=== PATIENT | male | born 1950 | race Two or more races ===

== ENCOUNTER → 2024-07-03 | Outpatient (CLI) | payer OTHER, MEDICAID, SELFPAY ==
[2024-07-03 13:33] LABS: Basophils % (Auto) 0 % (0-2.5); Eosinophils % (Auto) 1 % (0-10); Hematocrit 26.8 % (41.0-53.0); Hemoglobin 8.9 g/dL (13.5-16.0); Immature Granulocytes % (Auto) 0 % (0-0); Immature Reticulocyte Fraction 11.8 % (2.3-13.4); Lymphocytes # (Auto) 0.8 Thou/mm3 (1.0-4.8); Lymphocytes % (Auto) 29 % (10-50); Mean Corpuscular HGB Conc 33.2 g/dl (31.0-37.0); Mean Corpuscular Hemoglobin 34.2 pg (25.0-35.0); Mean Corpuscular Volume 103 fL (80-100); Monocytes # (Auto) 0.3 Thou/mm3 (0.0-0.8); Monocytes % (Auto) 11 % (0-12); Neutrophils # (Auto) 1.6 Thou/mm3 (1.8-7.7); Neutrophils % (Auto) 59 % (37-80); Nucleated Red Blood Cell % 0 /100 WBC (0); Platelet Count 169 Thou/mm3 (140-440); RDW Standard Deviation 52.8 fL (35.1-43.9); Reticulocyte % (Auto) 1.3 % (0.5-1.5); Reticulocyte Absolute Auto 32.5 Biln/L (25.0-75.0); Reticulocyte Hgb Content 36.3 pg (28.0-35.0)
[2024-07-03 13:40] LABS: Alanine Aminotransferase 29 U/L (10-49); Albumin/Globulin Ratio 0.8 (1.2-2.2); Alkaline Phosphatase 67 U/L (46-116); Anion Gap 6 (7-16); Aspartate Amino Transferase 21 U/L (0-34); BUN/Creatinine Ratio 27 Ratio (12-20); Bilirubin,Total 0.4 mg/dL (0.3-1.2); Blood Urea Nitrogen 32 mg/dL (9-23); Calcium 9.9 mg/dL (8.3-10.6); Calcium (Corrected) 9.9 mg/dL (8.5-10.1); Carbon Dioxide 27.9 mMol/L (20.0-31.0); Chloride 101 mMol/L (98-107); Creatinine (Component) 1.2 mg/dL (0.6-1.3); Globulin 5.1 gm/dL (2.3-3.5); Glucose 118 mg/dL (74-106); Osmolality,Calculated 278 (275-295); Potassium 3.8 mMol/L (3.4-5.1); Sodium 135 mMol/L (136-145); Total Protein 9.1 gm/dL (5.7-8.2); eGFR > 60 See Note
[2024-07-03 13:47] LABS: Ferritin 230 ng/mL (10.5-307.3); Total Iron Binding Capacity 233 mcg/dL (250-425)
[2024-07-03 13:50] LABS: Folate 13.53 ng/mL (>5.38); Vitamin B12 814 pg/mL (211-911)
[2024-07-03 13:56] LABS: Iron 77 mcg/dL (65-175); Percent Iron Saturation 33 % (20-55); Unsaturated Iron Binding 156 (225-295)
[2024-07-03 13:57] LABS: White Blood Count 2.8 Thou/mm3 (3.8-10.6)
== END | disposition home or self-care (01) ==
LOC: SCTO 11:45
PROVIDERS: PCP Family Medicine; Referring Provider Nurse Practitioner Family; Visit Provider Nurse Practitioner Family
DX: C25.9 Malignant neoplasm of pancreas, unspecified (principal)
CPT/HCPCS: 36415; 80053; 82607; 82728; 82746; 83540; 83550; 85025; 85046

== ENCOUNTER 2024-07-04 12:59 | Outpatient (RCR) | payer OTHER, MEDICAID, MEDICARE, SELFPAY ==
--- NOTE | 2024-07-16 19:16 | CTCFLWUP_ITS ---
Patient: BRISEYDA WALSH : 1950 Page 2 of 2 FOLLOW UP NOTE DATE OF SERVICE: 07/04/2024 NAME: BRISEYDA WALSH ACCOUNT: [id number] : 1950 AGE: 73 REASON FOR VISIT: Patient follows here for concern for elevated CA 19-9. ONCOLOGY HISTORY: There is no diagnosis of cancer for Mr. Walsh. INTERVAL HISTORY: PREVIOUS NOTE: Briseyda Walsh is a 73-year-old Malawian-speaking male who had been having intermittent abdominal pain. On 04/26/2018 he had a CA 19?9 drawn which was 145. Upper limit of nor mal is less than 34. 07/01/2018: CT scan of the chest abdomen and pelvis with IV contrast CA 19?9 trend: 04/26/2018: CA 19?9 is 145. 06/08/2018: CA 19?9 is 166. 09/28/2018: CA 19?9 is 183. 11/09/2018: CA 19?9 is 206. 03/03/2019: CA 19?9 is 189. 02/14/2020: CA 19?9 is 378. 03/29/2020: CA 19?9 is 210 09/30/2020: CA 19?9 is 212. 10/18/2018: CT scan of the chest abdomen and pelvis with IV contrast - 10/31/2018: MRI of the abdomen with contrast - 10/31/2018: Cholangiopancreatography MRI? 2019: Patient had EGD and colonoscopy done by Dr. Lozano. According to patient there were negative st udies. 08/05/2019: MRI of the abdomen with contrast? 04/03/2020: MRI of the abdomen and pelvis with contrast?no interval metastatic disease in the pelvis. 03/28/2021: Creatinine 1.9, EGFR 49. 05/08/2022: CA 19- 9 is 190. 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 MEDICATIONS: 1. Aspir-Low - 81 mg 1 tab Daily 2. atorvastatin - 40 mg 1 tab Daily 3. doxazosin - 8 mg 1 tab Daily 4. ferrous sulfate - 325 mg (65 mg iron) 1 tab Daily 5. lisinopril - 2.5 mg 1 tab Daily Medications Last Reconciled by Analisa Clifford MA on 07/04/2024 ALLERGIES: No Known Drug Allergies REVIEW OF SYSTEMS: A complete 14-point review of systems was performed and is negative except as noted in interval histo ry. PHYSICAL EXAMINATION: VITAL SIGNS: Temperature?98.7, B/P?165/85, Oxygen?Saturation?99% Weight?157?lbs PAIN: 0 - No pain EYE: Conjunctivae is pink. MOUTH: Oral cavity is dry. NECK: Supple, no adenopathy CHEST: Clear to auscultation. No wheezes or rales audible. CARDIAC: Rhythm regular, no murmurs or gallops present. ABDOMEN: Soft. No hepatomegaly. No splenomegaly. No areas of tenderness in the abdomen. EXTREMITIES: No pedal edema or cyanosis. LABORATORY DATA: I have personally reviewed and interpreted each of the patient?s relevant lab tests, abnormal finding s are below: Date 07/12/24 ??WHITE?BLOOD?COUNT?(Thou/mm3) 2.6?L ??RED?BLOOD?COUNT?(Miln/mm3) 2.50?L ??HEMOGLOBIN?(gm/dl) 8.5?L ??HEMATOCRIT?(%) 25.1?L ??PLATELET?COUNT?(Thou/mm3) 158 ??NEUTROPHILS?%,?AUTO?(%) 69 ??LYMPH?%,?AUTO?(%) 23 ??NEUTROPHILS,?AUTO?(Thou/mm3) 1.8 IMPRESSION/PLAN: #1 elevated CA 19-9 I discussed with Mr. Walsh that he has been followed for elevated tumor marker for many years Tumor marker is now normal CA 19-9 can be elevated in benign conditions causing obstruction We do not need any further follow-up of this Patient should have routine screening #2 anemia Reviewed patient's lab and do not indicate iron deficiency B12 and folic acid is normal Will do bone marrow biopsy as patient is having progressive anemia CBC CMP CEA CA 19-9 B12 folic acid BCR-ABL transcript serum protein electrophoresis serum amino phere sis multiple myeloma panel on bone marrow aspirate Return to clinic with above bone marrow biopsy Evaluate for multiple myeloma and leukemia RETURN TO CLINIC: 4 weeks BILLING AND COMPLIANCE: I reviewed external records from providers outside my specialty as summarized above. I spent a total of 50 minutes on this patient?s care on the day of their visit excluding time spent related to any bi lled procedures. This time includes time spent with the patient as well as time spent documenting in the medical record, reviewing patients records and tests, obtaining history, placing orders, communi cating with other healthcare professionals, counseling the patient, family or caregiver, and/or care coordination for the diagnoses above. Electronically Signed by: Rebel Hatch MD T: 7:12 PM CC: Araceli,? PCP: Lex Atkins Referring: Lex Atkins This document was completed utilizing speech recognition software. Grammatical errors, random word in sertions, pronoun errors, and incomplete sentences are an occasional consequence of this system due t o software limitations, ambient noise, and hardware issues. Any formal questions or concerns about th e content, text or information contained within the body of this dictation should be directly address ed to the provider for clarification.
== END 2024-08-01 23:59 | disposition home or self-care (01) ==
LOC: SCTC 12:59
PROVIDERS: PCP Family Medicine; Referring Provider Family Medicine; Visit Provider Internal Medicine Hematology & Oncology
DX: R97.8 Other abnormal tumor markers (principal); D64.9 Anemia, unspecified
CPT/HCPCS: 99213; G0463

== ENCOUNTER → 2024-07-12 | Outpatient (CLI) | payer OTHER, MEDICAID, SELFPAY ==
[2024-07-12 16:17] LABS: Basophils % (Auto) 0 % (0-2.5); Eosinophils % (Auto) 1 % (0-10); Hematocrit 25.1 % (41.0-53.0); Immature Granulocytes % (Auto) 0 % (0-0); Immature Granulocytes Auto 0.01 Thou/mm3 (0.00-0.00); Lymphocytes # (Auto) 0.6 Thou/mm3 (1.0-4.8); Lymphocytes % (Auto) 23 % (10-50); Mean Corpuscular HGB Conc 33.9 g/dl (31.0-37.0); Mean Corpuscular Volume 100 fL (80-100); Monocytes # (Auto) 0.2 Thou/mm3 (0.0-0.8); Monocytes % (Auto) 7 % (0-12); Neutrophils # (Auto) 1.8 Thou/mm3 (1.8-7.7); Neutrophils % (Auto) 69 % (37-80); Nucleated Red Blood Cell % 0 /100 WBC (0); Platelet Count 158 Thou/mm3 (140-440); RDW Standard Deviation 50.1 fL (35.1-43.9)
[2024-07-12 16:25] LABS: Hemoglobin 8.5 g/dL (13.5-16.0); White Blood Count 2.6 Thou/mm3 (3.8-10.6)
== END | disposition home or self-care (01) ==
PROVIDERS: PCP Family Medicine; Referring Provider Family Medicine; Visit Provider Family Medicine
DX: D64.9 Anemia, unspecified (principal); I10 Essential (primary) hypertension
CPT/HCPCS: 36415; 85025

== ENCOUNTER 2024-07-20 11:39 | Emergency (ER) | payer OTHER, SELFPAY ==
[2024-07-20 11:49] VITALS: BP 125/80; PULSE 79; RESP 19; TEMP 36.9; O2SAT 98; BMI 26.6
[2024-07-20] MEDS: KETOROLAC INJ 60 MG/2 ML VIAL 30 MG IM (12:43)
[2024-07-20] MEDS: predniSONE 20 MG TABLET 60 MG PO (12:44)
--- NOTE | 2024-07-20 12:55 | EDNOTE_ITS ---
ED Back Injury Pain RME/HPI General Chief Complaint: Back Pain/Injury Stated Complaint: lower back pain x 5 days Time Seen by Provider: 07/20/24 11:50 Source: patient Arrival date/time: 07/20/24 11:39 This is a 73-year-old male who presented to the emergency department with complaints of lumbar lower back pain. Patient reports history of 20 years bulging disc and lower back pain. Reports he was at home moving boxes and lifting heavy objects when he exacerbated his back. He routinely takes Tylenol or ibuprofen for pain however today the pain was worse prompting his visit today. Denies any urinary symptoms, no bowel or bladder dysfunction, patient is requesting a pain shot for his symptoms. Mode of arrival: ambulatory Related Data Home Medications ?Medication ?Instructions ?Recorded ?Confirmed aspirin 325 mg tablet,delayed 81 mg PO QDAY 10/10/21 03/26/23 release (Ecotrin) doxazosin 8 mg tablet 8 mg PO DAILY 10/10/21 03/26/23 lisinopril 2.5 mg tablet (Zestril) 2.5 mg PO QDAY 10/10/21 03/26/23 Previous Rx's ?Medication ?Instructions ?Recorded atorvastatin 20 mg tablet 40 mg (2 x 20 mg) PO HS #30 tabs 01/07/19 lidocaine 5 % topical patch 1 patch topical QDAY PRN back pain 07/20/24 #15 ea lidocaine 4 % topical patch 1 patch topical BID PRN pain #6 ea 07/21/24 Allergies Allergy/AdvReac Type Severity Reaction Status Date / Time No Known Allergies Allergy Verified 07/20/24 11:42 Review of Systems Review of Systems Systems Reviewed: All systems reviewed, normal except as documented Narrative Review of Systems: Gen: No fever, no chills, no weight loss EYES: No discharge, no visual changes, no pain HEENT: No ear pain, no congestion, no sore throat PULM: No shortness of breath, no cough, no congestion CV: No chest pain, no dyspnea on exertion, no palpitations GI: No nausea, no vomiting, no diarrhea, no pain, no constipation : No frequency, no urgency,? no dysuria Musc/skel: No joint pain, ++ back pain Skin: No rash? ED Exam Narrative Physical exam: General: Sittiing in Exam table in no acute distress, answering questions appropriately HENT: normocephalic, atraumatic, EOMI, PERRLA, moist mucous membranes Chest: chest wall is nontender Cardiac: regular rate and rhythm, normal S1 and S2, no murmurs, rubs, or gallops, capillary refill ?2 seconds Pulmonary: clear to auscultation bilaterally, no wheezing, crackles, or rhonchi Abdominal: active bowel sounds, soft, nontender, nondistended Neuro: A&OX3, CN II-XII intact, sensation grossly intact bilaterally in UE and LE. Skin: no rashes, no ecchymosis Ext: no lower extremity edema Course Quality Measures none Orders Category Date Time Status Ketorolac Inj [Toradol Inj] Med 07/20/24 12:04 Discontinued 30 mg IM X1 ONE predniSONE Med 07/20/24 12:04 Discontinued 60 mg PO X1 ONE Vital Signs Vital signs: Vital Signs Temperature 98.5 F 07/20/24 11:49 Pulse Rate 79 07/20/24 11:49 Respiratory Rate 19 07/20/24 11:49 Blood Pressure 125/80 07/20/24 11:49 Pulse Oximetry (%) 98 07/20/24 11:49 Oxygen Delivery Method Room Air 07/20/24 11:49 Back Pain / Injury Patient data External records reviewed:: [facility] previous records Clinical information provided by:: patient Social determinants that could affect healthcare access:: none Patient has the following chronic illnesses:: no How is presenting disease/condition affected by chronic disease/condition?: no chronic disease Evaluation data The following diagnostics were reviewed and interpreted by me:: radiology exam(s) Lab and/or radiology exams considered but not ordered:: no Interpretation Summary: no Medications / Prescriptions Medications or Prescriptions considered but not ordered:: no Medication administrations:: Medication Administration History Discontinued Medications Ketorolac Tromethamine (Ketorolac Inj 60 Mg/2 Ml Vial) 30 mg IM X1 ONE Stop: 07/20/24 12:05 Last Admin: 07/20/24 12:43 Dose: 30 mg Documented By: GM Prednisone (Prednisone 20 Mg Tablet) 60 mg PO X1 ONE Stop: 07/20/24 12:05 Last Admin: 07/20/24 12:44 Dose: 60 mg Documented By: GM All medications administered and effective Consultations Consultation(s) initiated? (list below): No Diagnosis Differential diagnosis back pain/injury: lumbar radiculopathy, sciatica and strain of lumbar region Most likely diagnosis given after review of the tests above:: Lumbar region strain Admission Indicated Admission indicated?: not indicated Admission Request Was there a request for admission?: No Disposition Plan Disposition Plan: Discharge Discharge Attestation Discharge Attestation: The patient and all family members were given an opportunity to ask questions and understood the discharge instructions. Discharge instructions specifically effects, indications for sooner follow up or return to the emergency department, and the expected course of current diagnosis. Patient condition: Stable Discharge Plan Plan Patient Disposition: HOME (Self Care) Patient condition on transfer: Stable Prescriptions/Referrals Prescriptions/Med Rec: New lidocaine 5 % adhesive patch,medicated 1 patch topical QDAY PRN (Reason: back pain ) Qty: 15 0RF Rx Instructions: leave on most painful area for up to 12 hrs lidocaine 4 % adhesive patch,medicated 1 patch topical BID PRN (Reason: pain) Qty: 6 0RF No Action atorvastatin 20 mg Tablet 40 mg PO HS Qty: 30 0RF doxazosin 8 mg tablet 8 mg PO DAILY aspirin [Ecotrin] 325 mg Tablet,Delayed Release (Dr/Ec) 81 mg PO QDAY lisinopril [Zestril] 2.5 mg Tablet 2.5 mg PO QDAY Referrals: Lex Atkins MD [Primary Care Provider] - In 1 week Problem List Clinical Impression: Lumbar radiculopathy Patient/Caregiver Discharge Instructions Discharge Activity: activity as tolerated Education Materials: ED Sciatica Additional Instructions: Please follow-up with your primary doctor for further care. Given 1 shot of pain medication please you can continue with NSAID or Tylenol for pain Return to the emergency department this any worsening symptoms or change in condition Print Language: Bulgarian Stand Alone Forms: Holly Award Info., Patient Portal Info Letter PA/BRANDIE Supervising Physician GIOVANNI/BRANDIE Supervising Physician: Dr. Carlton
== END 2024-07-20 14:22 | disposition home or self-care (01) ==
PROVIDERS: Emergency Provider Emergency Medicine; PCP Family Medicine
DX: M54.16 Radiculopathy, lumbar region (principal)
CPT/HCPCS: 96372; 99283; J1885; J7512

== ENCOUNTER → 2024-08-16 | Outpatient (CLI) | payer MEDICARE, MEDICAID, SELFPAY ==
[2024-08-16 11:23] LABS: Flow Cytometry* See Sep Rpt
[2024-08-16 11:46] LABS: Basophils % (Auto) 0 % (0-2.5); Eosinophils % (Auto) 1 % (0-10); Hematocrit 25.3 % (41.0-53.0); Immature Granulocytes % (Auto) 0 % (0-0); Immature Granulocytes Auto 0.01 Thou/mm3 (0.00-0.00); Immature Reticulocyte Fraction 8.6 % (2.3-13.4); Lymphocytes # (Auto) 0.8 Thou/mm3 (1.0-4.8); Lymphocytes % (Auto) 34 % (10-50); Mean Corpuscular HGB Conc 34.4 g/dl (31.0-37.0); Mean Corpuscular Hemoglobin 34.8 pg (25.0-35.0); Mean Corpuscular Volume 101 fL (80-100); Monocytes # (Auto) 0.2 Thou/mm3 (0.0-0.8); Monocytes % (Auto) 8 % (0-12); Neutrophils # (Auto) 1.4 Thou/mm3 (1.8-7.7); Neutrophils % (Auto) 57 % (37-80); Nucleated Red Blood Cell % 0 /100 WBC (0); Platelet Count 170 Thou/mm3 (140-440); RDW Standard Deviation 51.3 fL (35.1-43.9); Reticulocyte % (Auto) 1.3 % (0.5-1.5); Reticulocyte Hgb Content 33.8 pg (28.0-35.0)
[2024-08-16 11:54] LABS: White Blood Count 2.5 Thou/mm3 (3.8-10.6)
[2024-08-16 11:55] LABS: Hemoglobin 8.7 g/dL (13.5-16.0)
[2024-08-16 11:58] LABS: Alanine Aminotransferase 18 U/L (10-49); Albumin/Globulin Ratio 0.7 (1.2-2.2); Alkaline Phosphatase 79 U/L (46-116); Anion Gap 6 (7-16); Aspartate Amino Transferase 20 U/L (0-34); BUN/Creatinine Ratio 22 Ratio (12-20); Bilirubin,Total 0.4 mg/dL (0.3-1.2); Blood Urea Nitrogen 26 mg/dL (9-23); Calcium 9.8 mg/dL (8.3-10.6); Calcium (Corrected) 9.8 mg/dL (8.5-10.1); Carbon Dioxide 26.5 mMol/L (20.0-31.0); Chloride 106 mMol/L (98-107); Creatinine (Component) 1.2 mg/dL (0.6-1.3); Globulin 5.7 gm/dL (2.3-3.5); Glucose 100 mg/dL (74-106); Osmolality,Calculated 280 (275-295); Potassium 4.2 mMol/L (3.4-5.1); Sodium 138 mMol/L (136-145); Total Protein 9.7 gm/dL (5.7-8.2); eGFR > 60 See Note
[2024-08-16 12:07] LABS: Carcinoembryonic Antigen 2.1 ng/mL (0.0-5.0); Folate 12.61 ng/mL (>5.38); Vitamin B12 730 pg/mL (211-911)
[2024-08-23 13:48] LABS: Abnormal protein band 1 3.9 g/dL (NONE DETECTED); Albumin 4.1 g/dL (3.8-4.8); Alpha-1-Globulin 0.3 g/dL (0.2-0.3); Alpha-2-Globulin 0.7 g/dL (0.5-0.9); Beta-1-Globulin 0.3 g/dL (0.4-0.6); Beta-2-globulin 0.2 g/dL (0.2-0.5); Kappa Light Chain, Free 1615.3 mg/L (3.3-19.4); Lambda Light Chain, Free 10.4 mg/L (5.7-26.3)
[2024-08-24 06:41] LABS: Protein, total, serum 9.7 g/dL (6.1-8.1)
[2024-08-24 06:42] LABS: Beta 2 Microglobulin 4.77 mg/L (< OR = 2.51); CA 19-9 Antigen* 163 U/mL (<34); Kappa/Lambda, Free Ratio 155.32 (0.26-1.65); P190 BCR-ABL1 NOT DETECTED; P210 BCR-ABL1 NOT DETECTED
== END | disposition home or self-care (01) ==
PROVIDERS: PCP Family Medicine; Referring Provider Internal Medicine Hematology & Oncology; Visit Provider Internal Medicine Hematology & Oncology
DX: C25.9 Malignant neoplasm of pancreas, unspecified (principal); D61.818 Other pancytopenia
CPT/HCPCS: 36415; 80053; 81206; 82232; 82378; 82607; 82746; 83521; 84155; 84165; 85025; 85046; 86301; 86334

== ENCOUNTER → 2024-09-11 | Outpatient (CLI) | payer MEDICARE, MEDICAID, SELFPAY ==
--- NOTE | 2024-09-11 14:00 | XR_ITS ---
Examination: Metastatic bone survey 15 views TECHNIQUE: Marlon left lateral skull series, lateral cervical thoracic and lumbar spine, upright PA chest, AP right humerus AP left humerus, AP pelvis, AP right femur, AP left femur, AP right tibia-fibula, AP left tibia fibula, AP right forearm, AP left forearm 15 views Exam date and time: September 11, 2024 1414 hours INDICATIONS: Diagnosis malignant neoplasm pancreas, staging FINDINGS: Intact cranial vault Moderate degenerative disc disease C6-C7 Normal heart size No metastatic pulmonary nodules Suspicious for bone destruction involving the inferior margin L2 Subtle radiolucencies in the bilateral hips and inferior pubic rami IMPRESSION: Suspicious for bone destruction involving the inferior margin L2, recommend MRI lumbar spine follow-up pre and postcontrast Suspicious for osteolytic lesions in the bilateral hips and inferior pubic rami, consider MRI pelvis follow-up pre and postcontrast
== END | disposition home or self-care (01) ==
LOC: SDIM 13:45
PROVIDERS: PCP Family Medicine; Referring Provider Internal Medicine Hematology & Oncology; Visit Provider Internal Medicine Hematology & Oncology
DX: R93.7 Abnormal findings on diagnostic imaging of other parts of musculoskeletal system (principal); C25.9 Malignant neoplasm of pancreas, unspecified
CPT/HCPCS: 77074

== ENCOUNTER → 2024-09-13 | Outpatient (CLI) | payer MEDICARE, SELFPAY ==
[2024-09-13 11:04] LABS: Collection Type, Urine Clean Catch
[2024-09-13 11:24] LABS: Basophils % (Auto) 0 % (0-2.5); Eosinophils % (Auto) 2 % (0-10); Hematocrit 25.8 % (41.0-53.0); Immature Granulocytes % (Auto) 0 % (0-0); Immature Granulocytes Auto 0.01 Thou/mm3 (0.00-0.00); Lymphocytes # (Auto) 0.8 Thou/mm3 (1.0-4.8); Lymphocytes % (Auto) 31 % (10-50); Mean Corpuscular HGB Conc 33.3 g/dl (31.0-37.0); Mean Corpuscular Hemoglobin 34.3 pg (25.0-35.0); Mean Corpuscular Volume 103 fL (80-100); Monocytes # (Auto) 0.2 Thou/mm3 (0.0-0.8); Monocytes % (Auto) 8 % (0-12); Neutrophils # (Auto) 1.5 Thou/mm3 (1.8-7.7); Neutrophils % (Auto) 59 % (37-80); Nucleated Red Blood Cell % 0 /100 WBC (0); Platelet Count 183 Thou/mm3 (140-440); RDW Standard Deviation 51.7 fL (35.1-43.9); Red Blood Count 2.51 Miln/mm3 (4.50-5.90)
[2024-09-13 11:36] LABS: Hemoglobin 8.6 g/dL (13.5-16.0); White Blood Count 2.6 Thou/mm3 (3.8-10.6)
[2024-09-13 11:37] LABS: Bilirubin,Urine Negative (Negative); Blood,Urine Negative (Negative); Clarity,Urine Clear (Clear/Hazy); Color,Urine Lt-Yellow (Lt Yel-Yel); Glucose, Urine Negative (Negative); Ketones,Urine Negative (Negative); Leukocyte Esterase,Urine Negative (Negative); Nitrite,Urine Negative (Negative); Protein,Urine Trace (Neg - Trace); RBC,Urine 2 /hpf (0-3); Specific Gravity,Urine 1.023 (1.001-1.035); Squamous Epithelial Cell,Urine < 1 /hpf (0-5); Urobilinogen,Urine Negative mg/dL (0.0-1.0); WBC,Urine 1 /hpf (0-5)
[2024-09-13 12:00] LABS: Alanine Aminotransferase 20 U/L (10-49); Albumin, Serum 3.6 gm/dL (3.4-4.8); Albumin/Globulin Ratio 0.7 (1.2-2.2); Alkaline Phosphatase 64 U/L (46-116); Anion Gap 0 (7-16); Aspartate Amino Transferase 20 U/L (0-34); BUN/Creatinine Ratio 26 Ratio (12-20); Bilirubin,Total 0.4 mg/dL (0.3-1.2); Blood Urea Nitrogen 29 mg/dL (9-23); Calcium 9.9 mg/dL (8.3-10.6); Calcium (Corrected) 10.2 mg/dL (8.5-10.1); Carbon Dioxide 26.3 mMol/L (20.0-31.0); Cardiac Risk Estimate 2.1 RATIO (4.0-6.7); Chloride 109 mMol/L (98-107); Cholesterol 90 mg/dL (132-200); Creatinine (Component) 1.1 mg/dL (0.6-1.3); Globulin 5.5 gm/dL (2.3-3.5); Glucose 99 mg/dL (74-106); HDL Cholesterol 42 mg/dL (40-60); LDL Cholesterol,Calculated 34 mg/dL (0-130); Osmolality,Calculated 275 (275-295); Potassium 4.2 mMol/L (3.4-5.1); Sodium 135 mMol/L (136-145); Thyroid Stimulating Hormone 5.65 uIU/mL (0.55-4.78); Total Protein 9.1 gm/dL (5.7-8.2); Triglycerides 70 mg/dL (30-150); eGFR > 60 See Note
== END | disposition home or self-care (01) ==
LOC: COPL 10:18
PROVIDERS: PCP Family Medicine; Referring Provider Family Medicine; Visit Provider Family Medicine
DX: Z00.00 Encounter for general adult medical examination without abnormal findings (principal); I10 Essential (primary) hypertension; E78.2 Mixed hyperlipidemia
CPT/HCPCS: 36415; 80053; 80061; 81001; 84443; 85025

== ENCOUNTER 2024-09-27 15:39 | Outpatient (RCR) | payer MEDICARE, SELFPAY ==
--- NOTE | 2024-10-02 01:14 | CTCFLWUP_ITS ---
Patient: BRISEYDA WALSH : 1950 Page 3 of 5 FOLLOW UP NOTE DATE OF SERVICE: 09/27/2024 NAME: BRISEYDA WALSH ACCOUNT: [id number] : 1950 AGE: 73 INTERVAL HISTORY: PREVIOUS NOTE: Briseyda Walsh is a 73-year-old Australian-speaking male who had been having intermittent abdominal pain. On 04/26/2018 he had a CA 19?9 drawn which was 145. Upper limit of normal is less than 34. At last visit I had concern for causes of anemia and patient's myeloma workup was done. Patient is here to follow-up on results 07/01/2018: CT scan of the chest abdomen and pelvis with IV contrast CA 19?9 trend: 04/26/2018: CA 19?9 is 145. 06/08/2018: CA 19?9 is 166. 09/28/2018: CA 19?9 is 183. 11/09/2018: CA 19?9 is 206. 03/03/2019: CA 19?9 is 189. 02/14/2020: CA 19?9 is 378. 03/29/2020: CA 19?9 is 210 09/30/2020: CA 19?9 is 212. 10/18/2018: CT scan of the chest abdomen and pelvis with IV contrast - 10/31/2018: MRI of the abdomen with contrast - 10/31/2018: Cholangiopancreatography MRI? 2019: Patient had EGD and colonoscopy done by Dr. Lozano. According to patient there were negative studies. 08/05/2019: MRI of the abdomen with contrast? 04/03/2020: MRI of the abdomen and pelvis with contrast?no interval metastatic disease in the pelvis. 03/28/2021: Creatinine 1.9, EGFR 49. 05/08/2022: CA 19- 9 is 190. 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 Zaldivar dermatology 09/03/2023: CA 19?9 is 270 03/13/2024: CA 19?9 is 161, hemoglobin 9.6, MCV 800, ANC 1.8, WBC 3.0, iron saturation 37%, ferritin 162, B12 is 870 folate is 16.96 04/24/2024: CEA 19?9 is 161, hemoglobin 10.3, MCV 99, ANC 2.0, WBC 3.1, iron saturation 37%, ferritin 180, B12 is 1,239 ONCOLOGY HISTORY: DIAGNOSIS: Malignant neoplasm of pancreas, unspecified [ICD10] C25.9 DATE OF DIAGNOSIS: STAGE/TNM: TREATMENT HISTORY: Care?Plan Start?Date Cycle Day Intent HISTORY OF PRESENT ILLNESS: OTHER MEDICAL HISTORY/CONDITIONS: FAMILY HISTORY: SOCIAL HISTORY: MEDICATIONS: 1. Aspir-Low - 81 mg 1 tab Daily 2. atorvastatin - 40 mg 1 tab Daily 3. doxazosin - 8 mg 1 tab Daily 4. ferrous sulfate - 325 mg (65 mg iron) 1 tab Daily 5. lisinopril - 2.5 mg 1 tab Daily Medications Last Reconciled by Analisa Clifford MA on 09/27/2024 ALLERGIES: No Known Drug Allergies REVIEW OF SYSTEMS: A complete 14-point review of systems was performed and is negative except as noted in interval history. PHYSICAL EXAMINATION: VITAL SIGNS: Temperature?98.4, B/P?113/67, Oxygen?Saturation?97% PAIN: 0 - No pain EYE: Conjunctivae is pink. MOUTH: Oral cavity is dry. NECK: Supple, no adenopathy CHEST: Clear to auscultation. No wheezes or rales audible. CARDIAC: Rhythm regular, no murmurs or gallops present. ABDOMEN: Soft. No hepatomegaly. No splenomegaly. No areas of tenderness in the abdomen. EXTREMITIES: No pedal edema or cyanosis. LABORATORY DATA: I have personally reviewed and interpreted each of the patient?s relevant lab tests, abnormal findings are below: Date 09/13/24 ??WHITE?BLOOD?COUNT?(Thou/mm3) 2.6?L ??RED?BLOOD?COUNT?(Miln/mm3) 2.51?L ??HEMOGLOBIN?(gm/dl) 8.6?L ??HEMATOCRIT?(%) 25.8?L ??PLATELET?COUNT?(Thou/mm3) 183 ??NEUTROPHILS?%,?AUTO?(%) 59 ??LYMPH?%,?AUTO?(%) 31 ??NEUTROPHILS,?AUTO?(Thou/mm3) 1.5?L ASSESSMENT/PLAN: #1 elevated CA 19-9 I discussed with Mr. Walsh that he has been followed for elevated tumor marker for many years Tumor marker is now normal CA 19-9 can be elevated in benign conditions causing obstruction We do not need any further follow-up of this Patient should have routine screening #2 anemia concerning for multiple myeloma Reviewed patient's lab and do not indicate iron deficiency B12 and folic acid is normal CBC CMP CEA CA 19-9 B12 folic acid BCR-ABL transcript serum protein electrophoresis serum amino pheresis multiple myeloma panel on bone marrow aspirate. Patient's kappa lambda chains reviewed and are severely elevated Return to clinic with above bone marrow biopsy Evaluate for multiple myeloma and leukemia X-ray is concerning for lytic lesions PET CT scan initial screening for multiple myeloma MRI lumbar spine with and without contrast PSA and alpha-fetoprotein for skin screening Foundation heme on bone marrow biopsy RETURN TO CLINIC: 2 to 4 weeks with the results BILLING AND COMPLIANCE: I reviewed external records from providers outside my specialty as summarized above. I spent a total of 50 minutes on this patient?s care on the day of their visit excluding time spent related to any billed procedures. This time includes time spent with the patient as well as time spent documenting in the medical record, reviewing patients records and tests, obtaining history, placing orders, communicating with other healthcare professionals, counseling the patient, family or caregiver, and/or care coordination for the diagnoses above. Electronically Signed by: Rebel Hatch MD T: 1:12 AM CC: Ricki?Jillian? PCP: Rebel Hatch Referring: Rebel Hatch This document was completed utilizing speech recognition software. Grammatical errors, random word insertions, pronoun errors, and incomplete sentences are an occasional consequence of this system due to software limitations, ambient noise, and hardware issues. Any formal questions or concerns about the content, text or information contained within the body of this dictation should be directly addressed to the provider for clarification.
== END 2024-09-29 23:59 | disposition home or self-care (01) ==
LOC: SCTC 15:39
PROVIDERS: PCP Family Medicine; Referring Provider Internal Medicine Hematology & Oncology; Visit Provider Internal Medicine Hematology & Oncology
DX: R97.8 Other abnormal tumor markers (principal); D64.9 Anemia, unspecified; R10.9 Unspecified abdominal pain; Z71.2 Person consulting for explanation of examination or test findings
CPT/HCPCS: 99213; G0463

== ENCOUNTER 2024-10-04 07:24 | Outpatient (CLI) | payer MEDICARE, SELFPAY ==
[2024-10-02 12:01] VITALS: BMI 25.4
--- NOTE | 2024-10-03 11:58 | EKG_ITS ---
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
[2024-10-03 17:33] LABS: Basophils % (Auto) 0 % (0-2.5); Eosinophils % (Auto) 0 % (0-10); Hematocrit 23.7 % (41.0-53.0); Immature Granulocytes % (Auto) 0 % (0-0); Immature Granulocytes Auto 0.01 Thou/mm3 (0.00-0.00); Lymphocytes % (Auto) 28 % (10-50); Mean Corpuscular HGB Conc 34.2 g/dl (31.0-37.0); Mean Corpuscular Hemoglobin 34.2 pg (25.0-35.0); Mean Corpuscular Volume 100 fL (80-100); Monocytes # (Auto) 0.2 Thou/mm3 (0.0-0.8); Monocytes % (Auto) 7 % (0-12); Neutrophils # (Auto) 2.3 Thou/mm3 (1.8-7.7); Neutrophils % (Auto) 65 % (37-80); Nucleated Red Blood Cell % 0 /100 WBC (0); Platelet Count 179 Thou/mm3 (140-440); RDW Standard Deviation 50.1 fL (35.1-43.9); Red Blood Count 2.37 Miln/mm3 (4.50-5.90); White Blood Count 3.5 Thou/mm3 (3.8-10.6)
[2024-10-03 17:35] LABS: Hemoglobin 8.1 g/dL (13.5-16.0)
[2024-10-03 17:40] LABS: INR 1.1 (0.9-1.3); Partial Thromboplastin Time 23.6 Seconds (22.0-36.0); Prothrombin Time 11.6 Seconds (9.0-12.2)
[2024-10-04] VITALS (7 sets, daily range): BP systolic 107–153; BP diastolic 58–80; PULSE 77–89; RESP 12–18; TEMP 36.7–36.9; O2SAT 95–100
--- NOTE | 2024-10-04 08:30 | XR_ITS ---
Examination: CT-guided percutaneous bone marrow aspiration right posterior superior iliac crest CT-guided bone biopsy deep, percutaneous, right posterior superior iliac crest Date and time of procedure: October 04, 2024 0941 hours INDICATIONS: Leukopenia, diagnosis malignant neoplasm pancreas Informed consent provided. A timeout was completed verifying correct patient, procedure, site and positioning. Technique: Axial 3 mm sections were obtained for localization of the right posterior superior iliac crest Appropriate area is marked. The patient's site was prepped and draped in sterile fashion Maximal sterile barrier technique utilized, including hand hygiene Local anesthesia was obtained with 1% lidocaine. Low dose protocols were performed. One or more of the following dose reduction techniques were used; automated exposure control, adjustment of the mA and/or KV according to patient size, use of iterative reconstruction technique. Utilizing CT fluoroscopic guidance 14-gauge bone marrow needle placed in the right posterior superior iliac crest 10 cc marrow removed, specimen indicated adequate by the technologist 5 cm bone core obtained Patient appears in stable condition during this procedure. At completion of the procedure, the patient is in satisfactory condition. Estimated blood loss 2 cc Complete pathology report to follow. Impression: Successful CT-guided percutaneous bone marrow aspiration right posterior superior iliac crest Successful CT-guided percutaneous bone biopsy deep right posterior superior iliac crest
[2024-10-04 09:27] LABS: Flow Cytometry* See Sep Rpt
[2024-10-04] MEDS: fentaNYL CIT INJ 50 mCg/ML AMP 2ML 100 MCG IVP (09:56)
== END 2024-10-04 11:15 | disposition home or self-care (01) ==
PROVIDERS: Radiology Diagnostic Radiology; PCP Family Medicine; Referring Provider Internal Medicine Hematology & Oncology; Visit Provider Internal Medicine Hematology & Oncology
DX: C25.9 Malignant neoplasm of pancreas, unspecified (principal); Z01.812 Encounter for preprocedural laboratory examination
CPT/HCPCS: 38222; 36415; 77012; 85025; 85610; 85730; 93005; J3010

== ENCOUNTER → 2024-10-09 | Outpatient (CLI) | payer MEDICARE, MEDICAID, SELFPAY ==
[2024-10-09 09:05] LABS: Collection Type, Urine Clean Catch
[2024-10-09 09:27] LABS: Basophils % (Auto) 0 % (0-2.5); Eosinophils % (Auto) 1 % (0-10); Hematocrit 26.2 % (41.0-53.0); Immature Granulocytes % (Auto) 0 % (0-0); Immature Granulocytes Auto 0.01 Thou/mm3 (0.00-0.00); Lymphocytes # (Auto) 0.7 Thou/mm3 (1.0-4.8); Lymphocytes % (Auto) 21 % (10-50); Mean Corpuscular HGB Conc 33.6 g/dl (31.0-37.0); Mean Corpuscular Volume 101 fL (80-100); Monocytes # (Auto) 0.2 Thou/mm3 (0.0-0.8); Monocytes % (Auto) 7 % (0-12); Neutrophils # (Auto) 2.3 Thou/mm3 (1.8-7.7); Neutrophils % (Auto) 71 % (37-80); Nucleated Red Blood Cell % 0 /100 WBC (0); Platelet Count 199 Thou/mm3 (140-440); RDW Standard Deviation 49.5 fL (35.1-43.9); Red Blood Count 2.59 Miln/mm3 (4.50-5.90); White Blood Count 3.3 Thou/mm3 (3.8-10.6)
[2024-10-09 09:35] LABS: Bilirubin,Urine Negative (Negative); Blood,Urine Negative (Negative); Clarity,Urine Clear (Clear/Hazy); Color,Urine Lt-Yellow (Lt Yel-Yel); Glucose, Urine Negative (Negative); Ketones,Urine Negative (Negative); Leukocyte Esterase,Urine Negative (Negative); Nitrite,Urine Negative (Negative); PH,Urine 6.5 (5.0-7.0); Protein,Urine 1+ (Neg - Trace); RBC,Urine 3 /hpf (0-3); Specific Gravity,Urine 1.021 (1.001-1.035); Squamous Epithelial Cell,Urine < 1 /hpf (0-5); Urobilinogen,Urine Negative mg/dL (0.0-1.0); WBC,Urine 2 /hpf (0-5)
[2024-10-09 09:45] LABS: Prostate Specific Antigen 1.31 ng/mL (0-4.00)
[2024-10-09 09:51] LABS: Alanine Aminotransferase 28 U/L (10-49); Albumin, Serum 3.9 gm/dL (3.4-4.8); Albumin/Globulin Ratio 0.6 (1.2-2.2); Alkaline Phosphatase 78 U/L (46-116); Anion Gap 3 (7-16); Aspartate Amino Transferase 24 U/L (0-34); BUN/Creatinine Ratio 25 Ratio (12-20); Bilirubin,Total 0.4 mg/dL (0.3-1.2); Blood Urea Nitrogen 32 mg/dL (9-23); Calcium 10.3 mg/dL (8.3-10.6); Calcium (Corrected) 10.4 mg/dL (8.5-10.1); Carbon Dioxide 27.4 mMol/L (20.0-31.0); Cardiac Risk Estimate 2.2 RATIO (4.0-6.7); Chloride 103 mMol/L (98-107); Cholesterol 95 mg/dL (132-200); Creatinine (Component) 1.3 mg/dL (0.6-1.3); Globulin 6.4 gm/dL (2.3-3.5); Glucose 111 mg/dL (74-106); HDL Cholesterol 43 mg/dL (40-60); LDL Cholesterol,Calculated 35 mg/dL (0-130); Osmolality,Calculated 274 (275-295); Potassium 4.5 mMol/L (3.4-5.1); Sodium 133 mMol/L (136-145); Thyroid Stimulating Hormone 3.69 uIU/mL (0.55-4.78); Total Protein 10.3 gm/dL (5.7-8.2); Triglycerides 83 mg/dL (30-150); eGFR 57 See Note
[2024-10-09 09:52] LABS: Hemoglobin 8.8 g/dL (13.5-16.0)
== END | disposition home or self-care (01) ==
PROVIDERS: PCP Family Medicine; Referring Provider Family Medicine; Visit Provider Family Medicine
DX: Z00.00 Encounter for general adult medical examination without abnormal findings (principal); E78.2 Mixed hyperlipidemia; I10 Essential (primary) hypertension
CPT/HCPCS: 36415; 80053; 80061; 81001; 84153; 84443; 85025

== ENCOUNTER 2024-10-19 09:15 | Outpatient (RCR) | payer MEDICARE, MEDICAID, SELFPAY ==
--- NOTE | 2024-10-13 12:24 | CTCCONSULT_ITS ---
[facility] [address] [place], [place] [address] Consultation Note Date: 10/13/2024 MR#: [id number] Name: BRISEYDA WALSH : 1950 Dx: C90.00 Multiple myeloma not in remission. Attending physician. Lex Atkins MD Reason for consultation. Patient with recent diagnosis of plasma cell myeloma with significant bone pain referred for urgent radiation oncology consultation. History of Present Illness: Patient is a 73-year-old gentleman with intermittent abdominal pain with elevated CA 19?9 of longstanding but imaging studies did not reveal any pancreatic mass or dilated duct or sign of any met disease. Patient however also had anemia concerning for multi myeloma and most recently had bone marrow aspirate and smear 10/04/2024 which revealed plasma cell myeloma 80% kappa restricted. FISH panel pending. Had bone survey September 11, 2024 which was suspicious of bone destruction L2 as well as osteolytic lesions in bilateral hips and inferior pubic rami. SPEP 08/16/2024 showed considerable elevation of kappa light chain 1615 and high kappa lambda ratio. Dr. Hatch has begun to see patient recently and was suspecting multiple myeloma and ordered bone marrow aspirate smear 10/04/2024 which revealed plasma cell myeloma 80% kappa restricted. FISH panel pending. MRI of L-spine and PET has also already been ordered. Past medical history. Long history of elevate skin cancers d CA 19-9 with no abdominal lesions noted. Hyperlipidemia depression hypertension skin cancers Meds. Tylenol #3 3 times daily as needed pain atorvastatin doxazosin lisinopril ferrous sulfate low-dose aspirin Allergies none known Social History: Patient retired bilingual [place]-speaking originally from [place]. Review of Systems: Pain controlled with pain most of the time. Denies any paralysis has mild constipation taking meds. Physical Exam: General: Well appearing gentleman in no acute distress HEENT: atraumatic normocephalic extraocular is intact no oral lesion no cervical or supraclavicular adenopathy CV: Chest clear to station heart regular rate and rhythm ABD: Soft and organomegaly tenderness EXT: No cyanosis clubbing or edema Back. Point tenderness in L3-4 region noted Assessment: 1. Patient with plasma cell myeloma 80% of bone marrow kappa restricted bone marrow aspirate smear FISH panel pending. [place] light chain considerably elevated on SPEP 2. Metastatic bone survey bone destruction L2 with osteolytic hips and inferior pubic rami. 3. MRI of L-spine and PET scan pending. 4. Has follow-up with patient care director oncologist Dr. Hatch next week. 5. I will see him following the imaging studies performed with the likely need for radiation therapy to L-spine area. 6. Currently on Tylenol 3 helping pain and I will adjust this as needed. 7. Thank you for allowing me to evaluate this patient. Cc Lex Atkins MD; Electronically signed by: Tejinder Najera MD, DABR 10/13/2024 12:22 PM
--- NOTE | 2024-10-13 16:30 | CTCTXPLN_ITS ---
[facility] [place] [address] [place], [place] [address] Physician Clinical Treatment Planning Note Date of Service: 10/13/2024 Name: BRISEYDA WALSH : 1950 The patient has agreed to proceed with Radiation therapy. Tests and supporting medical records were interpreted to assist in defining the tumor location and extent of disease. Further imaging will be necessary to contour and delineate the volume to which the XRT will be provided. A. Treatment Intent: palliative B. Modality: 6 MV C. Requested Technique:VMAT D. Treatment Site: L spine E. Critical structures to be contoured on plan: F. In order to accomplish this plan, I am ordering/Prescribing the followin. Simulations (s) will be performed to accomplish a reproducible treatment position, to determine optimal treatment portals/beam arrangements, to design beam modifying devices and verify treatment portals on patient prior to the commencement of Radiation Therapy.L spine 2. Devices; for immobilization and beam shaping:[place]ud [place] 3. CT Guidance for placement of XRT mix Scan area: 4. Portal images Frequency: 5. Invivo transit dose measurement once per week on all VMAT patients. 6. Special Physics Consult Requested for: 7. Other requests: Special procedure someone getting chemo /XRT G. Dose Objectives:palliative Electronically signed by: Tejinder Najera M.D. 10/13/2024 4:28 PM
--- NOTE | 2024-10-13 16:32 | CTCTXPLNST_ITS ---
Radiation Oncology Treatment Planning Sheet Name: BRISEYDA WALSH MR#: [id number] : 1950 Dx: C25.9 Malignant neoplasm of pancreas, unspecified Date of Service: 10/13/2024 Account #: ?? Pt Treatment Intent: curative palliative other: Stage: Procedure CPT # Ordered Spec. Procedure 45357 1 Mulligan Complex (set-up) 46463 L spine 1 Mulligan Simple 53569 IMRT Plan 10484 1 MLC Devices VMAT 10256 3 Mulligan 3 D 07267 TRTMT dev Complex 61916 vaklok 1 TRTMT dev simple 70848 Basic Néstor 34298 6 Special Dosimetry 34025 Spec Physics 17639 Port Films 11947 SRS Cranial/1FX 56026 SBR 5 FX or Less /ex: 5 = 5 fx 51260 IMRT Simple 25880 3000 10 IMRT Complex 02924 IGRT 73449 8 Rad del com 6-10 59682 Rad del com 11 93586 Cont Med Physics 70871 2 Treatment Planning 74908 1 Rad del com 20 mev 07512 Rad del inter 6 82528 Rad del inter 11 92014 Rad del simple 6-10 61000 Rad del simple 11 19203 Special Port Plan 26320 TRTMT dev inter 67172 Isodose Complex 70767 Isodose simple 01427 Resp Motion Mgmt Simulation 00272 Placement of Fiducial Markers 85859 Electronically Signed By: Tejinder Najera MD, DABR 10/13/2024 4:30 PM
--- NOTE | 2024-10-19 07:01 | CTCTXPLNST_ITS ---
Radiation Oncology Treatment Planning Sheet Name: BRISEYDA WALSH MR#: [id number] : 1950 Dx: C25.9 Malignant neoplasm of pancreas, unspecified Date of Service: 10/19/2024 Account #: ?? Pt Treatment Intent: curative palliative other: Stage: Procedure CPT # Ordered Spec. Procedure 68821 1 Mulligan Complex (set-up) 11719 L spine 1 Mulligan Simple 35695 1 IMRT Plan 61128 MLC Devices VMAT 14674 Mulligan 3 D 95039 1 TRTMT dev Complex 35306 vaklok 1 TRTMT dev simple 49592 Basic Néstor 79478 4 Special Dosimetry 90346 Spec Physics 42615 Port Films 50051 2 SRS Cranial/1FX 72462 SBR 5 FX or Less /ex: 5 = 5 fx 86301 IMRT Simple 30598 IMRT Complex 32580 IGRT 80069 Rad del com 6-10 44672 3000 10 Rad del com 11- 71202 Cont Med Physics 50053 2 Treatment Planning 14222 1 Rad del com 20 mev 66337 Rad del inter 6-10 28355 Rad del inter 11 59195 Rad del simple 6-10 53698 Rad del simple 11- 42855 Special Port Plan 44698 TRTMT dev inter 46531 Isodose Complex 05826 Isodose simple 19103 Resp Motion Mgmt Simulation 47573 Placement of Fiducial Markers 66919 Electronically Signed By: Tejinder Najera MD, DABR 10/19/2024 6:59 AM
--- NOTE | 2024-11-19 18:12 | CTCFLWUP_ITS ---
Patient: BRISEYDA WALSH : 1950 Page 6 of 8 FOLLOW UP NOTE DATE OF SERVICE: 10/19/2024 NAME: BRIESYDA WALSH ACCOUNT: [id number] : 1950 AGE: 74 INTERVAL HISTORY: Patient was seen at the last clinic and concern was her myeloma. Patient is here to discuss bone marrow biopsy results. PREVIOUS NOTE: Briseyda Walsh is a 74-year-old French-speaking male who had been having intermittent abdominal pain. On 04/26/2018 he had a CA 19?9 drawn which was 145. Upper limit of normal is less than 34. At last visit I had concern for causes of anemia and patient's myeloma workup was done. Patient is here to follow-up on results Patient was seen in the clinic 07/01/2018: CT scan of the chest abdomen and pelvis with IV contrast CA 19?9 trend: 04/26/2018: CA 19?9 is 145. 06/08/2018: CA 19?9 is 166. 09/28/2018: CA 19?9 is 183. 11/09/2018: CA 19?9 is 206. 03/03/2019: CA 19?9 is 189. 02/14/2020: CA 19?9 is 378. 03/29/2020: CA 19?9 is 210 09/30/2020: CA 19?9 is 212. 10/18/2018: CT scan of the chest abdomen and pelvis with IV contrast - 10/31/2018: MRI of the abdomen with contrast - 10/31/2018: Cholangiopancreatography MRI? 2019: Patient had EGD and colonoscopy done by Dr. Lozano. According to patient there were negative studies. 08/05/2019: MRI of the abdomen with contrast? 04/03/2020: MRI of the abdomen and pelvis with contrast?no interval metastatic disease in the pelvis. 03/28/2021: Creatinine 1.9, EGFR 49. 05/08/2022: CA 19- 9 is 190. 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 Zaldivar dermatology 09/03/2023: CA 19?9 is 270 03/13/2024: CA 19?9 is 161, hemoglobin 9.6, MCV 800, ANC 1.8, WBC 3.0, iron saturation 37%, ferritin 162, B12 is 870 folate is 16.96 04/24/2024: CEA 19?9 is 161, hemoglobin 10.3, MCV 99, ANC 2.0, WBC 3.1, iron saturation 37%, ferritin 180, B12 is 1,239 ONCOLOGY HISTORY:?[facility] On[facility] Hx? DIAGNOSIS: Malignant neoplasm of pancreas, unspecified [ICD10] C25.9 TREATMENT HISTORY: Care?Plan Start?Date Cycle Day Intent VRd?low?dex?he 11/06/2024 1 21 Palliative HISTORY OF PRESENT ILLNESS: OTHER MEDICAL HISTORY/CONDITIONS: HTN,?HIGH?CHOLESTEROL,?STROKE?2017 HERNIA?REPAIR?30YRS?AGO ?Clone Other Med Hx? FAMILY HISTORY: ?Clone Family Hx? SOCIAL HISTORY: Occupational?History:?RETIRED, LIVES WITH , SON Education?Level:?Completed something less than 8th grade Marital?Status:? Tobacco?Use?Years:?25 Tobacco?Use:?FORMER?SMOKER ETOH?Use:?DENIES Drug?Note:?DENIES ?Clone Social Hx? MEDICATIONS: 1. acyclovir - 400 mg 1 tab TWICE DAILY 2. allopurinol - 100 mg 1 tab Daily 3. Aspir-Low - 81 mg 1 tab Daily 4. atorvastatin - 40 mg 1 tab Daily 5. Compazine - 5 mg 5 mg Daily 6. dexAMETHasone - 20 mg 20 mg Daily 7. dexamethasone - 4 mg 5 tab Daily 8. doxazosin - 8 mg 1 tab Daily 9. ferrous sulfate - 325 mg (65 mg iron) 1 tab Daily 10. lisinopril - 2.5 mg 1 tab Daily 11. omeprazole magnesium - 20 mg 1 tab Daily 12. ondansetron - 8 mg 8 mg Daily 13. REVLIMID - 25 mg 1 Capsule Daily 14. Tylenol-Codeine #3 - 300-30 mg 1 tab Three times a day?[facility] Meds? Medications Last Reconciled by Nelida Bradshaw MA on 10/19/2024 ALLERGIES: No Known Drug Allergies REVIEW OF SYSTEMS: A complete 14-point review of systems was performed and is negative except as noted in interval history. PHYSICAL EXAMINATION:?CloneBlock PE? VITAL SIGNS: Temperature?99.2, B/P?129/73, Oxygen?Saturation?97% Weight?152.2?lbs (Change?since?10/13/24:?2.2?lbs) PAIN: 5 - Between moderate and severe pain EYE: Conjunctivae is pink. MOUTH: Oral cavity is dry. NECK: Supple, no adenopathy CHEST: Clear to auscultation. No wheezes or rales audible. CARDIAC: Rhythm regular, no murmurs or gallops present. ABDOMEN: Soft. No hepatomegaly. No splenomegaly. No areas of tenderness in the abdomen. EXTREMITIES: No pedal edema or cyanosis. LABORATORY DATA: I have personally reviewed and interpreted each of the patient?s relevant lab tests, abnormal findings are below: Date 11/16/24 11/17/24 ??WHITE?BLOOD?COUNT?(Thou/mm3) 1.9?L 1.7?L ??RED?BLOOD?COUNT?(Miln/mm3) 2.36?L 2.39?L ??HEMOGLOBIN?(gm/dl) 8.3?L 8.1?L ??HEMATOCRIT?(%) 23.7?L 23.7?L ??PLATELET?COUNT?(Thou/mm3) 129?L 111?L ??NEUTROPHILS?%,?AUTO?(%) 72 76 ??LYMPH?%,?AUTO?(%) 21 19 ??NEUTROPHILS,?AUTO?(Thou/mm3) 1.4?L 1.3?L ??GLUCOSE,RANDOM?(mg/dL) 130?H 123?H ??BLOOD?UREA?NITROGEN?(mg/dL) 25?H 27?H ??CREATININE?(mg/dL) 1.20 1.10 ??SODIUM?(mmol/L) 134?L 136 ??POTASSIUM?(mmol/L) 4.0 3.7 ??CHLORIDE?(mmol/L) 103 105 ??CrCl?(CandG)?(ml/min) 47.04 51.32 ??AST/SGOT?(Unit/L) 15 13 ??ALT/SGPT?(Unit/L) 20 18 ??ALKALINE?PHOSPHATASE?(Unit/L) 69 65 ??BILIRUBIN,?TOTAL?(mg/dL) 0.5 0.7 ??PROTEIN?TOTAL?(gm/dl) 8.8?H 8.5?H ??ALBUMIN,?SERUM?(gm/dl) 3.6 3.5 ??GLOBULIN?(gm/dl) 5.2?H 5.0?H ??ALBUMIN/GLOBULIN?RATIO 0.7?L 0.7?L ??CALCIUM,?SERUM?(mg/dL) 9.9 9.9 ??CALCIUM?SERUM?(CORRECTED)?(mg/dL) 10.2?H 10.3?H ASSESSMENT/PLAN:?Robert Hatch Assessment/Plan? #1 multiple myeloma Patient have elevated light chains Bone marrow biopsy shows more than 80% plasma cells X-ray showed lytic lesion Patient have multiple myeloma MRI showed lytic lesion Will refer to radiation oncology for radiation to the spine Will start on chemotherapy Patient also have crab criteria Will start on hydration and Zometa #2 anemia from multiple myeloma Reviewed patient's lab and do not indicate iron deficiency B12 and folic acid is normal Patient have multiple myeloma as per bone marrow biopsy results #3 elevated CA 19-9 I discussed with Mr. Walsh that he has been followed for elevated tumor marker for many years Tumor marker is now normal CA 19-9 can be elevated in benign conditions causing obstruction We do not need any further follow-up of this Patient should have routine screening RETURN TO CLINIC: Start chemo [facility]EV[facility] BILLING AND COMPLIANCE: I reviewed external records from providers outside my specialty as summarized above. I spent a total of 50 minutes on this patient?s care on the day of their visit excluding time spent related to any billed procedures. This time includes time spent with the patient as well as time spent documenting in the medical record, reviewing patients records and tests, obtaining history, placing orders, communicating with other healthcare professionals, counseling the patient, family or caregiver, and/or care coordination for the diagnoses above. Electronically Signed by: Rebel Hatch MD T: 6:10 PM CC: Ricki?Jillian,? PCP: Lex Atkins Referring: Lex Atkins This document was completed utilizing speech recognition software. Grammatical errors, random word insertions, pronoun errors, and incomplete sentences are an occasional consequence of this system due to software limitations, ambient noise, and hardware issues. Any formal questions or concerns about the content, text or information contained within the body of this dictation should be directly addressed to the provider for clarification.
== END 2024-10-30 23:59 | disposition home or self-care (01) ==
LOC: SCTC 09:15
PROVIDERS: PCP Family Medicine; Referring Provider Family Medicine; Visit Provider Internal Medicine Hematology & Oncology
DX: C90.00 Multiple myeloma not having achieved remission (principal); D63.8 Anemia in other chronic diseases classified elsewhere; Z71.2 Person consulting for explanation of examination or test findings; R97.8 Other abnormal tumor markers
CPT/HCPCS: 99213; G0463

== ENCOUNTER → 2024-10-26 | Outpatient (CLI) | payer MEDICARE, MEDICAID, SELFPAY ==
--- NOTE | 2024-10-26 10:15 | XR_ITS ---
Examination: MRI lumbar spine, without intravenous contrast. MRI lumbar spine , with intravenous contrast. Exam date and time: October 26, 2024 1130 hours Comparison bone survey September 11, 2024 INDICATIONS: Bone survey September 11, 2024 suspicious for bone destruction inferior margin L2, patient's diagnosis skin cancer, malignant neoplasm of the pancreas Technique: Multiple axial, sagittal and coronal images of the lumbar spine have been obtained with the Siemens high-resolution 1.5 Roya MRI scanner. Images obtained included T2 weighted fat suppressed sagittal sections, TR 3500, TE 46, T2 weighted coronal fat suppressed images, TR 3050, TE 84, T2-weighted transverse fat suppressed images, TR 30-60, TE 63, proton density transverse images, TR 4720, TE 46, and T1 weighted coronal images, TR 560, TE 13. Axial, sagittal and coronal images are obtained post intravenous injection 15 cc gadolinium. Findings: Adequate alignment lumbar vertebral bodies Mild compressions, chronic L3, L2 Adequate marrow signal lumbar vertebral bodies on the precontrast images Mild to moderate disc narrowing L5-S1 Diffuse lumbar disc desiccation L5-S1 4 mm central lumbar disc bulge contiguous with the right and left S1 nerve roots Postcontrast images do not demonstrate enhancement consistent with osteomyelitis or osseous metastatic disease No abnormal enhancing epidural tissue, no abnormal enhancement of the conus medullaris or cauda equina IMPRESSION: Negative for osteomyelitis discitis Negative for osseous metastatic disease L5-S1 4 mm central lumbar disc bulge contiguous with the right and left S1 nerve roots
== END | disposition home or self-care (01) ==
LOC: SMRI 09:52
PROVIDERS: PCP Family Medicine; Referring Provider Internal Medicine Hematology & Oncology; Visit Provider Internal Medicine Hematology & Oncology
DX: M51.379 Other intervertebral disc degeneration, lumbosacral region without mention of lumbar back pain or lower extremity pain (principal); C25.9 Malignant neoplasm of pancreas, unspecified
CPT/HCPCS: 72158; A9579

== ENCOUNTER → 2024-10-30 | Outpatient (CLI) | payer MEDICARE, SELFPAY ==
[2024-10-30 13:29] LABS: Basophils % (Auto) 0 % (0-2.5); Eosinophils % (Auto) 1 % (0-10); Hematocrit 26.4 % (41.0-53.0); Immature Granulocytes % (Auto) 0 % (0-0); Immature Granulocytes Auto 0.01 Thou/mm3 (0.00-0.00); Lymphocytes # (Auto) 0.8 Thou/mm3 (1.0-4.8); Lymphocytes % (Auto) 28 % (10-50); Mean Corpuscular HGB Conc 33.3 g/dl (31.0-37.0); Mean Corpuscular Hemoglobin 34.1 pg (25.0-35.0); Mean Corpuscular Volume 102 fL (80-100); Monocytes # (Auto) 0.2 Thou/mm3 (0.0-0.8); Monocytes % (Auto) 6 % (0-12); Neutrophils % (Auto) 65 % (37-80); Nucleated Red Blood Cell % 0 /100 WBC (0); Platelet Count 193 Thou/mm3 (140-440); RDW Standard Deviation 50.5 fL (35.1-43.9); Red Blood Count 2.58 Miln/mm3 (4.50-5.90)
[2024-10-30 13:39] LABS: Hemoglobin 8.8 g/dL (13.5-16.0)
[2024-10-30 13:49] LABS: Alanine Aminotransferase 19 U/L (10-49); Albumin, Serum 3.6 gm/dL (3.4-4.8); Albumin/Globulin Ratio 0.6 (1.2-2.2); Alkaline Phosphatase 76 U/L (46-116); Anion Gap 7 (7-16); Aspartate Amino Transferase 13 U/L (0-34); BUN/Creatinine Ratio 25 Ratio (12-20); Bilirubin,Total 0.5 mg/dL (0.3-1.2); Blood Urea Nitrogen 30 mg/dL (9-23); Calcium 9.9 mg/dL (8.3-10.6); Calcium (Corrected) 10.2 mg/dL (8.5-10.1); Carbon Dioxide 25.1 mMol/L (20.0-31.0); Chloride 103 mMol/L (98-107); Creatinine (Component) 1.2 mg/dL (0.6-1.3); Globulin 6.3 gm/dL (2.3-3.5); Glucose 105 mg/dL (74-106); Osmolality,Calculated 276 (275-295); Sodium 135 mMol/L (136-145); Total Protein 9.9 gm/dL (5.7-8.2); eGFR > 60 See Note
== END | disposition home or self-care (01) ==
LOC: COPL 11:57 → SCTO 12:01
PROVIDERS: PCP Internal Medicine Hematology & Oncology; Referring Provider Internal Medicine Hematology & Oncology; Visit Provider Internal Medicine Hematology & Oncology
DX: C25.9 Malignant neoplasm of pancreas, unspecified (principal); R77.9 Abnormality of plasma protein, unspecified; C90.00 Multiple myeloma not having achieved remission
CPT/HCPCS: 36415; 80053; 85025

== ENCOUNTER → 2024-10-31 | Outpatient (CLI) | payer MEDICARE, SELFPAY ==
--- NOTE | 2024-10-31 10:15 | XR_ITS ---
EXAMINATION: PET/CT FUSION SKULL TO THIGH EXAM DATE AND TIME: October 31, 2024 1055 hours Comparison MRI lumbar spine October 26, 2024, metastatic bone survey September 11, 2024, MRI abdomen 05/01/2024 INDICATIONS: Diagnosis multiple myeloma, pancreatic carcinoma CTDI:vol (mGy) 9.43 DLP: (mGycm) 843.73 PROCEDURE: 15 mCi FDG was administered intravenously To allow for distribution and uptake of radiotracer, the patient was allowed to rest quietly in a shielded room. Imaging was performed on an integrated 16-slice PET/CT scanner, with scanning from the skull base to the mid thigh. Serum blood glucose at the time of the injection was measured 114 mg/dL. CT scanning was performed without oral or intravenous contrast material. FINDINGS: Head and Neck: There is no sola hypermetabolism in the neck. The visualized portions of the brain are normal in appearance on CT. Chest: There is no sola hypermetabolism in the chest. There are no pulmonary nodules. Abdomen and Pelvis: There is no sola hypermetabolism in retroperitoneal or pelvic chains. The spleen is normal in size and FDG avidity. Musculoskeletal: All of the visualized osseous structures are hypermetabolic, cervical thoracic lumbar vertebral bodies, bones of the pelvis sacral segments and ribs CT examination shows subtle osteolytic lesions in both frontal bones axial image 17 each measuring 10 mm, right occipital bone 8 mm axial image 44, subtle osteolytic areas in bilateral ribs, 15 mm osteolytic lesion T9 axial image 141, most prominent hypermetabolic areas in the spine included L3 T12, T9 T7 and posterior bilateral iliac bones IMPRESSION: Widespread osteolytic and hypermetabolic osseous lesions as above consistent with the patient's diagnosis of multiple myeloma Hypermetabolic pancreatic mass is not depicted
== END | disposition home or self-care (01) ==
PROVIDERS: Referring Provider Internal Medicine Hematology & Oncology; Visit Provider Internal Medicine Hematology & Oncology
DX: C25.9 Malignant neoplasm of pancreas, unspecified (principal); C90.00 Multiple myeloma not having achieved remission; C79.9 Secondary malignant neoplasm of unspecified site
CPT/HCPCS: 78815; A9552

== ENCOUNTER → 2024-11-10 | Outpatient (CLI) | payer MEDICARE, SELFPAY ==
[2024-11-10 11:39] LABS: Basophils % (Auto) 0 % (0-2.5); Eosinophils % (Auto) 1 % (0-10); Hematocrit 25.3 % (41.0-53.0); Immature Granulocytes % (Auto) 0 % (0-0); Immature Granulocytes Auto 0.01 Thou/mm3 (0.00-0.00); Lymphocytes # (Auto) 0.8 Thou/mm3 (1.0-4.8); Lymphocytes % (Auto) 23 % (10-50); Mean Corpuscular Hemoglobin 34.1 pg (25.0-35.0); Mean Corpuscular Volume 100 fL (80-100); Monocytes # (Auto) 0.3 Thou/mm3 (0.0-0.8); Monocytes % (Auto) 8 % (0-12); Neutrophils # (Auto) 2.3 Thou/mm3 (1.8-7.7); Neutrophils % (Auto) 68 % (37-80); Nucleated Red Blood Cell % 0 /100 WBC (0); Platelet Count 174 Thou/mm3 (140-440); RDW Standard Deviation 50.9 fL (35.1-43.9); Red Blood Count 2.52 Miln/mm3 (4.50-5.90); White Blood Count 3.4 Thou/mm3 (3.8-10.6)
[2024-11-10 11:46] LABS: Alanine Aminotransferase 17 U/L (10-49); Albumin, Serum 3.5 gm/dL (3.4-4.8); Albumin/Globulin Ratio 0.6 (1.2-2.2); Alkaline Phosphatase 76 U/L (46-116); Anion Gap 3 (7-16); Aspartate Amino Transferase 12 U/L (0-34); BUN/Creatinine Ratio 22 Ratio (12-20); Bilirubin,Total 0.4 mg/dL (0.3-1.2); Blood Urea Nitrogen 26 mg/dL (9-23); Calcium 9.9 mg/dL (8.3-10.6); Calcium (Corrected) 10.3 mg/dL (8.5-10.1); Carbon Dioxide 27.7 mMol/L (20.0-31.0); Chloride 104 mMol/L (98-107); Creatinine (Component) 1.2 mg/dL (0.6-1.3); Glucose 113 mg/dL (74-106); Osmolality,Calculated 275 (275-295); Potassium 3.9 mMol/L (3.4-5.1); Sodium 135 mMol/L (136-145); Total Protein 9.5 gm/dL (5.7-8.2); eGFR > 60 See Note
[2024-11-10 11:49] LABS: Hemoglobin 8.6 g/dL (13.5-16.0)
== END | disposition home or self-care (01) ==
LOC: SCTO 10:29
PROVIDERS: PCP Family Medicine; Referring Provider Internal Medicine Hematology & Oncology; Visit Provider Internal Medicine Hematology & Oncology
DX: C25.9 Malignant neoplasm of pancreas, unspecified (principal); R77.9 Abnormality of plasma protein, unspecified; C90.00 Multiple myeloma not having achieved remission
CPT/HCPCS: 36415; 80053; 85025

== ENCOUNTER 2024-11-16 10:50 | Emergency (ER) | payer MEDICARE, SELFPAY ==
[2024-11-16 10:51] VITALS: BMI 26.6
[2024-11-16 10:57] VITALS: BP 96/52; PULSE 100; RESP 18; TEMP 36.9; O2SAT 99
--- NOTE | 2024-11-16 11:34 | XR_ITS ---
Examination: PA lateral chest 2 views TECHNIQUE: Upright PA lateral chest 2 views Exam date and time: November 16, 2024 1234 hours FINDINGS: Normal heart size No pneumonia or pulmonary edema Moderate thoracic spondylosis IMPRESSION: No active disease
--- NOTE | 2024-11-16 11:34 | EKG_ITS ---
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
--- NOTE | 2024-11-16 11:35 | PD.EDRME ---
Rapid Medical Screening Exam [facility] Arrival date/time: 11/16/24 10:50 Patient complaining of sore throat cough was sent here for evaluation due to hypotension in his doctor's office. Patient's blood pressure 80s over 60s here in emergency department. I have greeted and performed a focused initial assessment of this patient. Initial appropriate labs ordered at this time. A comprehensive ED assessment and evaluation of the patient and analysis of all test and completion of medical decision making process will be conducted by additional ED provider. Chief Complaint: Recheck/Abnormal Lab/Rx Time Seen by Provider: 11/16/24 11:05 Vital signs: Vital Signs Temperature 98.5 F 11/16/24 10:57 Pulse Rate 100 11/16/24 10:57 Respiratory Rate 18 11/16/24 10:57 Blood Pressure 96/52 L 11/16/24 10:57 Pulse Oximetry (%) 99 11/16/24 10:57 Oxygen Delivery Method Room Air 11/16/24 10:57
[2024-11-16 12:05] LABS: Basophils % (Auto) 0 % (0-2.5); Eosinophils % (Auto) 1 % (0-10); Hematocrit 23.7 % (41.0-53.0); Immature Granulocytes % (Auto) 1 % (0-0); Immature Granulocytes Auto 0.01 Thou/mm3 (0.00-0.00); Lymphocytes # (Auto) 0.4 Thou/mm3 (1.0-4.8); Lymphocytes % (Auto) 21 % (10-50); Mean Corpuscular Hemoglobin 35.2 pg (25.0-35.0); Mean Corpuscular Volume 100 fL (80-100); Monocytes # (Auto) 0.1 Thou/mm3 (0.0-0.8); Monocytes % (Auto) 6 % (0-12); Neutrophils # (Auto) 1.4 Thou/mm3 (1.8-7.7); Neutrophils % (Auto) 72 % (37-80); Nucleated Red Blood Cell % 0 /100 WBC (0); Platelet Count 129 Thou/mm3 (140-440); RDW Standard Deviation 51.9 fL (35.1-43.9); Red Blood Count 2.36 Miln/mm3 (4.50-5.90)
[2024-11-16 12:11] LABS: Hemoglobin 8.3 g/dL (13.5-16.0)
[2024-11-16 12:13] LABS: White Blood Count 1.9 Thou/mm3 (3.8-10.6)
[2024-11-16 12:15] LABS: Alanine Aminotransferase 20 U/L (10-49); Albumin, Serum 3.6 gm/dL (3.4-4.8); Albumin/Globulin Ratio 0.7 (1.2-2.2); Alkaline Phosphatase 69 U/L (46-116); Anion Gap 5 (7-16); Aspartate Amino Transferase 15 U/L (0-34); BUN/Creatinine Ratio 21 Ratio (12-20); Bilirubin,Total 0.5 mg/dL (0.3-1.2); Blood Urea Nitrogen 25 mg/dL (9-23); Calcium 9.9 mg/dL (8.3-10.6); Calcium (Corrected) 10.2 mg/dL (8.5-10.1); Carbon Dioxide 25.9 mMol/L (20.0-31.0); Chloride 103 mMol/L (98-107); Creatinine (Component) 1.2 mg/dL (0.6-1.3); Estimated Creatinine Clearance 47.3 mL/min (>60); Globulin 5.2 gm/dL (2.3-3.5); Glucose 130 mg/dL (74-106); Lipase 60 U/L (12-53); Magnesium 1.7 mg/dL (1.6-2.6); Osmolality,Calculated 274 (275-295); Sodium 134 mMol/L (136-145); Total Protein 8.8 gm/dL (5.7-8.2); Troponin I < 0.020 ng/mL (0.0-0.045); eGFR > 60 See Note
[2024-11-16 12:26] LABS: Strep A Rapid Negative (Negative)
[2024-11-16 12:38] LABS: Collection Type, Urine Clean Catch
[2024-11-16 12:50] LABS: Bacteria,Urine Rare; Bilirubin,Urine Negative (Negative); Blood,Urine Negative (Negative); Color,Urine Yellow (Lt Yel-Yel); Hyaline Casts,Urine 2 /hpf (0-1); Ketones,Urine Negative (Negative); Leukocyte Esterase,Urine Positive (Negative); Nitrite,Urine Negative (Negative); PH,Urine 5.5 (5.0-7.0); Protein,Urine 1+ (Neg - Trace); RBC,Urine 4 /hpf (0-3); Specific Gravity,Urine 1.024 (1.001-1.035); Squamous Epithelial Cell,Urine < 1 /hpf (0-5); Urobilinogen,Urine Negative mg/dL (0.0-1.0); WBC,Urine 7 /hpf (0-5)
[2024-11-16 13:02] LABS: Clarity,Urine Hazy (Clear/Hazy); Glucose, Urine Negative (Negative)
[2024-11-16 14:43] VITALS: BP 132/66; PULSE 88; RESP 18; TEMP 36.6; O2SAT 99
[2024-11-16] MEDS: SODIUM CHLORIDE 0.9% 1000 ML 1,000 ML 999 ML IV (15:36)
--- NOTE | 2024-11-16 15:36 | EDNOTE_ITS ---
ED General RME/HPI General Chief complaint: Recheck/Abnormal Lab/Rx Stated complaint: LOW BP AT PCP Time Seen by Provider: 11/16/24 11:05 Arrival date/time: 11/16/24 10:50 RME / HPI RME / HPI narrative: 11/16/24 10:50 Patient complaining of sore throat cough was sent here for evaluation due to hypotension in his doctor's office. Patient's blood pressure 80s over 60s here in emergency department. I have greeted and performed a focused initial assessment of this patient. Initial appropriate labs ordered at this time. A comprehensive ED assessment and evaluation of the patient and analysis of all test and completion of medical decision making process will be conducted by additional ED provider. DR. CALVILLO MAIN ED EVALUATION: 74 y/o male with Hx of Cerebrovascular Accident, Hypercholesterolemia, Hyp ertension, Ulcer, Inguinal Hernia, Benign Prostatic Hyperplasia and Degenerative Disk Disease (lower back), Pneumonia, [place] fever, [place] Hx of multiple myeloma presents to ED BIB daughter c/o cough, sore throat, tiredness, and back pain x 1 week. Patient also reports experiencing diarrhea x yesterday. Patient reports that cough is causing pain to his back and is requesting medication to manage the cough. Per daughter, patient was advised to present to ED during an appointment today due to his low blood pressure to be evaluated. Denies any shortness of breath with normal activity. Patient is currently undergoing chemotherapy and radiation treatment. Per daughter, patient began chemotherapy on 11/06/24 and has completed 2 sessions. Patient has also completed 6 of 10 radiation treatment sessions. Patient was due for his 7th session today, but will be seen tomorrow morning to continue treatment. Patient was also supposed to receive hydration today. Patient reports no appetite, but has continued to eat and tries to stay hydrated. No modifying factors. No other concerns or complaints expressed at this time. Related Data Home Medications ?Medication ?Instructions ?Recorded ?Confirmed aspirin 325 mg tablet,delayed 81 mg PO QDAY 10/10/21 0 10/04/24 release (Ecotrin) Held on 10/04/24. Instructions: Resume on 10/07/24. doxazosin 8 mg tablet 8 mg PO DAILY 10/10/2110/04 lisinopril 2.5 mg tablet (Zestril) 2.5 mg PO QDAY 09/3010/04/24 acetaminophen 300 mg-codeine 30 mg 1 tab PO Q6H PRN pa in 10/04/24 10/04/24 tablet aspirin 81 mg tablet,delayed 81 mg PO QDAY 10/04/24 release Held on 10/04/24. Instructions: Resume on 10/07/24. Previous Rx's ?Medication ?Instructions ?Recorded atorvastatin 20 mg tablet 40 mg (2 x 20 mg) PO HS #30 tabs 01/07/19 benzonatate 100 mg capsule 100 mg PO TID PRN cough #20 caps 11/16/24 Allergies Allergy/AdvReac Type Severity Reaction Status Date / Time No Known Allergies Allergy Verified 11/16/24 10:55 Review of Systems Review of Systems Systems Reviewed: All systems reviewed, normal except as documented Narrative Review of Systems: Gen: POSITIVE cough, No fever, no chills, no weight loss EYES: No discharge, no visual changes, no pain HEENT: POSITIVE sore throat, No ear pain, no congestion PULM: No shortness of breath, POSITIVE cough, no congestion CV: No chest pain, no dyspnea on exertion, no palpitations GI: POSITIVE diarrhea and no appetite, No nausea, no vomiting, no pain, no constipation : No frequency, no urgency, no dysuria Musc/skel: No joint pain, no back pain Skin: No rash Psyc: No hallucinations, no depression Heme/Lymph: No easy bleeding or bruising tendencies Neuro: No weakness, no headache Past Medical History Past Medical History NEUROLOGIC: Positive Neurological Disorders and Cerebrovascular Accident (5 yrs ago, affected balance. affected peripheral vision) CARDIAC: Positive Cardiac Disorders, Hypercholesterolemia (TAKES MED) and Hypertension (TAKES MED) GASTROINTESTINAL: Positive Gastrointestinal Disorders and Ulcer GENITOURINARY: Positive Genitourinary Disorders (kidney infection), Inguinal Hernia (LEFT HERNIA SURG) and Benign Prostatic Hyperplasia (TAKES MED) MUSCULOSKELETAL: Positive Musculoskeletal Disorders and Degenerative Disk Disease (lower back) ENT: Positive Cataracts (right) OTHER HISTORY: Positive Hospitalization (HOSP FOR CVA), Chicken Pox, Measles, Mumps and Cancer Family History FAMILY HISTORY: Positive Family Cardiac Disorders (MOTHER,FATHER (HEART)), Family Gastrointestinal Problems (BROTHER (PANCREAS)), Family Cancer (BROTHER (PANCREAS)) and Family Surgery (MOTHER,FATHER,BROTHER,SISTER) ED Exam Narrative Physical exam: GENERAL APPEARANCE: AxOx4, generally well-appearing, no acute distress. HEENT: NC, AT. MMM. EOMI, clear conjunctiva, oropharynx clear. NECK: Supple without lymphadenopathy. No stiffness or restricted ROM. HEART: Normal rate and regular rhythm, normal S1/S1, no m/r/g LUNGS: CTAB, moving air well. No crackles or wheezes are heard. ABDOMEN: Soft, nontender, nondistended with good bowel sounds heard. BACK: No midline C/T/L spine pain or deformity, No CVAT, no obvious deformity. EXTREMITIES: Without cyanosis, clubbing or edema. MUSCULOSKELETAL: FROM of all major joints, no chest tenderness NEUROLOGICAL: Grossly nonfocal. Alert and oriented, moving all 4 extremities. CN not formally tested but appear grossly intact. Observed to ambulate with normal gait. Skin: Warm and dry without any rash. Course Quality Measures none Orders Category Date Time Status Bedside Influenza A&B Antigen Test NOW Care 11/16/24 11:34 Completed EKG (ED ONLY) *Do not use* NOW Care 11/16/24 11:34 Completed NPO STAT Care 11/16/24 11:34 Completed EKG (ED Only) Stat Exams 11/16/24 11:34 Draft XR chest 2V Stat Exams 11/16/24 11:34 Completed CBC Stat Lab 11/16/24 11:40 Completed Comprehensive Metabolic Panel Stat Lab 11/16/24 11:40 Completed Lipase Stat Lab 11/16/24 11:40 Completed Magnesium Stat Lab 11/16/24 11:40 Completed Strep A Rapid Stat Lab 11/16/24 12:11 Completed Troponin I Stat Lab 11/16/24 11:40 Completed Urinalysis Stat Lab 11/16/24 12:25 Completed Sodium Chloride 0.9% 1000 ml [Ns] 1,000 ml Med 11/16/24 15:24 Discontinued IV 999 mls/hr Vital Signs Vital signs: Vital Signs Temperature 98.5 F 11/16/24 10:57 Pulse Rate 100 11/16/24 10:57 Respiratory Rate 18 11/16/24 10:57 Blood Pressure 96/52 L 11/16/24 10:57 Pulse Oximetry (%) 99 11/16/24 10:57 Oxygen Delivery Method Room Air 11/16/24 10:57 Procedures -ED EKG Interpretation #1: Date of EK11/16/24 Time of EK:48 Rate: 92 Interpretation: Interpreted by me Additional EKG comment: Normal sinus rhythm, HR 92 , normal axis, normal interval, no acute ST or T-wave changes, no STEMI. Critical Care Time Critical Care Time Critical Care Time: No Discharge Plan Plan Patient Disposition: HOME (Self Care) Prescriptions/Referrals Prescriptions/Med Rec: New benzonatate 100 mg capsule 100 mg PO TID PRN (Reason: cough) Qty: 20 0RF No Action atorvastatin 20 mg Tablet 40 mg PO HS Qty: 30 0RF doxazosin 8 mg tablet 8 mg PO DAILY aspirin [Ecotrin] 325 mg Tablet,Delayed Release (Dr/Ec) 81 mg PO QDAY lisinopril [Zestril] 2.5 mg Tablet 2.5 mg PO QDAY acetaminophen-codeine 300-30 mg tablet 1 tab PO Q6H PRN (Reason: pain) aspirin 81 mg tablet,delayed release (DR/EC) 81 mg PO QDAY Referrals: Lex Atkins MD [Primary Care Provider] - In 1 week Problem List Clinical Impression: Acute dehydration, Immunodeficiency secondary to chemotherapy Patient/Caregiver Discharge Instructions Education Materials: ED Dehydration (Adult) Additional Instructions: You are OK for radiation tomorrow. Consider referral to a ecdis n navigation operator. You can return to the emergency department sooner if symptoms worsen or for any new or concerning issues. Print Language: Mexican Stand Alone Forms: Holly Award Info., Patient Portal Info Letter MDM Patient Acuity Narrative: Scribe Attestation: Scarlet Smith am scribing for and in the presence of Dr. Calvillo. Provider Notation: Although this document has been carefully reviewed, there may still be some phonetic and other typographical errors. These errors are purely grammatical due to imperfections in the software program and should not be construed in any way to compromise the substance of the patient's medical care during this visit. Clinical Information Provided by: patient and family (daughter) Medical Records reviewed [facility] (Reviewed prior ED visit notes from 07/20/24. Patient was seen and discharged for Lumbar radiculopathy.) Meds/Rx considered, not ordered None Labs/Rad/Tests considered, not ordered None Chronic Illness/Social Conditions which may negatively complicate care or outcome(s)-explain: Cancer Explain: Cerebrovascular Accident, Hypercholesterolemia, Hypertension, Ulcer, Inguinal Hernia, Benign Prostatic Hyperplasia and Degenerative Disk Disease (lower back) EKG EKG Interpretation(s): see interpretation under the procedures tab. Labs Labs: Interpreted by me Lab(s) Interpretation(s): Refer to MDM narrative. Imaging Imaging interpretation: Interpreted by me and other (Radiologist) Imaging Interpretation(s): RADIOLOGY? Patient: BRISEYDA WALSH. Record#: [id number] Birthdate: 1950 Age/Sex: 74 / M Location: [facility] Attending Dr: Ordering Physician: Joe [facility])Michelle Date of Service: 11/16/24 Procedure(s): XR chest 2V Accession Number(s): [id number] cc: Lex Atkins MD; Tino Leal MD; Joe [facility])Michelle~ Examination: PA lateral chest 2 views TECHNIQUE: Upright PA lateral chest 2 views Exam date and time: November 16, 2024 1234 hours FINDINGS: Normal heart size No pneumonia or pulmonary edema Moderate thoracic spondylosis IMPRESSION: No active disease Dictated By: Tino Leal MD Signed By: Electronically signed by Tino Leal MD in [place] 11/16/24 1305 Medication Administration(s) Medication Administration History Discontinued Medications Sodium Chloride (Ns) 1,000 mls @ 999 mls/hr IV .Q1H1M ONE Stop: 11/16/24 16:24 Last Infusion: 11/16/24 16:59 Dose: Infused Documented By: Admin: 11/16/24 15:36 Dose: 999 mls/hr Documented By: TM See above if any. Diagnosis Differential Diagnosis ED Complaint MDM: Influenza A vs Influenza B vs Anorexia
[2024-11-16 16:00] VITALS: BP 145/71; PULSE 91; RESP 18; TEMP 36.8; O2SAT 100
[2024-11-16 17:13] VITALS: BP 120/92; PULSE 84; RESP 18; TEMP 37; O2SAT 97
== END 2024-11-16 17:14 | disposition home or self-care (01) ==
PROVIDERS: Nurse Practitioner Primary Care; Emergency Provider Emergency Medicine; PCP Family Medicine
DX: E86.0 Dehydration (principal); D84.821 Immunodeficiency due to drugs; E78.00 Pure hypercholesterolemia, unspecified; I10 Essential (primary) hypertension
CPT/HCPCS: 36415; 71046; 80053; 81001; 83690; 83735; 84484; 85025; 87400; 87651; 93005; 96360; 99284; J7030

== ENCOUNTER → 2024-11-17 | Outpatient (CLI) | payer MEDICARE, SELFPAY ==
[2024-11-17 12:30] LABS: Basophils % (Auto) 0 % (0-2.5); Eosinophils % (Auto) 1 % (0-10); Hematocrit 23.7 % (41.0-53.0); Immature Granulocytes % (Auto) 0 % (0-0); Lymphocytes # (Auto) 0.3 Thou/mm3 (1.0-4.8); Lymphocytes % (Auto) 19 % (10-50); Mean Corpuscular HGB Conc 34.2 g/dl (31.0-37.0); Mean Corpuscular Hemoglobin 33.9 pg (25.0-35.0); Mean Corpuscular Volume 99 fL (80-100); Monocytes # (Auto) 0.1 Thou/mm3 (0.0-0.8); Monocytes % (Auto) 5 % (0-12); Neutrophils # (Auto) 1.3 Thou/mm3 (1.8-7.7); Neutrophils % (Auto) 76 % (37-80); Nucleated Red Blood Cell % 0 /100 WBC (0); Platelet Count 111 Thou/mm3 (140-440); RDW Standard Deviation 49.6 fL (35.1-43.9); Red Blood Count 2.39 Miln/mm3 (4.50-5.90)
[2024-11-17 12:39] LABS: Hemoglobin 8.1 g/dL (13.5-16.0); White Blood Count 1.7 Thou/mm3 (3.8-10.6)
[2024-11-17 12:45] LABS: Prostate Specific Antigen 1.06 ng/mL (0-4.00)
[2024-11-17 12:46] LABS: Alanine Aminotransferase 18 U/L (10-49); Albumin, Serum 3.5 gm/dL (3.4-4.8); Albumin/Globulin Ratio 0.7 (1.2-2.2); Alkaline Phosphatase 65 U/L (46-116); Anion Gap 5 (7-16); Aspartate Amino Transferase 13 U/L (0-34); BUN/Creatinine Ratio 25 Ratio (12-20); Bilirubin,Total 0.7 mg/dL (0.3-1.2); Blood Urea Nitrogen 27 mg/dL (9-23); Calcium 9.9 mg/dL (8.3-10.6); Calcium (Corrected) 10.3 mg/dL (8.5-10.1); Chloride 105 mMol/L (98-107); Creatinine (Component) 1.1 mg/dL (0.6-1.3); Glucose 123 mg/dL (74-106); Osmolality,Calculated 278 (275-295); Potassium 3.7 mMol/L (3.4-5.1); Sodium 136 mMol/L (136-145); Total Protein 8.5 gm/dL (5.7-8.2); eGFR > 60 See Note
== END | disposition home or self-care (01) ==
LOC: COPL 10:58
PROVIDERS: PCP Family Medicine; Referring Provider Internal Medicine Hematology & Oncology; Visit Provider Internal Medicine Hematology & Oncology
DX: C25.9 Malignant neoplasm of pancreas, unspecified (principal); R79.9 Abnormal finding of blood chemistry, unspecified; C90.00 Multiple myeloma not having achieved remission
CPT/HCPCS: 36415; 80053; 82105; 84153; 85025

== ENCOUNTER → 2024-11-24 | Outpatient (CLI) | payer MEDICARE, SELFPAY ==
[2024-11-24 09:39] LABS: Basophils % (Auto) 0 % (0-2.5); Eosinophils % (Auto) 2 % (0-10); Hematocrit 21.7 % (41.0-53.0); Immature Granulocytes % (Auto) 1 % (0-0); Immature Granulocytes Auto 0.01 Thou/mm3 (0.00-0.00); Lymphocytes # (Auto) 0.3 Thou/mm3 (1.0-4.8); Lymphocytes % (Auto) 19 % (10-50); Mean Corpuscular Hemoglobin 34.9 pg (25.0-35.0); Mean Corpuscular Volume 100 fL (80-100); Monocytes # (Auto) 0.1 Thou/mm3 (0.0-0.8); Monocytes % (Auto) 7 % (0-12); Neutrophils # (Auto) 1.2 Thou/mm3 (1.8-7.7); Neutrophils % (Auto) 71 % (37-80); Nucleated Red Blood Cell % 0 /100 WBC (0); RDW Standard Deviation 51.6 fL (35.1-43.9); Red Blood Count 2.18 Miln/mm3 (4.50-5.90)
[2024-11-24 10:06] LABS: Hemoglobin 7.6 g/dL (13.5-16.0); Platelet Count 77 Thou/mm3 (140-440); White Blood Count 1.7 Thou/mm3 (3.8-10.6)
[2024-11-24 10:11] LABS: Alanine Aminotransferase 19 U/L (10-49); Albumin, Serum 3.8 gm/dL (3.4-4.8); Alkaline Phosphatase 59 U/L (46-116); Anion Gap 6 (7-16); Aspartate Amino Transferase 14 U/L (0-34); BUN/Creatinine Ratio 25 Ratio (12-20); Bilirubin,Total 0.4 mg/dL (0.3-1.2); Blood Urea Nitrogen 28 mg/dL (9-23); Calcium 9.5 mg/dL (8.3-10.6); Calcium (Corrected) 9.7 mg/dL (8.5-10.1); Carbon Dioxide 24.9 mMol/L (20.0-31.0); Chloride 104 mMol/L (98-107); Creatinine (Component) 1.1 mg/dL (0.6-1.3); Globulin 3.9 gm/dL (2.3-3.5); Glucose 127 mg/dL (74-106); Osmolality,Calculated 277 (275-295); Sodium 135 mMol/L (136-145); Total Protein 7.7 gm/dL (5.7-8.2); eGFR > 60 See Note
[2024-11-24 12:24] LABS: Slide Review Platelets confirmed
== END | disposition home or self-care (01) ==
LOC: COPL 09:08 → SCTO 10:25
PROVIDERS: PCP Family Medicine; Referring Provider Internal Medicine Hematology & Oncology; Visit Provider Internal Medicine Hematology & Oncology
DX: C25.9 Malignant neoplasm of pancreas, unspecified (principal); C90.00 Multiple myeloma not having achieved remission; R77.9 Abnormality of plasma protein, unspecified
CPT/HCPCS: 36415; 80053; 85025

== ENCOUNTER 2024-11-29 14:54 | Outpatient (RCR) | payer MEDICARE, MEDICAID, SELFPAY ==
--- NOTE | 2024-11-02 15:12 | CTCFLWUP_ITS ---
[facility] [address] [place], [place] [address] FOLLOW-UP NOTE Date: 11/02/2024 MR#: [id number] Name: BRISEYDA WALSH : 1950 Dx: C90.00 Multiple myeloma not in remission Patient is back after completing the MRI as well as PET scan The MRI 10/26/2024 was reread demonstrating abnormal enhancement L2-L3 consistent with involvement of patient's multiple myeloma. PET scan shows widespread osteolytic and hypermetabolic osseous lesions consistent with diagnosed multi myeloma with involvement of L3 T12 T9 T7 and posterior bilateral iliac bones. Bone survey 09/11/2024 suspicious for osteolytic lesions in L2 as well as pelvic regions. Spoke to patient who is on T #3 states that his pain is at a 10 in lumbar area. Patient is scheduled for Velcade Revlimid Decadron to be initiated next week. Spoke to Dr. Hatch about local radiation therapy L2-L3 area due to significant bone involvement consistent with MRI bone survey and PET scan findings along with severe pain. Will try to limit Field size to not cause myelosuppression or GI symptoms. To interfere with chemo and possible eventual stem cell transplant. Side effects explained. Treatments will be 10 fractions to be completed before end october. Electronically signed by: Tejinder Najera M.D. 11/02/2024 3:10 PM
--- NOTE | 2024-11-02 15:24 | CTCSNOTE_ITS ---
[facility] [address] [place], [place] [address] CT Simulation Note Date: 11/02/2024 MR# [id number] Name: BRISEYDA WALSH : 1950 (A) DIAGNOSIS: C25.9 Malignant neoplasm of pancreas, unspecified (B) Patient was placed in supine position and used Vac-Molly for immobilization purposes. (C) CT slices included L-spine (D) 3D Will be needed for maximum sparing of adjacent normal critical structures. (E) Patient tolerated the simulation well and left the room in good condition. Electronically signed by: Tejinder Najera MD, LEONARDR 11/02/2024 3:22 PM
[2024-11-03 09:21] LABS: Basophils % (Auto) 0 % (0-2.5); Eosinophils % (Auto) 0 % (0-10); Hematocrit 23.4 % (41.0-53.0); Immature Granulocytes % (Auto) 1 % (0-0); Immature Granulocytes Auto 0.02 Thou/mm3 (0.00-0.00); Lymphocytes # (Auto) 0.5 Thou/mm3 (1.0-4.8); Lymphocytes % (Auto) 15 % (10-50); Mean Corpuscular HGB Conc 34.6 g/dl (31.0-37.0); Mean Corpuscular Volume 98 fL (80-100); Monocytes # (Auto) 0.2 Thou/mm3 (0.0-0.8); Monocytes % (Auto) 6 % (0-12); Neutrophils # (Auto) 2.8 Thou/mm3 (1.8-7.7); Neutrophils % (Auto) 78 % (37-80); Nucleated Red Blood Cell % 0 /100 WBC (0); Platelet Count 173 Thou/mm3 (140-440); RDW Standard Deviation 48.2 fL (35.1-43.9); Red Blood Count 2.38 Miln/mm3 (4.50-5.90); White Blood Count 3.6 Thou/mm3 (3.8-10.6)
[2024-11-03 09:37] LABS: Alanine Aminotransferase 22 U/L (10-49); Albumin, Serum 3.9 gm/dL (3.4-4.8); Albumin/Globulin Ratio 0.6 (1.2-2.2); Alkaline Phosphatase 80 U/L (46-116); Anion Gap 8 (7-16); Aspartate Amino Transferase 21 U/L (0-34); BUN/Creatinine Ratio 28 Ratio (12-20); Bilirubin,Total 0.5 mg/dL (0.3-1.2); Blood Urea Nitrogen 33 mg/dL (9-23); Calcium 10.7 mg/dL (8.3-10.6); Calcium (Corrected) 10.8 mg/dL (8.5-10.1); Carbon Dioxide 23.3 mMol/L (20.0-31.0); Chloride 104 mMol/L (98-107); Creatinine (Component) 1.2 mg/dL (0.6-1.3); Globulin 6.6 gm/dL (2.3-3.5); Glucose 130 mg/dL (74-106); Osmolality,Calculated 279 (275-295); Potassium 4.4 mMol/L (3.4-5.1); Sodium 135 mMol/L (136-145); Total Protein 10.5 gm/dL (5.7-8.2); eGFR > 60 See Note
[2024-11-03 09:46] LABS: Hemoglobin 8.1 g/dL (13.5-16.0)
[2024-11-08 13:50] LABS: Kappa Light Chain, Free 1255.7 mg/L (3.3-19.4); Lambda Light Chain, Free 6.1 mg/L (5.7-26.3)
[2024-11-08 23:35] LABS: Abnormal protein band 1 4.3 g/dL (NONE DETECTED); Alpha-1-Globulin 0.3 g/dL (0.2-0.3); Alpha-2-Globulin 0.8 g/dL (0.5-0.9); Beta-1-Globulin 0.4 g/dL (0.4-0.6); Beta-2-globulin 0.2 g/dL (0.2-0.5); Gamma Globulin 4.5 g/dL (0.8-1.7)
[2024-11-09 06:46] LABS: Beta 2 Microglobulin 6.18 mg/L (< OR = 2.51); Kappa/Lambda, Free Ratio 205.85 (0.26-1.65); Protein, total, serum 10.2 g/dL (6.1-8.1)
[2024-11-24 17:51] LABS: Abnormal protein band 1 2.8 g/dL (NONE DETECTED); Albumin 3.4 g/dL (3.8-4.8); Alpha-1-Globulin 0.3 g/dL (0.2-0.3); Alpha-2-Globulin 0.8 g/dL (0.5-0.9); Beta-1-Globulin 0.3 g/dL (0.4-0.6); Beta-2-globulin 0.2 g/dL (0.2-0.5)
[2024-11-27 06:43] LABS: Protein, total, serum 7.9 g/dL (6.1-8.1)
[2024-11-27 11:22] LABS: Immunoglobulin G 3806 mg/dL (600-1540); Lambda Light Chain, Free 9.9 mg/L (5.7-26.3)
[2024-11-27 16:07] LABS: Basophils % (Auto) 0 % (0-2.5); Eosinophils % (Auto) 1 % (0-10); Hematocrit 22.5 % (41.0-53.0); Immature Granulocytes % (Auto) 0 % (0-0); Lymphocytes # (Auto) 0.3 Thou/mm3 (1.0-4.8); Lymphocytes % (Auto) 15 % (10-50); Mean Corpuscular HGB Conc 34.7 g/dl (31.0-37.0); Mean Corpuscular Hemoglobin 34.7 pg (25.0-35.0); Mean Corpuscular Volume 100 fL (80-100); Monocytes # (Auto) 0.3 Thou/mm3 (0.0-0.8); Monocytes % (Auto) 12 % (0-12); Neutrophils # (Auto) 1.6 Thou/mm3 (1.8-7.7); Neutrophils % (Auto) 72 % (37-80); Nucleated Red Blood Cell % 0 /100 WBC (0); RDW Standard Deviation 50.4 fL (35.1-43.9); Red Blood Count 2.25 Miln/mm3 (4.50-5.90)
[2024-11-27 16:14] LABS: Hemoglobin 7.8 g/dL (13.5-16.0); White Blood Count 2.2 Thou/mm3 (3.8-10.6)
[2024-11-27 16:15] LABS: Platelet Count 79 Thou/mm3 (140-440)
[2024-11-27 17:28] LABS: Slide Review Platelets confirmed
[2024-11-28 06:20] LABS: Beta 2 Microglobulin 4.89 mg/L (< OR = 2.51); Immunoglobulin A 16 mg/dL (70-320); Immunoglobulin M 36 mg/dL (50-300); Kappa/Lambda, Free Ratio 120.61 (0.26-1.65)
== END 2024-11-29 23:59 | disposition home or self-care (01) ==
LOC: SCTC 14:54
PROVIDERS: Internal Medicine Hematology & Oncology; PCP Family Medicine; Referring Provider Family Medicine; Visit Provider Radiology Therapeutic Radiology
DX: Z51.0 Encounter for antineoplastic radiation therapy (principal); Z51.11 Encounter for antineoplastic chemotherapy; C90.00 Multiple myeloma not having achieved remission; D63.0 Anemia in neoplastic disease; Z85.828 Personal history of other malignant neoplasm of skin
CPT/HCPCS: 36415; 36430; 77014; 77280; 77290; 77295; 77300; 77334; 77336; 77412; 80053; 82232; 82784; 83521; 84155; 84165; 85025; 86334; 86850; 86900; 86901; 86923; 96360; 96361; 96367; 96401; 96409; 99212; A4216; J1100; J2405; J7040; J7050; J9041; P9016; G0463

== ENCOUNTER → 2024-12-01 | Outpatient (CLI) | payer MEDICARE, SELFPAY ==
[2024-12-01 14:48] LABS: Basophils % (Auto) 0 % (0-2.5); Eosinophils % (Auto) 4 % (0-10); Hematocrit 25.4 % (41.0-53.0); Hemoglobin 8.9 g/dL (13.5-16.0); Immature Granulocytes % (Auto) 1 % (0-0); Immature Granulocytes Auto 0.01 Thou/mm3 (0.00-0.00); Lymphocytes # (Auto) 0.3 Thou/mm3 (1.0-4.8); Lymphocytes % (Auto) 23 % (10-50); Mean Corpuscular Hemoglobin 34.1 pg (25.0-35.0); Mean Corpuscular Volume 97 fL (80-100); Monocytes # (Auto) 0.1 Thou/mm3 (0.0-0.8); Monocytes % (Auto) 11 % (0-12); Neutrophils # (Auto) 0.7 Thou/mm3 (1.8-7.7); Neutrophils % (Auto) 62 % (37-80); Nucleated Red Blood Cell % 0 /100 WBC (0); RDW Standard Deviation 52.7 fL (35.1-43.9); Red Blood Count 2.61 Miln/mm3 (4.50-5.90)
[2024-12-01 14:54] LABS: Platelet Count 40 Thou/mm3 (140-440); White Blood Count 1.1 Thou/mm3 (3.8-10.6)
[2024-12-01 14:58] LABS: Alanine Aminotransferase 16 U/L (10-49); Albumin, Serum 3.8 gm/dL (3.4-4.8); Albumin/Globulin Ratio 1.2 (1.2-2.2); Alkaline Phosphatase 89 U/L (46-116); Anion Gap 7 (7-16); Aspartate Amino Transferase 11 U/L (0-34); BUN/Creatinine Ratio 21 Ratio (12-20); Bilirubin,Total 0.4 mg/dL (0.3-1.2); Blood Urea Nitrogen 25 mg/dL (9-23); Calcium 8.1 mg/dL (8.3-10.6); Calcium (Corrected) 8.3 mg/dL (8.5-10.1); Carbon Dioxide 28.1 mMol/L (20.0-31.0); Chloride 101 mMol/L (98-107); Creatinine (Component) 1.2 mg/dL (0.6-1.3); Globulin 3.2 gm/dL (2.3-3.5); Glucose 155 mg/dL (74-106); Osmolality,Calculated 279 (275-295); Potassium 4.3 mMol/L (3.4-5.1); Sodium 136 mMol/L (136-145); eGFR > 60 See Note
[2024-12-01 15:22] LABS: Slide Review Platelets confirmed
== END | disposition home or self-care (01) ==
LOC: COPL 14:02
PROVIDERS: PCP Family Medicine; Referring Provider Internal Medicine Hematology & Oncology; Visit Provider Internal Medicine Hematology & Oncology
DX: C25.9 Malignant neoplasm of pancreas, unspecified (principal); C90.00 Multiple myeloma not having achieved remission; R79.9 Abnormal finding of blood chemistry, unspecified
CPT/HCPCS: 36415; 80053; 85025

== ENCOUNTER → 2024-12-15 | Outpatient (CLI) | payer MEDICARE, SELFPAY ==
[2024-12-15 16:12] LABS: Basophils % (Auto) 1 % (0-2.5); Eosinophils # (Auto) 0.1 Thou/mm3 (0.0-0.5); Eosinophils % (Auto) 3 % (0-10); Hematocrit 27.6 % (41.0-53.0); Hemoglobin 9.1 g/dL (13.5-16.0); Immature Granulocytes % (Auto) 1 % (0-0); Immature Granulocytes Auto 0.02 Thou/mm3 (0.00-0.00); Lymphocytes # (Auto) 0.3 Thou/mm3 (1.0-4.8); Lymphocytes % (Auto) 16 % (10-50); Mean Corpuscular Hemoglobin 33.2 pg (25.0-35.0); Mean Corpuscular Volume 101 fL (80-100); Monocytes # (Auto) 0.2 Thou/mm3 (0.0-0.8); Monocytes % (Auto) 11 % (0-12); Neutrophils # (Auto) 1.5 Thou/mm3 (1.8-7.7); Neutrophils % (Auto) 69 % (37-80); Nucleated Red Blood Cell % 0 /100 WBC (0); Platelet Count 194 Thou/mm3 (140-440); RDW Standard Deviation 62.7 fL (35.1-43.9); Red Blood Count 2.74 Miln/mm3 (4.50-5.90)
[2024-12-15 16:21] LABS: White Blood Count 2.1 Thou/mm3 (3.8-10.6)
[2024-12-15 16:24] LABS: Alanine Aminotransferase 16 U/L (10-49); Albumin, Serum 3.7 gm/dL (3.4-4.8); Albumin/Globulin Ratio 1.6 (1.2-2.2); Alkaline Phosphatase 117 U/L (46-116); Anion Gap 10 (7-16); Aspartate Amino Transferase 10 U/L (0-34); BUN/Creatinine Ratio 16 Ratio (12-20); Bilirubin,Total 0.3 mg/dL (0.3-1.2); Blood Urea Nitrogen 19 mg/dL (9-23); Calcium 8.3 mg/dL (8.3-10.6); Calcium (Corrected) 8.5 mg/dL (8.5-10.1); Chloride 108 mMol/L (98-107); Creatinine (Component) 1.2 mg/dL (0.6-1.3); Globulin 2.3 gm/dL (2.3-3.5); Glucose 104 mg/dL (74-106); Osmolality,Calculated 289 (275-295); Potassium 4.1 mMol/L (3.4-5.1); Sodium 144 mMol/L (136-145); eGFR > 60 See Note
== END | disposition home or self-care (01) ==
LOC: SCTO 15:09
PROVIDERS: PCP Family Medicine; Referring Provider Internal Medicine Hematology & Oncology; Visit Provider Internal Medicine Hematology & Oncology
DX: C25.9 Malignant neoplasm of pancreas, unspecified (principal); R79.9 Abnormal finding of blood chemistry, unspecified; C90.00 Multiple myeloma not having achieved remission
CPT/HCPCS: 36415; 80053; 85025

== ENCOUNTER → 2024-12-22 | Outpatient (CLI) | payer MEDICARE, SELFPAY ==
[2024-12-29 15:32] LABS: Abnormal protein band 1 0.7 g/dL (NONE DETECTED); Albumin 3.4 g/dL (3.8-4.8); Alpha-1-Globulin 0.3 g/dL (0.2-0.3); Alpha-2-Globulin 0.8 g/dL (0.5-0.9); Beta-1-Globulin 0.3 g/dL (0.4-0.6); Beta-2-globulin 0.2 g/dL (0.2-0.5); Gamma Globulin 0.9 g/dL (0.8-1.7); Immunoglobulin G 1060 mg/dL (600-1540); Kappa Light Chain, Free 36.7 mg/L (3.3-19.4); Lambda Light Chain, Free 8.7 mg/L (5.7-26.3)
[2025-01-01 07:25] LABS: Immunoglobulin A 6 mg/dL (70-320); Immunoglobulin M 28 mg/dL (50-300); Kappa/Lambda, Free Ratio 4.22 (0.26-1.65); Protein, total, serum 5.9 g/dL (6.1-8.1)
== END | disposition home or self-care (01) ==
LOC: SCTO 17:01
PROVIDERS: PCP Family Medicine; Referring Provider Internal Medicine Hematology & Oncology; Visit Provider Internal Medicine Hematology & Oncology
DX: C25.9 Malignant neoplasm of pancreas, unspecified (principal); R77.9 Abnormality of plasma protein, unspecified; C90.00 Multiple myeloma not having achieved remission
CPT/HCPCS: 36415; 82784; 83521; 84155; 84165; 86334

== ENCOUNTER 2024-12-26 11:00 | Outpatient (RCR) | payer MEDICARE, SELFPAY ==
--- NOTE | 2024-12-04 06:05 | CTCFLWUP_ITS ---
Patient: BRISEYDA WALSH : 1950 Page 7 of 8 FOLLOW UP NOTE DATE OF SERVICE: 11/30/2024 NAME: BRISEYDA WALSH ACCOUNT: [id number] : 1950 AGE: 74 INTERVAL HISTORY: Amrik, a male with multiple myeloma, presented for treatment follow-up. His history includes skin cancer, borderline anemia, and reduced kidney function. After one cycle of Velcade, Revlimid 25mg, and dexamethasone 20mg, his [place] Lambda chains decreased from 1255 to 1190, with improved symptoms despite persistent anemia (Hgb Chief Complaint Follow-up for multiple myeloma treatment, monitoring of cancer markers, evaluation of skin lesions History of Present Illness Mr. Walsh, a patient with multiple myeloma, presents for follow-up of his ongoing cancer treatment. He reports feeling much better since his last visit. The patient's [place] Lambda chain levels have decreased from 1255 to 1190 after one cycle of treatment, indicating a modest improvement in his condition. He is currently on a regimen of Velcade, Revlimid (full dose of 25), and a low dose of steroids to avoid dementia-like symptoms. The patient's overall health status has improved since starting treatment. He reports feeling better in the last few days, with improved color and reduced anemia symptoms. His mood and energy levels have also improved, as he is now more active and engaged. The patient had been experiencing pain and discomfort, which have since eased with the initiation of pain medication. He no longer reports significant numbness and tingling, which were present before starting treatment. Mr. Walsh's functioning has improved, though he is not currently driving, and his is providing care. His cognitive function appears intact, with no reported brain fog and good conversations. The patient expresses willingness to continue with the prescribed treatment plan, stating he will do whatever you tell him to do. The patient has a history of skin cancer and currently has new spots of concern, including one where he previously had skin cancer and another black spot on his arm. He is scheduled to see a driver salesman for evaluation and possible biopsy of these areas. Medical History - Multiple myeloma - Skin cancer (1-2 years ago) - Borderline anemia for 6 years - Kidney function not 100% Surgical History - Skin cancer removal 1-2 years ago, location not specified Medications and Supplements - Revlimid 25 mg - Velcade - Low dose to avoid neuropathy - Dexamethasone 20 mg - Aspirin (baby aspirin) - To prevent blood clots associated with Revlimid - Calcium - Vitamin D Social History - Living Situation: Patient is cared for by his - Occupation: Not currently driving - Exercise: Advised to walk - Diet: Encouraged to eat and take calcium and vitamin D supplements - Stress/Coping: Experiencing mood changes and emotional fluctuations due to treatment - Social Support: provides care and support Review of Systems General: Positive for weight loss, improved mood. Skin: Positive for new skin lesions. Neurological: Positive for history of numbness and tingling. Psychiatric: Positive for improved mood, history of emotional changes. Musculoskeletal: Negative for bone pain. PREVIOUS NOTE: Briseyda Walsh is a 74-year-old Turkish-speaking male who had been having intermittent abdominal pain. On 04/26/2018 he had a CA 19?9 drawn which was 145. Upper limit of normal is less than 34. At last visit I had concern for causes of anemia and patient's myeloma workup was done. Patient is here to follow-up on results Patient was seen in the clinic 07/01/2018: CT scan of the chest abdomen and pelvis with IV contrast CA 19?9 trend: 04/26/2018: CA 19?9 is 145. 06/08/2018: CA 19?9 is 166. 09/28/2018: CA 19?9 is 183. 11/09/2018: CA 19?9 is 206. 03/03/2019: CA 19?9 is 189. 02/14/2020: CA 19?9 is 378. 03/29/2020: CA 19?9 is 210 09/30/2020: CA 19?9 is 212. 10/18/2018: CT scan of the chest abdomen and pelvis with IV contrast - 10/31/2018: MRI of the abdomen with contrast - 10/31/2018: Cholangiopancreatography MRI? 2019: Patient had EGD and colonoscopy done by Dr. Lozano. According to patient there were negative studies. 08/05/2019: MRI of the abdomen with contrast? 04/03/2020: MRI of the abdomen and pelvis with contrast?no interval metastatic disease in the pelvis. 03/28/2021: Creatinine 1.9, EGFR 49. 05/08/2022: CA 19- 9 is 190. 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 Zaldivar dermatology 09/03/2023: CA 19?9 is 270 03/13/2024: CA 19?9 is 161, hemoglobin 9.6, MCV 800, ANC 1.8, WBC 3.0, iron saturation 37%, ferritin 162, B12 is 870 folate is 16.96 04/24/2024: CEA 19?9 is 161, hemoglobin 10.3, MCV 99, ANC 2.0, WBC 3.1, iron saturation 37%, ferritin 180, B12 is 1,239 ONCOLOGY HISTORY:?[facility] On[facility] Hx? DIAGNOSIS: Malignant neoplasm of pancreas, unspecified [ICD10] C25.9 TREATMENT HISTORY: Care?Plan Start?Date Cycle Day Intent VRd?low?dex?he 11/06/2024 1 21 Palliative zometa?q?30?days,?q?90?days?for?bone?mets 11/19/2024 1 90 Palliative HISTORY OF PRESENT ILLNESS: OTHER MEDICAL HISTORY/CONDITIONS: HTN,?HIGH?CHOLESTEROL,?STROKE?2017 HERNIA?REPAIR?30YRS?AGO ?Clone Other Med Hx? FAMILY HISTORY: ?Clone Family Hx? SOCIAL HISTORY: Occupational?History:?RETIRED, LIVES WITH , SON Education?Level:?Completed something less than 8th grade Marital?Status:? Tobacco?Use?Years:?25 Tobacco?Use:?FORMER?SMOKER ETOH?Use:?DENIES Drug?Note:?DENIES ?Clone Social Hx? MEDICATIONS: 1. acyclovir - 400 mg 1 tab TWICE DAILY 2. allopurinol - 100 mg 1 tab Daily 3. Aspir-Low - 81 mg 1 tab Daily 4. atorvastatin - 40 mg 1 tab Daily 5. Compazine - 5 mg 5 mg Daily 6. dexAMETHasone - 20 mg 20 mg Daily 7. dexamethasone - 4 mg 5 tab Daily 8. doxazosin - 8 mg 1 tab Daily 9. ferrous sulfate - 325 mg (65 mg iron) 1 tab Daily 10. lisinopril - 2.5 mg 1 tab Daily 11. omeprazole magnesium - 20 mg 1 tab Daily 12. ondansetron - 8 mg 8 mg Daily 13. REVLIMID - 25 mg 1 Capsule Daily 14. Senokot-S - 8.6-50 mg 2 tab twice a day 15. Tylenol-Codeine #3 - 300-30 mg 1 tab Three times a day?[facility] Meds? Medications Last Reconciled by Analisa Clfiford MA on 11/30/2024 ALLERGIES: No Known Drug Allergies REVIEW OF SYSTEMS: A complete 14-point review of systems was performed and is negative except as noted in interval history. PHYSICAL EXAMINATION:?CloneBlock PE? VITAL SIGNS: Temperature?98.2, B/P?105/54, Oxygen?Saturation?97% Weight?0?lbs (Change?since?11/28/24:?-139?lbs) PAIN: 0 - No pain EYE: Conjunctivae is pink. MOUTH: Oral cavity is dry. NECK: Supple, no adenopathy CHEST: Clear to auscultation. No wheezes or rales audible. CARDIAC: Rhythm regular, no murmurs or gallops present. ABDOMEN: Soft. No hepatomegaly. No splenomegaly. No areas of tenderness in the abdomen. EXTREMITIES: No pedal edema or cyanosis. LABORATORY DATA: I have personally reviewed and interpreted each of the patient?s relevant lab tests, abnormal findings are below: Date 11/24/24 11/27/24 12/01/24 ??WHITE?BLOOD?COUNT?(Thou/mm3) ? 2.2?L 1.1?L ??RED?BLOOD?COUNT?(Miln/mm3) ? 2.25?L 2.61?L ??HEMOGLOBIN?(gm/dl) ? 7.8?L 8.9?L ??HEMATOCRIT?(%) ? 22.5?L 25.4?L ??PLATELET?COUNT?(Thou/mm3) ? 79?L 40?L ??NEUTROPHILS?%,?AUTO?(%) ? 72 62 ??LYMPH?%,?AUTO?(%) ? 15 23 ??NEUTROPHILS,?AUTO?(Thou/mm3) ? 1.6?L 0.7?L ??GLUCOSE,RANDOM?(mg/dL) 127?H ? 155?H ??BLOOD?UREA?NITROGEN?(mg/dL) 28?H ? 25?H ??CREATININE?(mg/dL) 1.10 ? 1.20 ??SODIUM?(mmol/L) 135?L ? 136 ??POTASSIUM?(mmol/L) 4.0 ? 4.3 ??CHLORIDE?(mmol/L) 104 ? 101 ??CrCl?(CandG)?(ml/min) 50.51 ? 46.30 ??AST/SGOT?(Unit/L) 14 ? 11 ??ALT/SGPT?(Unit/L) 19 ? 16 ??ALKALINE?PHOSPHATASE?(Unit/L) 59 ? 89 ??BILIRUBIN,?TOTAL?(mg/dL) 0.4 ? 0.4 ??PROTEIN?TOTAL?(gm/dl) 7.7 ? 7.0 ??ALBUMIN,?SERUM?(gm/dl) 3.8 ? 3.8 ??GLOBULIN?(gm/dl) 3.9?H ? 3.2 ??ALBUMIN/GLOBULIN?RATIO 1.0?L ? 1.2 ??CALCIUM,?SERUM?(mg/dL) 9.5 ? 8.1?L ??CALCIUM?SERUM?(CORRECTED)?(mg/dL) 9.7 ? 8.3?L Vital Signs - Weight: 137 lbs Physical Examination General: Patient looks better compared to previous visit. Color improved. Skin: Spot noted where patient previously had skin cancer. Another spot observed on arm that is black in color. Laboratory, Imaging, and Diagnostic Test Results - [place] Lambda chain: - Previous result: 1255 - Current result: 1190 - Immunoglobulin - Hemoglobin: < 8 g/dL (low) ASSESSMENT/PLAN:?Robert Hatch Assessment/Plan? #1 multiple myeloma Patient have elevated light chains Bone marrow biopsy shows more than 80% plasma cells X-ray showed lytic lesion Patient have multiple myeloma MRI showed lytic lesion Will refer to radiation oncology for radiation to the spine Will start on chemotherapy Patient also have crab criteria Will start on hydration and Zometa Walsh, a male patient with multiple myeloma, presenting for follow-up after one cycle of treatment, reporting improvement in symptoms and discussing ongoing management. Multiple Myeloma Assessment: Patient has shown initial response to treatment with a decrease in [place] Lambda chain from 1255 to 1190 after one cycle. IgG levels remain elevated at 3800. Patient has a history of borderline anemia for 6 years and compromised kidney function, which may have been early indicators of disease progression. Current treatment regimen includes Velcade, Revlimid (25 mg), and low-dose dexamethasone (20 mg). Patient is tolerating the current regimen well and reports feeling better. Anemia persists with hemoglobin below 8. Plan: - Continue current treatment regimen: Velcade, Revlimid 25 mg, and dexamethasone 20 mg - Monitor [place] Lambda chain and IgG levels monthly - Transfuse blood if hemoglobin remains below 8 - Continue baby aspirin for thrombosis prophylaxis - Consider increasing dexamethasone to 40 mg if not in remission at next visit - Evaluate for potential addition of daratumumab after next cycle - Administer calcium and vitamin D supplements with fatty meals - Follow up in 4 weeks to reassess treatment response and consider treatment intensification - Avoid heavy lifting Skin Lesions Assessment: Patient has a history of skin cancer and presents with new suspicious skin lesions, including a spot in the area of previous skin cancer and a black spot on the arm. Current lesion appears to be in the initial stages of squamous cell carcinoma based on visual inspection. Plan: - Refer to driver salesman for biopsy and evaluation of suspicious lesions - Continue aspirin; inform driver salesman of anticoagulation status - Recommend regular skin checks with driver salesman - Monitor for potential use of immunotherapy if malignancy is confirmed Bone Health Assessment: Patient requires bone medication for multiple myeloma management. Dental clearance has been obtained, but there are concerns about loose teeth and ongoing aspirin use complicating dental work. Plan: - Defer initiation of bone medication for 3-4 months - Reassess dental status and bone medication initiation after achieving cancer remission - Continue calcium and vitamin D supplementation Psychosocial Concerns Assessment: Patient experiencing mood changes related to chemotherapy and disease process. Family reports concerns about patient's mood and behavior. Plan: - Educate patient and family on expected mood changes due to treatment - Encourage walking, eating well, and maintaining a positive outlook - Advise family to establish boundaries and respect patient's autonomy - Monitor for signs of depression or significant mood alterations #2 anemia from multiple myeloma Reviewed patient's lab and do not indicate iron deficiency B12 and folic acid is normal Patient have multiple myeloma as per bone marrow biopsy results #3 elevated CA 19-9 I discussed with Mr. Walsh that he has been followed for elevated tumor marker for many years Tumor marker is now normal CA 19-9 can be elevated in benign conditions causing obstruction We do not need any further follow-up of this Patient should have routine screening RETURN TO CLINIC: 2 weeks BILLING AND COMPLIANCE: I reviewed external records from providers outside my specialty as summarized above. I spent a total of 50 minutes on this patient?s care on the day of their visit excluding time spent related to any billed procedures. This time includes time spent with the patient as well as time spent documenting in the medical record, reviewing patients records and tests, obtaining history, placing orders, communicating with other healthcare professionals, counseling the patient, family or caregiver, and/or care coordination for the diagnoses above. Electronically Signed by: Rebel Hatch MD T: 6:02 AM CC: Ricki?YARELIS Walsh PCP: Lex Atkins Referring: Lex Atkins This document was completed utilizing speech recognition software. Grammatical errors, random word insertions, pronoun errors, and incomplete sentences are an occasional consequence of this system due to software limitations, ambient noise, and hardware issues. Any formal questions or concerns about the content, text or information contained within the body of this dictation should be directly addressed to the provider for clarification.
[2024-12-04 11:48] LABS: Basophils % (Auto) 0 % (0-2.5); Eosinophils # (Auto) 0.1 Thou/mm3 (0.0-0.5); Eosinophils % (Auto) 8 % (0-10); Hematocrit 24.5 % (41.0-53.0); Immature Granulocytes % (Auto) 2 % (0-0); Immature Granulocytes Auto 0.02 Thou/mm3 (0.00-0.00); Lymphocytes # (Auto) 0.2 Thou/mm3 (1.0-4.8); Lymphocytes % (Auto) 14 % (10-50); Mean Corpuscular HGB Conc 35.5 g/dl (31.0-37.0); Mean Corpuscular Hemoglobin 34.3 pg (25.0-35.0); Mean Corpuscular Volume 97 fL (80-100); Monocytes # (Auto) 0.2 Thou/mm3 (0.0-0.8); Monocytes % (Auto) 16 % (0-12); Neutrophils # (Auto) 0.7 Thou/mm3 (1.8-7.7); Neutrophils % (Auto) 61 % (37-80); Nucleated Red Blood Cell % 0 /100 WBC (0); RDW Standard Deviation 53.5 fL (35.1-43.9); Red Blood Count 2.54 Miln/mm3 (4.50-5.90)
[2024-12-04 11:53] LABS: Alanine Aminotransferase 17 U/L (10-49); Albumin, Serum 3.7 gm/dL (3.4-4.8); Albumin/Globulin Ratio 1.4 (1.2-2.2); Alkaline Phosphatase 100 U/L (46-116); Anion Gap 8 (7-16); Aspartate Amino Transferase 12 U/L (0-34); BUN/Creatinine Ratio 18 Ratio (12-20); Bilirubin,Total 0.4 mg/dL (0.3-1.2); Blood Urea Nitrogen 18 mg/dL (9-23); Calcium 8.3 mg/dL (8.3-10.6); Calcium (Corrected) 8.5 mg/dL (8.5-10.1); Carbon Dioxide 23.6 mMol/L (20.0-31.0); Chloride 104 mMol/L (98-107); Globulin 2.7 gm/dL (2.3-3.5); Glucose 134 mg/dL (74-106); Osmolality,Calculated 275 (275-295); Potassium 3.8 mMol/L (3.4-5.1); Sodium 136 mMol/L (136-145); Total Protein 6.4 gm/dL (5.7-8.2); eGFR > 60 See Note
[2024-12-04 12:09] LABS: Hemoglobin 8.7 g/dL (13.5-16.0); Platelet Count 60 Thou/mm3 (140-440); White Blood Count 1.1 Thou/mm3 (3.8-10.6)
[2024-12-04 12:16] LABS: Slide Review Platelets confirmed
[2024-12-11 10:27] LABS: Basophils % (Auto) 0 % (0-2.5); Eosinophils # (Auto) 0.1 Thou/mm3 (0.0-0.5); Eosinophils % (Auto) 2 % (0-10); Hematocrit 21.7 % (41.0-53.0); Immature Granulocytes % (Auto) 0 % (0-0); Immature Granulocytes Auto 0.01 Thou/mm3 (0.00-0.00); Lymphocytes # (Auto) 0.3 Thou/mm3 (1.0-4.8); Lymphocytes % (Auto) 12 % (10-50); Mean Corpuscular Hemoglobin 34.5 pg (25.0-35.0); Mean Corpuscular Volume 99 fL (80-100); Monocytes # (Auto) 0.3 Thou/mm3 (0.0-0.8); Monocytes % (Auto) 11 % (0-12); Neutrophils # (Auto) 1.7 Thou/mm3 (1.8-7.7); Neutrophils % (Auto) 74 % (37-80); Nucleated Red Blood Cell % 0 /100 WBC (0); Platelet Count 239 Thou/mm3 (140-440); RDW Standard Deviation 58.3 fL (35.1-43.9)
[2024-12-11 10:54] LABS: White Blood Count 2.3 Thou/mm3 (3.8-10.6)
[2024-12-11 10:55] LABS: Hemoglobin 7.6 g/dL (13.5-16.0)
[2024-12-11 11:06] LABS: Alanine Aminotransferase 12 U/L (10-49); Albumin, Serum 3.5 gm/dL (3.4-4.8); Albumin/Globulin Ratio 1.5 (1.2-2.2); Alkaline Phosphatase 109 U/L (46-116); Anion Gap 9 (7-16); Aspartate Amino Transferase 12 U/L (0-34); BUN/Creatinine Ratio 23 Ratio (12-20); Bilirubin,Total 0.3 mg/dL (0.3-1.2); Blood Urea Nitrogen 21 mg/dL (9-23); Calcium 8.3 mg/dL (8.3-10.6); Calcium (Corrected) 8.7 mg/dL (8.5-10.1); Carbon Dioxide 24.1 mMol/L (20.0-31.0); Chloride 107 mMol/L (98-107); Creatinine (Component) 0.9 mg/dL (0.6-1.3); Globulin 2.4 gm/dL (2.3-3.5); Glucose 126 mg/dL (74-106); Osmolality,Calculated 284 (275-295); Potassium 3.8 mMol/L (3.4-5.1); Sodium 140 mMol/L (136-145); Total Protein 5.9 gm/dL (5.7-8.2); eGFR > 60 See Note
[2024-12-26 11:48] LABS: Basophils % (Auto) 0 % (0-2.5); Eosinophils # (Auto) 0.2 Thou/mm3 (0.0-0.5); Eosinophils % (Auto) 5 % (0-10); Hematocrit 27.5 % (41.0-53.0); Hemoglobin 9.1 g/dL (13.5-16.0); Immature Granulocytes % (Auto) 1 % (0-0); Immature Granulocytes Auto 0.02 Thou/mm3 (0.00-0.00); Lymphocytes # (Auto) 0.7 Thou/mm3 (1.0-4.8); Lymphocytes % (Auto) 21 % (10-50); Mean Corpuscular HGB Conc 33.1 g/dl (31.0-37.0); Mean Corpuscular Volume 100 fL (80-100); Monocytes # (Auto) 0.4 Thou/mm3 (0.0-0.8); Monocytes % (Auto) 12 % (0-12); Neutrophils % (Auto) 61 % (37-80); Nucleated Red Blood Cell % 0 /100 WBC (0); Platelet Count 166 Thou/mm3 (140-440); RDW Standard Deviation 60.1 fL (35.1-43.9); Red Blood Count 2.76 Miln/mm3 (4.50-5.90); White Blood Count 3.3 Thou/mm3 (3.8-10.6)
[2024-12-26 12:15] LABS: Alanine Aminotransferase 22 U/L (10-49); Albumin, Serum 3.7 gm/dL (3.4-4.8); Albumin/Globulin Ratio 1.9 (1.2-2.2); Alkaline Phosphatase 104 U/L (46-116); Anion Gap 8 (7-16); Aspartate Amino Transferase 14 U/L (0-34); BUN/Creatinine Ratio 14 Ratio (12-20); Bilirubin,Total 0.3 mg/dL (0.3-1.2); Blood Urea Nitrogen 14 mg/dL (9-23); Calcium 8.4 mg/dL (8.3-10.6); Calcium (Corrected) 8.6 mg/dL (8.5-10.1); Carbon Dioxide 25.7 mMol/L (20.0-31.0); Chloride 109 mMol/L (98-107); Globulin 1.9 gm/dL (2.3-3.5); Glucose 117 mg/dL (74-106); Osmolality,Calculated 286 (275-295); Potassium 3.5 mMol/L (3.4-5.1); Sodium 143 mMol/L (136-145); Total Protein 5.6 gm/dL (5.7-8.2); eGFR > 60 See Note
== END 2024-12-30 23:59 | disposition home or self-care (01) ==
LOC: SCTC 11:00
PROVIDERS: Internal Medicine Hematology & Oncology; PCP Family Medicine; Referring Provider Family Medicine; Visit Provider Radiology Therapeutic Radiology
DX: C90.00 Multiple myeloma not having achieved remission (principal); D63.0 Anemia in neoplastic disease; G89.3 Neoplasm related pain (acute) (chronic); L98.8 Other specified disorders of the skin and subcutaneous tissue; Z85.828 Personal history of other malignant neoplasm of skin
CPT/HCPCS: 36415; 36430; 80053; 85025; 86850; 86900; 86901; 86923; 96360; 96361; 96401; 99211; 99212; A4216; J1100; J2405; J7030; J7050; J9041; P9016; G0463

== ENCOUNTER → 2025-01-01 | Outpatient (CLI) | payer MEDICARE, SELFPAY ==
[2025-01-04 22:07] LABS: Abnormal protein band 1 0.6 g/dL (NONE DETECTED); Albumin 3.5 g/dL (3.8-4.8); Alpha-1-Globulin 0.3 g/dL (0.2-0.3); Alpha-2-Globulin 0.7 g/dL (0.5-0.9); Beta-1-Globulin 0.3 g/dL (0.4-0.6); Beta-2-globulin 0.2 g/dL (0.2-0.5); Gamma Globulin 0.7 g/dL (0.8-1.7); Immunoglobulin G 879 mg/dL (600-1540); Kappa Light Chain, Free 33.3 mg/L (3.3-19.4); Lambda Light Chain, Free 9.7 mg/L (5.7-26.3)
[2025-01-05 07:07] LABS: Immunoglobulin A 5 mg/dL (70-320); Immunoglobulin M 26 mg/dL (50-300); Kappa/Lambda, Free Ratio 3.43 (0.26-1.65); Protein, total, serum 5.7 g/dL (6.1-8.1)
== END | disposition home or self-care (01) ==
LOC: SCTO 11:17
PROVIDERS: PCP Family Medicine; Referring Provider Internal Medicine Hematology & Oncology; Visit Provider Internal Medicine Hematology & Oncology
DX: C25.9 Malignant neoplasm of pancreas, unspecified (principal); R77.9 Abnormality of plasma protein, unspecified; C90.00 Multiple myeloma not having achieved remission
CPT/HCPCS: 36415; 82784; 83521; 84155; 84165; 86334

== ENCOUNTER → 2025-01-08 | Outpatient (CLI) | payer MEDICARE, SELFPAY ==
[2025-01-08 14:47] LABS: Basophils % (Auto) 1 % (0-2.5); Eosinophils # (Auto) 0.1 Thou/mm3 (0.0-0.5); Eosinophils % (Auto) 3 % (0-10); Hematocrit 27.8 % (41.0-53.0); Hemoglobin 9.5 g/dL (13.5-16.0); Immature Granulocytes % (Auto) 1 % (0-0); Immature Granulocytes Auto 0.02 Thou/mm3 (0.00-0.00); Lymphocytes # (Auto) 1.3 Thou/mm3 (1.0-4.8); Lymphocytes % (Auto) 29 % (10-50); Mean Corpuscular HGB Conc 34.2 g/dl (31.0-37.0); Mean Corpuscular Hemoglobin 33.2 pg (25.0-35.0); Mean Corpuscular Volume 97 fL (80-100); Monocytes # (Auto) 0.6 Thou/mm3 (0.0-0.8); Monocytes % (Auto) 13 % (0-12); Neutrophils # (Auto) 2.4 Thou/mm3 (1.8-7.7); Neutrophils % (Auto) 55 % (37-80); Nucleated Red Blood Cell % 0 /100 WBC (0); Platelet Count 159 Thou/mm3 (140-440); RDW Standard Deviation 62.5 fL (35.1-43.9); Red Blood Count 2.86 Miln/mm3 (4.50-5.90); White Blood Count 4.4 Thou/mm3 (3.8-10.6)
[2025-01-08 14:53] LABS: Alanine Aminotransferase 17 U/L (10-49); Albumin, Serum 3.9 gm/dL (3.4-4.8); Albumin/Globulin Ratio 2.4 (1.2-2.2); Alkaline Phosphatase 100 U/L (46-116); Anion Gap 9 (7-16); BUN/Creatinine Ratio 18 Ratio (12-20); Bilirubin,Total 0.4 mg/dL (0.3-1.2); Blood Urea Nitrogen 18 mg/dL (9-23); Calcium 9.1 mg/dL (8.3-10.6); Calcium (Corrected) 9.2 mg/dL (8.5-10.1); Carbon Dioxide 25.1 mMol/L (20.0-31.0); Chloride 106 mMol/L (98-107); Globulin 1.6 gm/dL (2.3-3.5); Glucose 124 mg/dL (74-106); Osmolality,Calculated 282 (275-295); Potassium 3.9 mMol/L (3.4-5.1); Sodium 140 mMol/L (136-145); Total Protein 5.5 gm/dL (5.7-8.2); eGFR > 60 See Note
[2025-01-12 19:48] LABS: Abnormal protein band 1 0.5 g/dL (NONE DETECTED); Albumin 3.6 g/dL (3.8-4.8); Alpha-1-Globulin 0.3 g/dL (0.2-0.3); Alpha-2-Globulin 0.7 g/dL (0.5-0.9); Beta-1-Globulin 0.3 g/dL (0.4-0.6); Beta-2-globulin 0.2 g/dL (0.2-0.5); Gamma Globulin 0.6 g/dL (0.8-1.7); Immunoglobulin G 854 mg/dL (600-1540); Kappa Light Chain, Free 32.6 mg/L (3.3-19.4); Lambda Light Chain, Free 7.5 mg/L (5.7-26.3)
[2025-01-15 07:06] LABS: Immunoglobulin A 6 mg/dL (70-320); Immunoglobulin M 21 mg/dL (50-300); Kappa/Lambda, Free Ratio 4.35 (0.26-1.65); Protein, total, serum 5.8 g/dL (6.1-8.1)
== END | disposition home or self-care (01) ==
LOC: COPL 13:41
PROVIDERS: PCP Family Medicine; Referring Provider Internal Medicine Hematology & Oncology; Visit Provider Internal Medicine Hematology & Oncology
DX: C25.9 Malignant neoplasm of pancreas, unspecified (principal); R77.9 Abnormality of plasma protein, unspecified; C90.00 Multiple myeloma not having achieved remission
CPT/HCPCS: 36415; 80053; 82784; 83521; 84155; 84165; 85025; 86334

== ENCOUNTER → 2025-01-15 | Outpatient (CLI) | payer MEDICARE, MEDICAID, SELFPAY ==
[2025-01-15 14:05] LABS: Basophils % (Auto) 0 % (0-2.5); Eosinophils # (Auto) 0.1 Thou/mm3 (0.0-0.5); Eosinophils % (Auto) 3 % (0-10); Hematocrit 32.6 % (41.0-53.0); Hemoglobin 10.9 g/dL (13.5-16.0); Immature Granulocytes % (Auto) 1 % (0-0); Immature Granulocytes Auto 0.02 Thou/mm3 (0.00-0.00); Lymphocytes # (Auto) 1.4 Thou/mm3 (1.0-4.8); Lymphocytes % (Auto) 33 % (10-50); Mean Corpuscular HGB Conc 33.4 g/dl (31.0-37.0); Mean Corpuscular Hemoglobin 33.5 pg (25.0-35.0); Mean Corpuscular Volume 100 fL (80-100); Monocytes # (Auto) 0.3 Thou/mm3 (0.0-0.8); Monocytes % (Auto) 8 % (0-12); Neutrophils # (Auto) 2.3 Thou/mm3 (1.8-7.7); Neutrophils % (Auto) 56 % (37-80); Nucleated Red Blood Cell % 0 /100 WBC (0); Platelet Count 122 Thou/mm3 (140-440); RDW Standard Deviation 61.1 fL (35.1-43.9); Red Blood Count 3.25 Miln/mm3 (4.50-5.90); White Blood Count 4.2 Thou/mm3 (3.8-10.6)
[2025-01-15 14:27] LABS: Alanine Aminotransferase 16 U/L (10-49); Albumin/Globulin Ratio 2.5 (1.2-2.2); Alkaline Phosphatase 106 U/L (46-116); Anion Gap 8 (7-16); Aspartate Amino Transferase 14 U/L (0-34); BUN/Creatinine Ratio 16 Ratio (12-20); Bilirubin,Total 0.5 mg/dL (0.3-1.2); Blood Urea Nitrogen 16 mg/dL (9-23); Calcium 8.9 mg/dL (8.3-10.6); Calcium (Corrected) 8.9 mg/dL (8.5-10.1); Carbon Dioxide 28.5 mMol/L (20.0-31.0); Chloride 107 mMol/L (98-107); Globulin 1.6 gm/dL (2.3-3.5); Glucose 150 mg/dL (74-106); Osmolality,Calculated 289 (275-295); Sodium 143 mMol/L (136-145); Total Protein 5.6 gm/dL (5.7-8.2); eGFR > 60 See Note
== END | disposition home or self-care (01) ==
PROVIDERS: PCP Family Medicine; Referring Provider Internal Medicine Hematology & Oncology; Visit Provider Internal Medicine Hematology & Oncology
DX: C25.9 Malignant neoplasm of pancreas, unspecified (principal); R77.9 Abnormality of plasma protein, unspecified; C90.00 Multiple myeloma not having achieved remission
CPT/HCPCS: 36415; 80053; 85025

== ENCOUNTER → 2025-01-22 | Outpatient (CLI) | payer MEDICARE, MEDICAID, SELFPAY ==
[2025-01-22 14:46] LABS: Basophils % (Auto) 0 % (0-2.5); Eosinophils # (Auto) 0.2 Thou/mm3 (0.0-0.5); Eosinophils % (Auto) 5 % (0-10); Hematocrit 30.1 % (41.0-53.0); Immature Granulocytes % (Auto) 0 % (0-0); Immature Granulocytes Auto 0.02 Thou/mm3 (0.00-0.00); Lymphocytes # (Auto) 1.5 Thou/mm3 (1.0-4.8); Lymphocytes % (Auto) 31 % (10-50); Mean Corpuscular HGB Conc 33.2 g/dl (31.0-37.0); Mean Corpuscular Hemoglobin 33.4 pg (25.0-35.0); Mean Corpuscular Volume 101 fL (80-100); Monocytes # (Auto) 0.5 Thou/mm3 (0.0-0.8); Monocytes % (Auto) 10 % (0-12); Neutrophils # (Auto) 2.7 Thou/mm3 (1.8-7.7); Neutrophils % (Auto) 54 % (37-80); Nucleated Red Blood Cell % 0 /100 WBC (0); Platelet Count 100 Thou/mm3 (140-440); RDW Standard Deviation 58.1 fL (35.1-43.9); Red Blood Count 2.99 Miln/mm3 (4.50-5.90)
[2025-01-22 14:50] LABS: Alanine Aminotransferase 16 U/L (10-49); Albumin, Serum 3.8 gm/dL (3.4-4.8); Albumin/Globulin Ratio 2.4 (1.2-2.2); Alkaline Phosphatase 99 U/L (46-116); Anion Gap 7 (7-16); Aspartate Amino Transferase 12 U/L (0-34); BUN/Creatinine Ratio 16 Ratio (12-20); Bilirubin,Total 0.4 mg/dL (0.3-1.2); Blood Urea Nitrogen 16 mg/dL (9-23); Calcium 8.9 mg/dL (8.3-10.6); Calcium (Corrected) 9.1 mg/dL (8.5-10.1); Carbon Dioxide 27.9 mMol/L (20.0-31.0); Chloride 107 mMol/L (98-107); Globulin 1.6 gm/dL (2.3-3.5); Glucose 90 mg/dL (74-106); Osmolality,Calculated 284 (275-295); Sodium 142 mMol/L (136-145); Total Protein 5.4 gm/dL (5.7-8.2); eGFR > 60 See Note
== END | disposition home or self-care (01) ==
LOC: SCTO 13:39
PROVIDERS: PCP Family Medicine; Referring Provider Internal Medicine Hematology & Oncology; Visit Provider Internal Medicine Hematology & Oncology
DX: C25.9 Malignant neoplasm of pancreas, unspecified (principal); R77.9 Abnormality of plasma protein, unspecified; C90.00 Multiple myeloma not having achieved remission
CPT/HCPCS: 36415; 80053; 85025

== ENCOUNTER 2025-01-23 14:59 | Outpatient (RCR) | payer MEDICARE, SELFPAY ==
[2025-01-02 15:02] LABS: Basophils % (Auto) 0 % (0-2.5); Eosinophils # (Auto) 0.1 Thou/mm3 (0.0-0.5); Eosinophils % (Auto) 3 % (0-10); Hematocrit 27.2 % (41.0-53.0); Hemoglobin 9.1 g/dL (13.5-16.0); Immature Granulocytes % (Auto) 0 % (0-0); Immature Granulocytes Auto 0.01 Thou/mm3 (0.00-0.00); Lymphocytes # (Auto) 1.9 Thou/mm3 (1.0-4.8); Lymphocytes % (Auto) 42 % (10-50); Mean Corpuscular HGB Conc 33.5 g/dl (31.0-37.0); Mean Corpuscular Hemoglobin 33.8 pg (25.0-35.0); Mean Corpuscular Volume 101 fL (80-100); Monocytes # (Auto) 0.6 Thou/mm3 (0.0-0.8); Monocytes % (Auto) 13 % (0-12); Neutrophils % (Auto) 42 % (37-80); Nucleated Red Blood Cell % 0 /100 WBC (0); Platelet Count 178 Thou/mm3 (140-440); RDW Standard Deviation 63.7 fL (35.1-43.9); Red Blood Count 2.69 Miln/mm3 (4.50-5.90); White Blood Count 4.6 Thou/mm3 (3.8-10.6)
[2025-01-02 15:22] LABS: Alanine Aminotransferase 24 U/L (10-49); Albumin, Serum 3.8 gm/dL (3.4-4.8); Albumin/Globulin Ratio 2.2 (1.2-2.2); Alkaline Phosphatase 107 U/L (46-116); Anion Gap 10 (7-16); Aspartate Amino Transferase 17 U/L (0-34); BUN/Creatinine Ratio 25 Ratio (12-20); Bilirubin,Total 0.3 mg/dL (0.3-1.2); Blood Urea Nitrogen 20 mg/dL (9-23); Calcium 8.2 mg/dL (8.3-10.6); Calcium (Corrected) 8.4 mg/dL (8.5-10.1); Carbon Dioxide 27.1 mMol/L (20.0-31.0); Chloride 109 mMol/L (98-107); Creatinine (Component) 0.8 mg/dL (0.6-1.3); Globulin 1.7 gm/dL (2.3-3.5); Glucose 91 mg/dL (74-106); Osmolality,Calculated 293 (275-295); Potassium 4.2 mMol/L (3.4-5.1); Sodium 146 mMol/L (136-145); Total Protein 5.5 gm/dL (5.7-8.2); eGFR > 60 See Note
--- NOTE | 2025-01-16 00:57 | CTCFLWUP_ITS ---
Patient: BRISEYDA WALSH : 1950 Page 2 of 3 FOLLOW UP NOTE DATE OF SERVICE: 01/10/2025 NAME: BRISEYDA WALSH ACCOUNT: [id number] : 1950 AGE: 74 INTERVAL HISTORY: Subjective: Chief Complaint Follow-up for multiple myeloma treatment, improved pain and energy levels History of Present Illness Mr. Gallegos, a patient with a history of stage three multiple myeloma, presents for follow-up of his cancer treatment. He reports significant improvement in his overall condition, stating he feels much better with increased energy levels and reduced pain. The patient notes that his bone pain has largely subsided, though he experienced one night of severe pain recently. He reports improved mobility and functionality, mentioning that he is now able to drive and perform light activities. Mr. Gallegos also notes experiencing swelling in his feet, which improved after elevating them as advised. The patient expresses satisfaction with his progress, stating, Every day I can feel better, more energy, healthy, you know, and doing something, little light things. He demonstrates good adherence to his treatment regimen, including continuing his oral medication (25-milligram tablets) and attending his chemotherapy sessions. Mr. Gallegos also mentions taking vitamin D as recommended. Overall, the patient reports a significant positive change in his health status since his last visit, with improved energy, reduced pain, and better overall functioning. Medications and Supplements - Oral chemotherapy - 25-milligram tablets - Vitamin D - IV chemotherapy Review of Systems General: Positive for improved energy. Musculoskeletal: Positive for bone pain, improved from previous visit. Cardiovascular: Positive for lower extremity edema, improved with elevation. Objective: Laboratory, Imaging, and Diagnostic Test Results - Date: December 2024 (current) - Montross/Lambda ratio: 3.43 - Montross light chain: 9 - Lambda light chain: 5.26 - Tumor marker: 0.6 - Previous results: - August 2024 (initial blood work) - Montross light chain: 1615 - Lambda light chain: 10.42 (calculated) - Montross/Lambda ratio: 155 - Tumor marker: 3.9 - Intermediate results (dates not specified) - Montross light chain: 1255, then 1195, then 36 - Montross/Lambda ratio: 33 (most recent before current) Surgical History - Skin cancer removal 1-2 years ago, location not specified Medications and Supplements - Revlimid 25 mg - Velcade - Low dose to avoid neuropathy - Dexamethasone 20 mg - Aspirin (baby aspirin) - To prevent blood clots associated with Revlimid - Calcium - Vitamin D Social History - Living Situation: Patient is cared for by his - Occupation: Not currently driving - Exercise: Advised to walk - Diet: Encouraged to eat and take calcium and vitamin D supplements - Stress/Coping: Experiencing mood changes and emotional fluctuations due to treatment - Social Support: provides care and support Review of Systems General: Positive for weight loss, improved mood. Skin: Positive for new skin lesions. Neurological: Positive for history of numbness and tingling. Psychiatric: Positive for improved mood, history of emotional changes. Musculoskeletal: Negative for bone pain. PREVIOUS NOTE: Briseyda aWlsh is a 74-year-old Danish-speaking male who had been having intermittent abdominal pain. On 04/26/2018 he had a CA 19?9 drawn which was 145. Upper limit of normal is less than 34. At last visit I had concern for causes of anemia and patient's myeloma workup was done. Patient is here to follow-up on results Patient was seen in the clinic 07/01/2018: CT scan of the chest abdomen and pelvis with IV contrast CA 19?9 trend: 04/26/2018: CA 19?9 is 145. 06/08/2018: CA 19?9 is 166. 09/28/2018: CA 19?9 is 183. 11/09/2018: CA 19?9 is 206. 03/03/2019: CA 19?9 is 189. 02/14/2020: CA 19?9 is 378. 03/29/2020: CA 19?9 is 210 09/30/2020: CA 19?9 is 212. 10/18/2018: CT scan of the chest abdomen and pelvis with IV contrast - 10/31/2018: MRI of the abdomen with contrast - 10/31/2018: Cholangiopancreatography MRI? 2019: Patient had EGD and colonoscopy done by Dr. Lozano. According to patient there were negative studies. 08/05/2019: MRI of the abdomen with contrast? 04/03/2020: MRI of the abdomen and pelvis with contrast?no interval metastatic disease in the pelvis. 03/28/2021: Creatinine 1.9, EGFR 49. 05/08/2022: CA 19- 9 is 190. 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 Zaldivar dermatology 09/03/2023: CA 19?9 is 270 03/13/2024: CA 19?9 is 161, hemoglobin 9.6, MCV 800, ANC 1.8, WBC 3.0, iron saturation 37%, ferritin 162, B12 is 870 folate is 16.96 04/24/2024: CEA 19?9 is 161, hemoglobin 10.3, MCV 99, ANC 2.0, WBC 3.1, iron saturation 37%, ferritin 180, B12 is 1,239 ONCOLOGY HISTORY: DIAGNOSIS: Malignant neoplasm of pancreas, unspecified [ICD10] C25.9 TREATMENT HISTORY: Care?Plan Start?Date Cycle Day Intent VRd?low?dex?he 11/06/2024 1 21 Palliative zometa?q?30?days,?q?90?days?for?bone?mets 03/02/2025 1 90 Palliative HISTORY OF PRESENT ILLNESS: OTHER MEDICAL HISTORY/CONDITIONS: HTN,?HIGH?CHOLESTEROL,?STROKE?2017 HERNIA?REPAIR?30YRS?[facility] FAMILY HISTORY: SOCIAL HISTORY: Occupational?History:?RETIRED, LIVES WITH , SON Education?Level:?Completed something less than 8th grade Marital?Status:? Tobacco?Use?Years:?25 Tobacco?Use:?FORMER?SMOKER ETOH?Use:?DENIES Drug?Note:?DENIES MEDICATIONS: 1. acetaminophen-codeine - 300-30 mg 1 tab Q6 2. acyclovir - 400 mg 1 tab TWICE DAILY 3. allopurinol - 100 mg 1 tab Daily 4. Aspir-Low - 81 mg 1 tab Daily 5. atorvastatin - 40 mg 1 tab Daily 6. Compazine - 5 mg 5 mg Daily 7. dexAMETHasone - 20 mg 20 mg Daily 8. dexamethasone - 4 mg 5 tab Daily 9. doxazosin - 8 mg 1 tab Daily 10. ferrous sulfate - 325 mg (65 mg iron) 1 tab Daily 11. lisinopril - 2.5 mg 1 tab Daily 12. omeprazole magnesium - 20 mg 1 tab Daily 13. ondansetron - 8 mg 8 mg Daily 14. REVLIMID - 25 mg 1 Capsule Daily 15. Senokot-S - 8.6-50 mg 2 tab twice a day 16. Tylenol-Codeine #3 - 300-30 mg 1 tab Three times a day Medications Last Reconciled by Nelida Bradshaw MA on 01/11/2025 ALLERGIES: No Known Drug Allergies REVIEW OF SYSTEMS: A complete 14-point review of systems was performed and is negative except as noted in interval history. PHYSICAL EXAMINATION: VITAL SIGNS: PAIN: 3 - Between mild and moderate pain ECOG Performance Status: 0 - Asymptomatic and fully active EYE: Conjunctivae is pink. MOUTH: Oral cavity is dry. NECK: Supple, no adenopathy CHEST: Clear to auscultation. No wheezes or rales audible. CARDIAC: Rhythm regular, no murmurs or gallops present. ABDOMEN: Soft. No hepatomegaly. No splenomegaly. No areas of tenderness in the abdomen. EXTREMITIES: No pedal edema or cyanosis. LABORATORY DATA: I have personally reviewed and interpreted each of the patient?s relevant lab tests, abnormal findings are below: Date 01/02/25 01/08/25 ??WHITE?BLOOD?COUNT?(Thou/mm3) 4.6 4.4 ??RED?BLOOD?COUNT?(Miln/mm3) 2.69?L 2.86?L ??HEMOGLOBIN?(gm/dl) 9.1?L 9.5?L ??HEMATOCRIT?(%) 27.2?L 27.8?L ??PLATELET?COUNT?(Thou/mm3) 178 159 ??NEUTROPHILS?%,?AUTO?(%) 42 55 ??LYMPH?%,?AUTO?(%) 42 29 ??NEUTROPHILS,?AUTO?(Thou/mm3) 2.0 2.4 ??GLUCOSE,RANDOM?(mg/dL) 91 124?H ??BLOOD?UREA?NITROGEN?(mg/dL) 20 18 ??CREATININE?(mg/dL) 0.80 1.00 ??SODIUM?(mmol/L) 146?H 140 ??POTASSIUM?(mmol/L) 4.2 3.9 ??CHLORIDE?(mmol/L) 109?H 106 ??CrCl?(CandG)?(ml/min) 76.10 60.88 ??AST/SGOT?(Unit/L) 17 ? ??ALT/SGPT?(Unit/L) 24 17 ??ALKALINE?PHOSPHATASE?(Unit/L) 107 100 ??BILIRUBIN,?TOTAL?(mg/dL) 0.3 0.4 ??PROTEIN?TOTAL?(gm/dl) 5.5?L 5.5?L ??ALBUMIN,?SERUM?(gm/dl) 3.8 3.9 ??GLOBULIN?(gm/dl) 1.7?L 1.6?L ??ALBUMIN/GLOBULIN?RATIO 2.2 2.4?H ??CALCIUM,?SERUM?(mg/dL) 8.2?L 9.1 ??CALCIUM?SERUM?(CORRECTED)?(mg/dL) 8.4?L 9.2 ASSESSMENT/PLAN: Assessment and Plan: El, a male patient with multiple myeloma, presents for follow-up with significant improvement in symptoms and laboratory values. Multiple Myeloma Assessment: Patient demonstrates significant improvement in multiple myeloma markers. Montross lambda chain ratio has decreased from 155 to 3.43. Montross light chain levels have reduced from 1615 to 33. The tumor marker has decreased from 3.9 to 0.6. These improvements correlate with the patient's reported reduction in bone pain and increased energy levels. The patient was initially diagnosed with stage 3 myeloma and has shown a robust response to the current treatment regimen. Plan: - Continue current chemotherapy regimen - Maintain IV chemotherapy - Continue oral chemotherapy with 25 mg tablets - Continue vitamin D supplementation - Elevate feet at night to manage edema - Monitor for continued improvement in myeloma markers and symptoms Bone Pain Assessment: Patient reports significant improvement in bone pain, which was initially severe due to myeloma-related bone involvement. The reduction in pain correlates with the improvement in myeloma markers, supporting the assessment that the pain was directly related to the cancer activity in the bones. Plan: - Continue current pain management approach - Monitor pain levels at follow-up appointments Peripheral Edema It is Resolved Skin lesions Assessment: Patient has a history of skin cancer and presents with new suspicious skin lesions, including a spot in the area of previous skin cancer and a black spot on the arm. Current lesion appears to be in the initial stages of squamous cell carcinoma based on visual inspection. Plan: - Refer to bottom sprayer for biopsy and evaluation of suspicious lesions - Continue aspirin; inform bottom sprayer of anticoagulation status - Recommend regular skin checks with bottom sprayer - Monitor for potential use of immunotherapy if malignancy is confirmed Bone Health Assessment: Patient requires bone medication for multiple myeloma management. Dental clearance has been obtained, but there are concerns about loose teeth and ongoing aspirin use complicating dental work. Plan: - Defer initiation of bone medication for 3-4 months - Reassess dental status and bone medication initiation after achieving cancer remission - Continue calcium and vitamin D supplementation Psychosocial Concerns Assessment: Patient experiencing mood changes related to chemotherapy and disease process. Family reports concerns about patient's mood and behavior. Plan: - Educate patient and family on expected mood changes due to treatment - Encourage walking, eating well, and maintaining a positive outlook - Advise family to establish boundaries and respect patient's autonomy - Monitor for signs of depression or significant mood alterations #2 anemia from multiple myeloma Reviewed patient's lab and do not indicate iron deficiency B12 and folic acid is normal Patient have multiple myeloma as per bone marrow biopsy results #3 elevated CA 19-9 I discussed with Mr. Walsh that he has been followed for elevated tumor marker for many years Tumor marker is now normal CA 19-9 can be elevated in benign conditions causing obstruction We do not need any further follow-up of this Patient should have routine screening ORDERS: Order # Description [id number] Serum Protein Electrophoresis + Serum Immunofixation Electrophoresis + Beta-2 Microglobulin + Free kappa and lambda light chains plus ratio, quantitative + Quant Immunoglobulins + Urine Protien Electrophoresis [id number] Comprehensive Metabolic Panel - 12 + CBC with Auto Diff RETURN TO CLINIC: BILLING AND COMPLIANCE: I reviewed external records from providers outside my specialty as summarized above. I spent a total of 50 minutes on this patient?s care on the day of their visit excluding time spent related to any billed procedures. This time includes time spent with the patient as well as time spent documenting in the medical record, reviewing patients records and tests, obtaining history, placing orders, communicating with other healthcare professionals, counseling the patient, family or caregiver, and/or care coordination for the diagnoses above. Electronically Signed by: Rebel Hatch MD T: 12:55 AM CC: Ricki?Jillian,? PCP: Lex Atkins Referring: Lex Atkins This document was completed utilizing speech recognition software. Grammatical errors, random word insertions, pronoun errors, and incomplete sentences are an occasional consequence of this system due to software limitations, ambient noise, and hardware issues. Any formal questions or concerns about the content, text or information contained within the body of this dictation should be directly addressed to the provider for clarification.
== END 2025-01-29 23:59 | disposition home or self-care (01) ==
LOC: SCTC 14:59
PROVIDERS: PCP Family Medicine; Referring Provider Family Medicine; Visit Provider Internal Medicine Hematology & Oncology
DX: Z51.11 Encounter for antineoplastic chemotherapy (principal); C90.00 Multiple myeloma not having achieved remission; D63.0 Anemia in neoplastic disease; G89.3 Neoplasm related pain (acute) (chronic); L98.8 Other specified disorders of the skin and subcutaneous tissue; Z85.828 Personal history of other malignant neoplasm of skin
CPT/HCPCS: 80053; 85025; 96360; 96361; 96401; 99212; A4216; J9041; G0463

== ENCOUNTER → 2025-01-29 | Outpatient (CLI) | payer MEDICARE, MEDICAID, SELFPAY ==
[2025-01-29 16:23] LABS: Basophils % (Auto) 0 % (0-2.5); Eosinophils # (Auto) 0.1 Thou/mm3 (0.0-0.5); Eosinophils % (Auto) 4 % (0-10); Hematocrit 29.3 % (41.0-53.0); Immature Granulocytes % (Auto) 0 % (0-0); Immature Granulocytes Auto 0.01 Thou/mm3 (0.00-0.00); Lymphocytes # (Auto) 1.2 Thou/mm3 (1.0-4.8); Lymphocytes % (Auto) 30 % (10-50); Mean Corpuscular HGB Conc 34.1 g/dl (31.0-37.0); Mean Corpuscular Hemoglobin 33.2 pg (25.0-35.0); Mean Corpuscular Volume 97 fL (80-100); Monocytes # (Auto) 0.4 Thou/mm3 (0.0-0.8); Monocytes % (Auto) 11 % (0-12); Neutrophils # (Auto) 2.1 Thou/mm3 (1.8-7.7); Neutrophils % (Auto) 55 % (37-80); Nucleated Red Blood Cell % 0 /100 WBC (0); Platelet Count 96 Thou/mm3 (140-440); RDW Standard Deviation 54.8 fL (35.1-43.9); Red Blood Count 3.01 Miln/mm3 (4.50-5.90); White Blood Count 3.9 Thou/mm3 (3.8-10.6)
[2025-01-29 16:35] LABS: Alanine Aminotransferase 19 U/L (10-49); Albumin, Serum 3.9 gm/dL (3.4-4.8); Albumin/Globulin Ratio 2.3 (1.2-2.2); Alkaline Phosphatase 101 U/L (46-116); Anion Gap 7 (7-16); Aspartate Amino Transferase 15 U/L (0-34); BUN/Creatinine Ratio 18 Ratio (12-20); Bilirubin,Total 0.5 mg/dL (0.3-1.2); Blood Urea Nitrogen 16 mg/dL (9-23); Calcium 8.6 mg/dL (8.3-10.6); Calcium (Corrected) 8.7 mg/dL (8.5-10.1); Carbon Dioxide 25.2 mMol/L (20.0-31.0); Chloride 110 mMol/L (98-107); Creatinine (Component) 0.9 mg/dL (0.6-1.3); Globulin 1.7 gm/dL (2.3-3.5); Glucose 103 mg/dL (74-106); Osmolality,Calculated 284 (275-295); Potassium 3.8 mMol/L (3.4-5.1); Sodium 142 mMol/L (136-145); Total Protein 5.6 gm/dL (5.7-8.2); eGFR > 60 See Note
== END | disposition home or self-care (01) ==
LOC: SCTO 14:07
PROVIDERS: PCP Family Medicine; Referring Provider Internal Medicine Hematology & Oncology; Visit Provider Internal Medicine Hematology & Oncology
DX: C25.9 Malignant neoplasm of pancreas, unspecified (principal); C90.00 Multiple myeloma not having achieved remission; R77.9 Abnormality of plasma protein, unspecified
CPT/HCPCS: 36415; 80053; 85025

== ENCOUNTER → 2025-02-05 | Outpatient (CLI) | payer MEDICARE, MEDICAID, SELFPAY ==
[2025-02-05 15:49] LABS: Basophils # (Auto) 0.0 Thou/mm3 (0.0-0.2); Basophils % (Auto) 0 % (0-2.5); Eosinophils # (Auto) 0.1 Thou/mm3 (0.0-0.5); Eosinophils % (Auto) 3 % (0-10); Hematocrit 29.5 % (41.0-53.0); Hemoglobin 10.2 g/dL (13.5-16.0); Immature Granulocytes Auto 0.01 Thou/mm3 (0.00-0.00); Lymphocytes # (Auto) 0.8 Thou/mm3 (1.0-4.8); Lymphocytes % (Auto) 25 % (10-50); Mean Corpuscular HGB Conc 34.6 g/dl (31.0-37.0); Mean Corpuscular Hemoglobin 33.6 pg (25.0-35.0); Mean Corpuscular Volume 97 fL (80-100); Monocytes # (Auto) 0.3 Thou/mm3 (0.0-0.8); Monocytes % (Auto) 11 % (0-12); Neutrophils # (Auto) 1.9 Thou/mm3 (1.8-7.7); Neutrophils % (Auto) 61 % (37-80); Nucleated Red Blood Cell # 0.00 Thou/mm3 (0.00-0.00); Nucleated Red Blood Cell % 0 /100 WBC (0); Platelet Count 125 Thou/mm3 (140-440); RDW Standard Deviation 53.3 fL (35.1-43.9); Red Blood Count 3.04 Miln/mm3 (4.50-5.90); White Blood Count 3.2 Thou/mm3 (3.8-10.6)
[2025-02-05 16:30] LABS: Alanine Aminotransferase 13 U/L (10-49); Albumin, Serum 3.9 gm/dL (3.4-4.8); Albumin/Globulin Ratio 2.2 (1.2-2.2); Alkaline Phosphatase 96 U/L (46-116); Anion Gap 9 (7-16); Aspartate Amino Transferase 15 U/L (0-34); BUN/Creatinine Ratio 16 Ratio (12-20); Bilirubin,Total 0.5 mg/dL (0.3-1.2); Blood Urea Nitrogen 16 mg/dL (9-23); Calcium 9.0 mg/dL (8.3-10.6); Calcium (Corrected) 9.1 mg/dL (8.5-10.1); Carbon Dioxide 27.2 mMol/L (20.0-31.0); Chloride 107 mMol/L (98-107); Creatinine (Component) 1.0 mg/dL (0.6-1.3); Globulin 1.8 gm/dL (2.3-3.5); Glucose 174 mg/dL (74-106); Osmolality,Calculated 290 (275-295); Potassium 3.9 mMol/L (3.4-5.1); Sodium 143 mMol/L (136-145); Total Protein 5.7 gm/dL (5.7-8.2); eGFR > 60 See Note
[2025-02-09 03:06] LABS: Albumin, Random Urine 100 %; Alpha 1 Globulin, Random Urine 0 %; Alpha 2 Globulin, Random Urine 0 %; Beta Globulin, Random Urine 0 %; Gamma Globulin, Random Urine 0 %; Protein,Total,Random Urine 7 mg/dL (5-25); Protein/Creatinine Ratio 95 mg/g creat (25-148)
[2025-02-09 06:57] LABS: Creatinine, Random Urine 74 mg/dL (20-320); Protein/Creatinine Ratio mg/mg 0.095 (0.025-0.148)
[2025-02-09 15:34] LABS: Abnormal protein band 1 0.4 g/dL (NONE DETECTED); Albumin 3.4 g/dL (3.8-4.8); Alpha-1-Globulin 0.3 g/dL (0.2-0.3); Alpha-2-Globulin 0.7 g/dL (0.5-0.9); Beta-1-Globulin 0.3 g/dL (0.4-0.6); Beta-2-globulin 0.2 g/dL (0.2-0.5); Gamma Globulin 0.5 g/dL (0.8-1.7); Immunoglobulin G 573 mg/dL (600-1540); Kappa Light Chain, Free 24.3 mg/L (3.3-19.4); Lambda Light Chain, Free 11.5 mg/L (5.7-26.3)
[2025-02-12 09:31] LABS: Beta 2 Microglobulin 2.45 mg/L (< OR = 2.51); Immunoglobulin A 12 mg/dL (70-320); Immunoglobulin M 16 mg/dL (50-300); Kappa/Lambda, Free Ratio 2.11 (0.26-1.65); Protein, total, serum 5.4 g/dL (6.1-8.1)
== END | disposition home or self-care (01) ==
LOC: SCTO 13:00
PROVIDERS: PCP Family Medicine; Referring Provider Internal Medicine Hematology & Oncology; Visit Provider Internal Medicine Hematology & Oncology
DX: C25.9 Malignant neoplasm of pancreas, unspecified (principal); C90.00 Multiple myeloma not having achieved remission; R77.9 Abnormality of plasma protein, unspecified
CPT/HCPCS: 36415; 80053; 82232; 82570; 82784; 83521; 84155; 84156; 84165; 84166; 85025; 86334

== ENCOUNTER → 2025-02-12 | Outpatient (CLI) | payer MEDICARE, MEDICAID, SELFPAY ==
[2025-02-12 15:29] LABS: Basophils # (Auto) 0.0 Thou/mm3 (0.0-0.2); Basophils % (Auto) 1 % (0-2.5); Eosinophils # (Auto) 0.1 Thou/mm3 (0.0-0.5); Eosinophils % (Auto) 2 % (0-10); Hematocrit 29.3 % (41.0-53.0); Hemoglobin 10.1 g/dL (13.5-16.0); Immature Granulocytes Auto 0.01 Thou/mm3 (0.00-0.00); Lymphocytes # (Auto) 0.6 Thou/mm3 (1.0-4.8); Lymphocytes % (Auto) 15 % (10-50); Mean Corpuscular HGB Conc 34.5 g/dl (31.0-37.0); Mean Corpuscular Hemoglobin 33.2 pg (25.0-35.0); Mean Corpuscular Volume 96 fL (80-100); Monocytes # (Auto) 0.4 Thou/mm3 (0.0-0.8); Monocytes % (Auto) 9 % (0-12); Neutrophils # (Auto) 3.0 Thou/mm3 (1.8-7.7); Neutrophils % (Auto) 73 % (37-80); Nucleated Red Blood Cell # 0.00 Thou/mm3 (0.00-0.00); Nucleated Red Blood Cell % 0 /100 WBC (0); Platelet Count 156 Thou/mm3 (140-440); RDW Standard Deviation 54.4 fL (35.1-43.9); Red Blood Count 3.04 Miln/mm3 (4.50-5.90); White Blood Count 4.2 Thou/mm3 (3.8-10.6)
[2025-02-12 15:45] LABS: Alanine Aminotransferase 13 U/L (10-49); Albumin, Serum 4.2 gm/dL (3.4-4.8); Albumin/Globulin Ratio 2.3 (1.2-2.2); Alkaline Phosphatase 93 U/L (46-116); Anion Gap 9 (7-16); Aspartate Amino Transferase 14 U/L (0-34); BUN/Creatinine Ratio 14 Ratio (12-20); Bilirubin,Total 0.6 mg/dL (0.3-1.2); Blood Urea Nitrogen 15 mg/dL (9-23); Calcium 9.1 mg/dL (8.3-10.6); Calcium (Corrected) 9.1 mg/dL (8.5-10.1); Carbon Dioxide 25.7 mMol/L (20.0-31.0); Chloride 108 mMol/L (98-107); Creatinine (Component) 1.1 mg/dL (0.6-1.3); Globulin 1.8 gm/dL (2.3-3.5); Glucose 102 mg/dL (74-106); Osmolality,Calculated 285 (275-295); Potassium 3.8 mMol/L (3.4-5.1); Sodium 143 mMol/L (136-145); Total Protein 6.0 gm/dL (5.7-8.2); eGFR > 60 See Note
[2025-02-16 03:03] LABS: Albumin, Random Urine 100 %; Alpha 1 Globulin, Random Urine 0 %; Alpha 2 Globulin, Random Urine 0 %; Beta Globulin, Random Urine 0 %; Gamma Globulin, Random Urine 0 %; Protein,Total,Random Urine 16 mg/dL (5-25); Protein/Creatinine Ratio 123 mg/g creat (25-148)
[2025-02-16 05:05] LABS: Creatinine, Random Urine 131 mg/dL (20-320); Protein/Creatinine Ratio mg/mg 0.123 (0.025-0.148)
[2025-02-17 22:08] LABS: Abnormal protein band 1 0.3 g/dL (NONE DETECTED); Albumin 3.7 g/dL (3.8-4.8); Alpha-1-Globulin 0.3 g/dL (0.2-0.3); Alpha-2-Globulin 0.8 g/dL (0.5-0.9); Beta-1-Globulin 0.3 g/dL (0.4-0.6); Beta-2-globulin 0.2 g/dL (0.2-0.5); Gamma Globulin 0.6 g/dL (0.8-1.7); Immunoglobulin G 664 mg/dL (600-1540); Kappa Light Chain, Free 39.4 mg/L (3.3-19.4); Lambda Light Chain, Free 24.2 mg/L (5.7-26.3)
[2025-02-19 07:43] LABS: Beta 2 Microglobulin 3.07 mg/L (< OR = 2.51); Immunoglobulin A 20 mg/dL (70-320); Immunoglobulin M 17 mg/dL (50-300); Kappa/Lambda, Free Ratio 1.63 (0.26-1.65); Protein, total, serum 5.9 g/dL (6.1-8.1)
== END | disposition home or self-care (01) ==
LOC: SCTO 14:07
PROVIDERS: PCP Family Medicine; Referring Provider Internal Medicine Hematology & Oncology; Visit Provider Internal Medicine Hematology & Oncology
DX: C25.9 Malignant neoplasm of pancreas, unspecified (principal); R77.9 Abnormality of plasma protein, unspecified; C90.00 Multiple myeloma not having achieved remission
CPT/HCPCS: 36415; 80053; 82232; 82570; 82784; 83521; 84155; 84156; 84165; 84166; 85025; 86334

== ENCOUNTER → 2025-02-19 | Outpatient (CLI) | payer MEDICARE, MEDICAID, SELFPAY ==
[2025-02-19 09:45] LABS: Alanine Aminotransferase 16 U/L (10-49); Albumin, Serum 4.0 gm/dL (3.4-4.8); Albumin/Globulin Ratio 2.1 (1.2-2.2); Alkaline Phosphatase 80 U/L (46-116); Anion Gap 10 (7-16); Aspartate Amino Transferase 14 U/L (0-34); BUN/Creatinine Ratio 18 Ratio (12-20); Bilirubin,Total 0.5 mg/dL (0.3-1.2); Blood Urea Nitrogen 18 mg/dL (9-23); Calcium 8.9 mg/dL (8.3-10.6); Calcium (Corrected) 8.9 mg/dL (8.5-10.1); Carbon Dioxide 26.6 mMol/L (20.0-31.0); Cardiac Risk Estimate 1.9 RATIO (4.0-6.7); Chloride 104 mMol/L (98-107); Cholesterol 112 mg/dL (132-200); Creatinine (Component) 1.0 mg/dL (0.6-1.3); Globulin 1.9 gm/dL (2.3-3.5); Glucose 117 mg/dL (74-106); HDL Cholesterol 58 mg/dL (40-60); LDL Cholesterol,Calculated 33 mg/dL (0-130); Osmolality,Calculated 284 (275-295); Potassium 4.1 mMol/L (3.4-5.1); Sodium 141 mMol/L (136-145); Total Protein 5.9 gm/dL (5.7-8.2); Triglycerides 106 mg/dL (30-150); eGFR > 60 See Note
[2025-02-19 09:46] LABS: Basophils # (Auto) 0.0 Thou/mm3 (0.0-0.2); Basophils % (Auto) 0 % (0-2.5); Eosinophils # (Auto) 0.2 Thou/mm3 (0.0-0.5); Eosinophils % (Auto) 4 % (0-10); Hematocrit 31.6 % (41.0-53.0); Hemoglobin 10.5 g/dL (13.5-16.0); Immature Granulocytes Auto 0.02 Thou/mm3 (0.00-0.00); Lymphocytes # (Auto) 0.7 Thou/mm3 (1.0-4.8); Lymphocytes % (Auto) 17 % (10-50); Mean Corpuscular HGB Conc 33.2 g/dl (31.0-37.0); Mean Corpuscular Hemoglobin 33.8 pg (25.0-35.0); Mean Corpuscular Volume 102 fL (80-100); Monocytes # (Auto) 0.6 Thou/mm3 (0.0-0.8); Monocytes % (Auto) 14 % (0-12); Neutrophils # (Auto) 2.6 Thou/mm3 (1.8-7.7); Neutrophils % (Auto) 64 % (37-80); Nucleated Red Blood Cell # 0.00 Thou/mm3 (0.00-0.00); Nucleated Red Blood Cell % 0 /100 WBC (0); Platelet Count 137 Thou/mm3 (140-440); RDW Standard Deviation 55.4 fL (35.1-43.9); Red Blood Count 3.11 Miln/mm3 (4.50-5.90); White Blood Count 4.2 Thou/mm3 (3.8-10.6)
== END | disposition home or self-care (01) ==
LOC: SCTO 08:41
PROVIDERS: PCP Family Medicine; Referring Provider Internal Medicine Hematology & Oncology; Visit Provider Internal Medicine Hematology & Oncology
DX: D64.9 Anemia, unspecified (principal); D72.819 Decreased white blood cell count, unspecified; E78.2 Mixed hyperlipidemia; I10 Essential (primary) hypertension; R77.9 Abnormality of plasma protein, unspecified; C25.9 Malignant neoplasm of pancreas, unspecified; C90.00 Multiple myeloma not having achieved remission
CPT/HCPCS: 36415; 80053; 80061; 85025

== ENCOUNTER → 2025-02-26 | Outpatient (CLI) | payer MEDICARE, MEDICAID, SELFPAY ==
[2025-02-26 15:46] LABS: Basophils # (Auto) 0.0 Thou/mm3 (0.0-0.2); Basophils % (Auto) 0 % (0-2.5); Eosinophils # (Auto) 0.1 Thou/mm3 (0.0-0.5); Eosinophils % (Auto) 3 % (0-10); Hematocrit 30.4 % (41.0-53.0); Hemoglobin 10.0 g/dL (13.5-16.0); Immature Granulocytes Auto 0.01 Thou/mm3 (0.00-0.00); Lymphocytes # (Auto) 0.6 Thou/mm3 (1.0-4.8); Lymphocytes % (Auto) 17 % (10-50); Mean Corpuscular HGB Conc 32.9 g/dl (31.0-37.0); Mean Corpuscular Hemoglobin 32.9 pg (25.0-35.0); Mean Corpuscular Volume 100 fL (80-100); Monocytes # (Auto) 0.6 Thou/mm3 (0.0-0.8); Monocytes % (Auto) 17 % (0-12); Neutrophils # (Auto) 2.5 Thou/mm3 (1.8-7.7); Neutrophils % (Auto) 63 % (37-80); Nucleated Red Blood Cell # 0.00 Thou/mm3 (0.00-0.00); Nucleated Red Blood Cell % 0 /100 WBC (0); Platelet Count 182 Thou/mm3 (140-440); RDW Standard Deviation 54.7 fL (35.1-43.9); Red Blood Count 3.04 Miln/mm3 (4.50-5.90); White Blood Count 3.9 Thou/mm3 (3.8-10.6)
[2025-02-26 16:03] LABS: Alanine Aminotransferase 16 U/L (10-49); Albumin, Serum 3.8 gm/dL (3.4-4.8); Albumin/Globulin Ratio 2.1 (1.2-2.2); Alkaline Phosphatase 84 U/L (46-116); Anion Gap 5 (7-16); Aspartate Amino Transferase 15 U/L (0-34); BUN/Creatinine Ratio 20 Ratio (12-20); Bilirubin,Total 0.3 mg/dL (0.3-1.2); Blood Urea Nitrogen 22 mg/dL (9-23); Calcium 8.8 mg/dL (8.3-10.6); Calcium (Corrected) 9.0 mg/dL (8.5-10.1); Carbon Dioxide 27.8 mMol/L (20.0-31.0); Chloride 105 mMol/L (98-107); Creatinine (Component) 1.1 mg/dL (0.6-1.3); Globulin 1.8 gm/dL (2.3-3.5); Glucose 117 mg/dL (74-106); Osmolality,Calculated 279 (275-295); Potassium 4.6 mMol/L (3.4-5.1); Sodium 138 mMol/L (136-145); Total Protein 5.6 gm/dL (5.7-8.2); eGFR > 60 See Note
[2025-03-01 23:35] LABS: Albumin, Random Urine 100 %; Alpha 1 Globulin, Random Urine 0 %; Alpha 2 Globulin, Random Urine 0 %; Beta Globulin, Random Urine 0 %; Gamma Globulin, Random Urine 0 %; Protein,Total,Random Urine 10 mg/dL (5-25); Protein/Creatinine Ratio 120 mg/g creat (25-148)
[2025-03-02 06:22] LABS: Creatinine, Random Urine 84 mg/dL (20-320); Protein/Creatinine Ratio mg/mg 0.120 (0.025-0.148)
[2025-03-06 23:35] LABS: Abnormal protein band 1 0.2 g/dL (NONE DETECTED); Abnormal protein band 2 0.1 g/dL (NONE DETECTED); Albumin 3.4 g/dL (3.8-4.8); Alpha-1-Globulin 0.3 g/dL (0.2-0.3); Alpha-2-Globulin 0.8 g/dL (0.5-0.9); Beta-1-Globulin 0.3 g/dL (0.4-0.6); Beta-2-globulin 0.2 g/dL (0.2-0.5); Gamma Globulin 0.6 g/dL (0.8-1.7); Immunoglobulin G 737 mg/dL (600-1540); Kappa Light Chain, Free 22.7 mg/L (3.3-19.4); Lambda Light Chain, Free 15.8 mg/L (5.7-26.3)
[2025-03-07 06:26] LABS: Beta 2 Microglobulin 2.41 mg/L (< OR = 2.51); Immunoglobulin A 19 mg/dL (70-320); Immunoglobulin M 15 mg/dL (50-300); Kappa/Lambda, Free Ratio 1.44 (0.26-1.65); Protein, total, serum 5.7 g/dL (6.1-8.1)
== END | disposition home or self-care (01) ==
PROVIDERS: PCP Family Medicine; Referring Provider Internal Medicine Hematology & Oncology; Visit Provider Internal Medicine Hematology & Oncology
DX: C25.9 Malignant neoplasm of pancreas, unspecified (principal); C90.00 Multiple myeloma not having achieved remission; R77.9 Abnormality of plasma protein, unspecified
CPT/HCPCS: 36415; 80053; 82232; 82570; 82784; 83521; 84155; 84156; 84165; 84166; 85025; 86334

== ENCOUNTER 2025-02-27 14:24 | Outpatient (RCR) | payer MEDICARE, MEDICAID, SELFPAY | END 2025-03-01 23:59 | disposition home or self-care (01) | LOC: SCTC 14:24 | PROVIDERS: PCP Family Medicine; Referring Provider Family Medicine; Visit Provider Internal Medicine Hematology & Oncology | DX: Z51.11 Encounter for antineoplastic chemotherapy (principal); C90.00 Multiple myeloma not having achieved remission; G89.3 Neoplasm related pain (acute) (chronic); Z85.828 Personal history of other malignant neoplasm of skin; L98.8 Other specified disorders of the skin and subcutaneous tissue | CPT/HCPCS: 96401; A4216; J9041 ==

== ENCOUNTER → 2025-03-05 | Outpatient (CLI) | payer MEDICARE, MEDICAID, SELFPAY ==
[2025-03-05 12:18] LABS: Basophils # (Auto) 0.0 Thou/mm3 (0.0-0.2); Basophils % (Auto) 1 % (0-2.5); Eosinophils # (Auto) 0.1 Thou/mm3 (0.0-0.5); Eosinophils % (Auto) 1 % (0-10); Hematocrit 32.5 % (41.0-53.0); Hemoglobin 10.8 g/dL (13.5-16.0); Immature Granulocytes Auto 0.02 Thou/mm3 (0.00-0.00); Lymphocytes # (Auto) 0.7 Thou/mm3 (1.0-4.8); Lymphocytes % (Auto) 12 % (10-50); Mean Corpuscular HGB Conc 33.2 g/dl (31.0-37.0); Mean Corpuscular Hemoglobin 33.0 pg (25.0-35.0); Mean Corpuscular Volume 99 fL (80-100); Monocytes # (Auto) 0.7 Thou/mm3 (0.0-0.8); Monocytes % (Auto) 13 % (0-12); Neutrophils # (Auto) 4.0 Thou/mm3 (1.8-7.7); Neutrophils % (Auto) 74 % (37-80); Nucleated Red Blood Cell # 0.00 Thou/mm3 (0.00-0.00); Nucleated Red Blood Cell % 0 /100 WBC (0); Platelet Count 189 Thou/mm3 (140-440); RDW Standard Deviation 53.5 fL (35.1-43.9); Red Blood Count 3.27 Miln/mm3 (4.50-5.90); White Blood Count 5.5 Thou/mm3 (3.8-10.6)
[2025-03-05 13:40] LABS: Alanine Aminotransferase 14 U/L (10-49); Albumin, Serum 4.4 gm/dL (3.4-4.8); Albumin/Globulin Ratio 2.3 (1.2-2.2); Alkaline Phosphatase 89 U/L (46-116); Anion Gap 9 (7-16); Aspartate Amino Transferase 14 U/L (0-34); BUN/Creatinine Ratio 17 Ratio (12-20); Bilirubin,Total 0.4 mg/dL (0.3-1.2); Blood Urea Nitrogen 19 mg/dL (9-23); Calcium 10.0 mg/dL (8.3-10.6); Calcium (Corrected) 10.0 mg/dL (8.5-10.1); Carbon Dioxide 25.9 mMol/L (20.0-31.0); Chloride 105 mMol/L (98-107); Creatinine (Component) 1.1 mg/dL (0.6-1.3); Globulin 1.9 gm/dL (2.3-3.5); Glucose 106 mg/dL (74-106); Osmolality,Calculated 281 (275-295); Potassium 3.8 mMol/L (3.4-5.1); Sodium 140 mMol/L (136-145); Total Protein 6.3 gm/dL (5.7-8.2); eGFR > 60 See Note
== END | disposition home or self-care (01) ==
PROVIDERS: PCP Family Medicine; Referring Provider Internal Medicine Rheumatology; Visit Provider Internal Medicine Hematology & Oncology
DX: C25.9 Malignant neoplasm of pancreas, unspecified (principal); R77.9 Abnormality of plasma protein, unspecified; C90.00 Multiple myeloma not having achieved remission
CPT/HCPCS: 36415; 80053; 85025

== ENCOUNTER → 2025-03-12 | Outpatient (CLI) | payer MEDICARE, MEDICAID, SELFPAY ==
[2025-03-12 13:30] LABS: Basophils # (Auto) 0.0 Thou/mm3 (0.0-0.2); Basophils % (Auto) 0 % (0-2.5); Eosinophils # (Auto) 0.2 Thou/mm3 (0.0-0.5); Eosinophils % (Auto) 3 % (0-10); Hematocrit 31.3 % (41.0-53.0); Hemoglobin 10.8 g/dL (13.5-16.0); Immature Granulocytes Auto 0.02 Thou/mm3 (0.00-0.00); Lymphocytes # (Auto) 0.6 Thou/mm3 (1.0-4.8); Lymphocytes % (Auto) 10 % (10-50); Mean Corpuscular HGB Conc 34.5 g/dl (31.0-37.0); Mean Corpuscular Hemoglobin 33.5 pg (25.0-35.0); Mean Corpuscular Volume 97 fL (80-100); Monocytes # (Auto) 0.4 Thou/mm3 (0.0-0.8); Monocytes % (Auto) 7 % (0-12); Neutrophils # (Auto) 4.6 Thou/mm3 (1.8-7.7); Neutrophils % (Auto) 80 % (37-80); Nucleated Red Blood Cell # 0.00 Thou/mm3 (0.00-0.00); Nucleated Red Blood Cell % 0 /100 WBC (0); Platelet Count 167 Thou/mm3 (140-440); RDW Standard Deviation 53.2 fL (35.1-43.9); Red Blood Count 3.22 Miln/mm3 (4.50-5.90); White Blood Count 5.7 Thou/mm3 (3.8-10.6)
[2025-03-12 13:47] LABS: Alanine Aminotransferase 12 U/L (10-49); Albumin, Serum 4.2 gm/dL (3.4-4.8); Albumin/Globulin Ratio 2.3 (1.2-2.2); Alkaline Phosphatase 81 U/L (46-116); Anion Gap 9 (7-16); Aspartate Amino Transferase 10 U/L (0-34); BUN/Creatinine Ratio 15 Ratio (12-20); Bilirubin,Total 0.4 mg/dL (0.3-1.2); Blood Urea Nitrogen 16 mg/dL (9-23); Calcium 9.1 mg/dL (8.3-10.6); Calcium (Corrected) 9.1 mg/dL (8.5-10.1); Carbon Dioxide 26.7 mMol/L (20.0-31.0); Chloride 104 mMol/L (98-107); Creatinine (Component) 1.1 mg/dL (0.6-1.3); Globulin 1.8 gm/dL (2.3-3.5); Glucose 143 mg/dL (74-106); Osmolality,Calculated 282 (275-295); Potassium 3.9 mMol/L (3.4-5.1); Sodium 140 mMol/L (136-145); Total Protein 6.0 gm/dL (5.7-8.2); eGFR > 60 See Note
[2025-03-16 03:06] LABS: Albumin, Random Urine 100 %; Alpha 1 Globulin, Random Urine 0 %; Alpha 2 Globulin, Random Urine 0 %; Beta Globulin, Random Urine 0 %; Gamma Globulin, Random Urine 0 %; Protein,Total,Random Urine 16 mg/dL (5-25); Protein/Creatinine Ratio 133 mg/g creat (25-148)
[2025-03-16 06:46] LABS: Creatinine, Random Urine 121 mg/dL (20-320); Protein/Creatinine Ratio mg/mg 0.133 (0.025-0.148)
[2025-03-17 19:48] LABS: Abnormal protein band 1 0.2 g/dL (NONE DETECTED); Albumin 3.4 g/dL (3.8-4.8); Alpha-1-Globulin 0.3 g/dL (0.2-0.3); Alpha-2-Globulin 0.8 g/dL (0.5-0.9); Beta-1-Globulin 0.3 g/dL (0.4-0.6); Beta-2-globulin 0.2 g/dL (0.2-0.5); Gamma Globulin 0.5 g/dL (0.8-1.7); Immunoglobulin G 617 mg/dL (600-1540); Kappa Light Chain, Free 18.9 mg/L (3.3-19.4); Lambda Light Chain, Free 14.4 mg/L (5.7-26.3)
[2025-03-19 06:56] LABS: Beta 2 Microglobulin 2.57 mg/L (< OR = 2.51); Immunoglobulin A 22 mg/dL (70-320); Immunoglobulin M 12 mg/dL (50-300); Kappa/Lambda, Free Ratio 1.31 (0.26-1.65); Protein, total, serum 5.7 g/dL (6.1-8.1)
== END | disposition home or self-care (01) ==
LOC: SCTO 12:58
PROVIDERS: PCP Family Medicine; Referring Provider Internal Medicine Hematology & Oncology; Visit Provider Internal Medicine Hematology & Oncology
DX: C25.9 Malignant neoplasm of pancreas, unspecified (principal); R77.9 Abnormality of plasma protein, unspecified; C90.00 Multiple myeloma not having achieved remission
CPT/HCPCS: 36415; 80053; 82232; 82570; 82784; 83521; 84155; 84156; 84165; 84166; 85025; 86334

== ENCOUNTER 2025-03-15 11:37 | Outpatient (RCR) | payer MEDICARE, MEDICAID, SELFPAY ==
--- NOTE | 2025-03-15 13:21 | CTCFLWUP_ITS ---
Patient: BRISEYDA WALSH : 1950 Page 2 of 2 FOLLOW UP NOTE DATE OF SERVICE: 03/15/2025 NAME: BRISEYDA WALSH ACCOUNT: [id number] : 1950 AGE: 74 INTERVAL HISTORY: Patient is having neuropathy and numbness . requesting to stop velcade .also feel tired ONCOLOGY HISTORY: DIAGNOSIS: Malignant neoplasm of pancreas, unspecified [ICD10] C25.9; Abnormality of plasma protein, unspecified [ICD10] R77.9; Multiple myeloma not having achieved remission [ICD10] C90.00 DATE OF DIAGNOSIS: 10/04/2024 STAGE/TNM: 80 percent myeloma cells. TREATMENT HISTORY: Care?Plan Start?Date Cycle Day Intent VRd?low?dex?he 11/06/2024 1 21 Palliative zometa?q?30?days,?q?90?days?for?bone?mets 03/06/2025 1 90 Palliative HISTORY OF PRESENT ILLNESS: Patient with myeloma for follow up. Had radiation and has been on vcd low dose. Unable to tolerate velcade and steroids /. 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 Tobacco?Use?Years:?25 Tobacco?Use:?FORMER?SMOKER ETOH?Use:?DENIES Drug?Note:?DENIES MEDICATIONS: 1. acetaminophen-codeine - 300-30 mg 1 tab Q6 2. acyclovir - 400 mg 1 tab TWICE A DAY 3. Aspir-Low - 81 mg 1 tab Daily 4. atorvastatin - 40 mg 1 tab Daily 5. Compazine - 5 mg 5 mg Daily 6. dexamethasone - 4 mg 5 tab Daily 7. doxazosin - 8 mg 1 tab Daily 8. lisinopril - 2.5 mg 1 tab Daily 9. omeprazole magnesium - 20 mg 1 tab Daily 10. ondansetron - 8 mg 8 mg Daily 11. REVLIMID - 25 mg 1 Capsule Daily 12. Senokot-S - 8.6-50 mg 2 tab twice a day Medications Last Reconciled by Nelida Duvall MD on 03/15/2025 ALLERGIES: No Known Drug Allergies REVIEW OF SYSTEMS: A complete 14-point review of systems was performed and is negative except as noted in interval history. PHYSICAL EXAMINATION: VITAL SIGNS: PAIN: 0 - No pain ECOG Performance Status: 1 - Symptomatic; ambulatory; restricted in strenuous activity GENERAL APPEARANCE: Appears well, in no apparent distress, appropriately interactive. HEENT: Normocephalic, no temporal wasting, normal conjunctiva, no scleral icterus, normal hearing, lips without lesions, neck normal range of motion. CARDIOVASCULAR: Not assessed. PULMONARY: Normal respiratory effort, no respiratory distress or use of accessory muscles, speaking in full sentences, no tachypnea. EXTREMITIES: No pedal edema or cyanosis. SKIN: Normal skin appearance. NEUROLOGIC: Alert and oriented x4. PSHYCHIATRIC: Appropriate affect, mood normal, behavior normal, intact thought and speech. LABORATORY DATA: I have personally reviewed and interpreted each of the patient?s relevant lab tests, abnormal findings are below: Date 03/05/25 03/12/25 ??WHITE?BLOOD?COUNT?(Thou/mm3) 5.5 5.7 ??RED?BLOOD?COUNT?(Miln/mm3) 3.27?L 3.22?L ??HEMOGLOBIN?(gm/dl) 10.8?L 10.8?L ??HEMATOCRIT?(%) 32.5?L 31.3?L ??PLATELET?COUNT?(Thou/mm3) 189 167 ??NEUTROPHILS?%,?AUTO?(%) 74 80 ??LYMPH?%,?AUTO?(%) 12 10 ??NEUTROPHILS,?AUTO?(Thou/mm3) 4.0 4.6 ??GLUCOSE,RANDOM?(mg/dL) 106 143?H ??BLOOD?UREA?NITROGEN?(mg/dL) 19 16 ??CREATININE?(mg/dL) 1.10 1.10 ??SODIUM?(mmol/L) 140 140 ??POTASSIUM?(mmol/L) 3.8 3.9 ??CHLORIDE?(mmol/L) 105 104 ??CrCl?(CandG)?(ml/min) 55.20 54.76 ??AST/SGOT?(Unit/L) 14 10 ??ALT/SGPT?(Unit/L) 14 12 ??ALKALINE?PHOSPHATASE?(Unit/L) 89 81 ??BILIRUBIN,?TOTAL?(mg/dL) 0.4 0.4 ??PROTEIN?TOTAL?(gm/dl) 6.3 6.0 ??ALBUMIN,?SERUM?(gm/dl) 4.4 4.2 ??GLOBULIN?(gm/dl) 1.9?L 1.8?L ??ALBUMIN/GLOBULIN?RATIO 2.3?H 2.3?H ??CALCIUM,?SERUM?(mg/dL) 10.0 9.1 ??CALCIUM?SERUM?(CORRECTED)?(mg/dL) 10.0 9.1 ASSESSMENT/PLAN: Multiple myeloma On vcd Will stop velcade and dexamethasone and cont revalmid Calcium and vit d3 Will do anemia workup . Cont Zometa every 3 months Donnelly for myeloma Rtc in 3 months ORDERS: Order # Description [id number] + MD Follow Up 3 Months [id number] Serum Protein Electrophoresis + Serum Immunofixation Electrophoresis + Beta-2 Microglobulin + Quant Immunoglobulins + Free kappa and lambda light chains plus ratio, quantitative + Urine Protien Electrophoresis + Urine Immunification Electrophoresis [id number] RETURN TO CLINIC: I reviewed the diagnosis, prognosis, and recommended treatment/procedure options with the patient (and/or their legal welding equipment sales representative), including the potential benefits, risks, side effects and alternative therapies. We also discussed the option of no treatment and the possibility of clinical trial participation, if applicable. All questions were addressed, and they demonstrated understanding. They provided informed consent to proceed with the proposed plan of care. BILLING AND COMPLIANCE: I reviewed external records from providers outside my specialty as summarized above. I spent a total of 50 minutes on this patient?s care on the day of their visit excluding time spent related to any billed procedures. This time includes time spent with the patient as well as time spent documenting in the medical record, reviewing patients records and tests, obtaining history, placing orders, communicating with other healthcare professionals, counseling the patient, family or caregiver, and/or care coordination for the diagnoses above. Electronically Signed by: Rebel Hatch MD T: 1:19 PM CC: Ricki?Jillian? PCP: Lex Atkins Referring: Lex Atkins This document was completed utilizing speech recognition software. Grammatical errors, random word insertions, pronoun errors, and incomplete sentences are an occasional consequence of this system due to software limitations, ambient noise, and hardware issues. Any formal questions or concerns about the content, text or information contained within the body of this dictation should be directly addressed to the provider for clarification.
== END 2025-04-01 23:59 | disposition home or self-care (01) ==
LOC: SCTC 11:37
PROVIDERS: PCP Family Medicine; Referring Provider Family Medicine; Visit Provider Internal Medicine Hematology & Oncology
DX: Z51.11 Encounter for antineoplastic chemotherapy (principal); C90.00 Multiple myeloma not having achieved remission; G62.9 Polyneuropathy, unspecified; R20.0 Anesthesia of skin
CPT/HCPCS: 96361; 96365; 96367; 96401; 99212; A4216; J1100; J2405; J3489; J7050; J9041; G0463

== ENCOUNTER → 2025-05-14 | Outpatient (CLI) | payer MEDICARE, MEDICAID, SELFPAY ==
[2025-05-14 09:24] LABS: Basophils # (Auto) 0.0 Thou/mm3 (0.0-0.2); Basophils % (Auto) 0 % (0-2.5); Eosinophils # (Auto) 0.2 Thou/mm3 (0.0-0.5); Eosinophils % (Auto) 4 % (0-10); Hematocrit 30.1 % (41.0-53.0); Hemoglobin 10.3 g/dL (13.5-16.0); Immature Granulocytes Auto 0.02 Thou/mm3 (0.00-0.00); Lymphocytes # (Auto) 0.6 Thou/mm3 (1.0-4.8); Lymphocytes % (Auto) 12 % (10-50); Mean Corpuscular HGB Conc 34.2 g/dl (31.0-37.0); Mean Corpuscular Hemoglobin 32.2 pg (25.0-35.0); Mean Corpuscular Volume 94 fL (80-100); Monocytes # (Auto) 0.7 Thou/mm3 (0.0-0.8); Monocytes % (Auto) 13 % (0-12); Neutrophils # (Auto) 3.5 Thou/mm3 (1.8-7.7); Neutrophils % (Auto) 70 % (37-80); Nucleated Red Blood Cell # 0.00 Thou/mm3 (0.00-0.00); Nucleated Red Blood Cell % 0 /100 WBC (0); Platelet Count 149 Thou/mm3 (140-440); RDW Standard Deviation 50.0 fL (35.1-43.9); Red Blood Count 3.20 Miln/mm3 (4.50-5.90); White Blood Count 5.0 Thou/mm3 (3.8-10.6)
[2025-05-14 10:22] LABS: Alanine Aminotransferase 13 U/L (10-49); Albumin, Serum 4.1 gm/dL (3.4-4.8); Albumin/Globulin Ratio 2.2 (1.2-2.2); Alkaline Phosphatase 71 U/L (46-116); Anion Gap 12 (7-16); Aspartate Amino Transferase 18 U/L (0-34); BUN/Creatinine Ratio 18 Ratio (12-20); Bilirubin,Total 0.6 mg/dL (0.3-1.2); Blood Urea Nitrogen 16 mg/dL (9-23); Calcium 9.0 mg/dL (8.3-10.6); Calcium (Corrected) 9.0 mg/dL (8.5-10.1); Carbon Dioxide 25.7 mMol/L (20.0-31.0); Cardiac Risk Estimate 2.0 RATIO (4.0-6.7); Chloride 104 mMol/L (98-107); Cholesterol 99 mg/dL (132-200); Creatinine (Component) 0.9 mg/dL (0.6-1.3); Globulin 1.9 gm/dL (2.3-3.5); Glucose 110 mg/dL (74-106); HDL Cholesterol 50 mg/dL (40-60); LDL Cholesterol,Calculated 38 mg/dL (0-130); Osmolality,Calculated 285 (275-295); Potassium 3.2 mMol/L (3.4-5.1); Sodium 142 mMol/L (136-145); Total Protein 6.0 gm/dL (5.7-8.2); Triglycerides 54 mg/dL (30-150); Uric Acid 4.0 mg/dL (3.7-9.2); eGFR > 60 See Note
[2025-05-14 10:24] LABS: Prostate Specific Antigen 2.50 ng/mL (0-4.00)
== END | disposition home or self-care (01) ==
PROVIDERS: PCP Family Medicine; Referring Provider Internal Medicine Hematology & Oncology; Visit Provider Family Medicine
DX: D64.9 Anemia, unspecified (principal); E78.2 Mixed hyperlipidemia; I10 Essential (primary) hypertension; E79.0 Hyperuricemia without signs of inflammatory arthritis and tophaceous disease; N40.1 Benign prostatic hyperplasia with lower urinary tract symptoms
CPT/HCPCS: 36415; 80053; 80061; 84153; 84550; 85025

== ENCOUNTER → 2025-05-16 | Outpatient (CLI) | payer MEDICARE, MEDICAID, SELFPAY ==
--- NOTE | 2025-05-16 14:20 | XR_ITS ---
Imitation: Bone densitometry Date and time of exam: May 16, 2025, 1446 hours Indication: Bone cancer diagnosis post radiation and chemotherapy calcium and vitamin D 6 months Technique: Lumbar spine and hip total bone mineralization values of an calculated. Peak reference and age match control results have been displayed. Findings: Lumbar spine total bone mineralization is 1.098 gm/cm2. This is 0.1 standard deviations above peak reference. This is 1.1 standard deviations above age-matched controls. Hip total bone mineralization is 0.947 gm/cm2 This is 0.8 standard deviations below peak reference. This is 0.0 standard deviations at age-matched controls Impression: There is normal mineralization taste on lumbar spine measurements. There is osteopenia based on hip measurements
== END | disposition home or self-care (01) ==
PROVIDERS: PCP Family Medicine; Referring Provider Family Medicine; Visit Provider Family Medicine
DX: M85.88 Other specified disorders of bone density and structure, other site (principal)
CPT/HCPCS: 77080

== ENCOUNTER 2025-05-23 11:04 | Outpatient (RCR) | payer MEDICARE, MEDICAID, SELFPAY ==
--- NOTE | 2025-05-23 13:19 | CTCFLWUP_ITS ---
Patient: BRISEYDA WALSH : 1950 Page 2 of 4 FOLLOW UP NOTE DATE OF SERVICE: 05/23/2025 NAME: BRISEYDA WALSH ACCOUNT: [id number] : 1950 AGE: 74 INTERVAL HISTORY: Patient was having worsening neuropathy and his Velcade and dexamethasone was stopped at the last visit. Patient says since then he is feeling little better but he still has symptoms in his feet. ONCOLOGY HISTORY: DIAGNOSIS: Malignant neoplasm of pancreas, unspecified [ICD10] C25.9; Abnormality of plasma protein, unspecified [ICD10] R77.9; Multiple myeloma not having achieved remission [ICD10] C90.00 DATE OF DIAGNOSIS: 10/04/2024 STAGE/TNM: 80 percent myeloma cells. TREATMENT HISTORY: Care?Plan Start?Date Cycle Day Intent VRd?low?dex?he 11/06/2024 1 21 Palliative zometa?q?30?days,?q?90?days?for?bone?mets 03/06/2025 1 90 Palliative HISTORY OF PRESENT ILLNESS: Patient with myeloma for follow up. Had radiation and has been on vcd low dose. Unable to tolerate velcade and steroids /. 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 Tobacco?Use?Years:?25 Tobacco?Use:?FORMER?SMOKER ETOH?Use:?DENIES Drug?Note:?DENIES MEDICATIONS: 1. acetaminophen-codeine - 300-30 mg 1 tab Q6 2. Aspir-Low - 81 mg 1 tab Daily 3. atorvastatin - 40 mg 1 tab Daily 4. Compazine - 5 mg 5 mg Daily 5. doxazosin - 8 mg 1 tab Daily 6. gabapentin - 100 mg 2 Capsule 2 capsule every 8 hrs for neuropathy 7. lisinopril - 2.5 mg 1 tab Daily 8. omeprazole magnesium - 20 mg 1 tab Daily 9. ondansetron - 8 mg 8 mg Daily 10. REVLIMID - 25 mg 1 Capsule Daily 11. Senokot-S - 8.6-50 mg 2 tab twice a day Medications Last Reconciled by Nelida Duvall MD on 05/23/2025 ALLERGIES: No Known Drug Allergies REVIEW OF SYSTEMS: A complete 14-point review of systems was performed and is negative except as noted in interval history. PHYSICAL EXAMINATION: VITAL SIGNS: Temperature?97.3, B/P?147/65, Oxygen?Saturation?99% Weight?150?lbs PAIN: 0 - No pain ECOG Performance Status: 0 - Asymptomatic and fully active GENERAL APPEARANCE: Appears well, in no apparent distress, appropriately interactive. HEENT: Normocephalic, no temporal wasting, normal conjunctiva, no scleral icterus, normal hearing, lips without lesions, neck normal range of motion. CARDIOVASCULAR: Not assessed. PULMONARY: Normal respiratory effort, no respiratory distress or use of accessory muscles, speaking in full sentences, no tachypnea. EXTREMITIES: No pedal edema or cyanosis. SKIN: Normal skin appearance. NEUROLOGIC: Alert and oriented x4. PSHYCHIATRIC: Appropriate affect, mood normal, behavior normal, intact thought and speech. LABORATORY DATA: I have personally reviewed and interpreted each of the patient?s relevant lab tests, abnormal findings are below: Date 03/12/25 05/14/25 ??WHITE?BLOOD?COUNT?(Thou/mm3) 5.7 5.0 ??RED?BLOOD?COUNT?(Miln/mm3) 3.22?L 3.20?L ??HEMOGLOBIN?(gm/dl) 10.8?L 10.3?L ??HEMATOCRIT?(%) 31.3?L 30.1?L ??PLATELET?COUNT?(Thou/mm3) 167 149 ??NEUTROPHILS?%,?AUTO?(%) 80 70 ??LYMPH?%,?AUTO?(%) 10 12 ??NEUTROPHILS,?AUTO?(Thou/mm3) 4.6 3.5 ??GLUCOSE,RANDOM?(mg/dL) 143?H 110?H ??BLOOD?UREA?NITROGEN?(mg/dL) 16 16 ??CREATININE?(mg/dL) 1.10 0.90 ??SODIUM?(mmol/L) 140 142 ??POTASSIUM?(mmol/L) 3.9 3.2?L ??CHLORIDE?(mmol/L) 104 104 ??CrCl?(CandG)?(ml/min) 54.76 65.85 ??AST/SGOT?(Unit/L) 10 18 ??ALT/SGPT?(Unit/L) 12 13 ??ALKALINE?PHOSPHATASE?(Unit/L) 81 71 ??BILIRUBIN,?TOTAL?(mg/dL) 0.4 0.6 ??PROTEIN?TOTAL?(gm/dl) 6.0 6.0 ??ALBUMIN,?SERUM?(gm/dl) 4.2 4.1 ??GLOBULIN?(gm/dl) 1.8?L 1.9?L ??ALBUMIN/GLOBULIN?RATIO 2.3?H 2.2 ??CALCIUM,?SERUM?(mg/dL) 9.1 9.0 ??CALCIUM?SERUM?(CORRECTED)?(mg/dL) 9.1 9.0 ASSESSMENT/PLAN: Multiple myeloma On vcd Stopped velcade and dexamethasone and cont revalmid Calcium and vit d3 Cont Zometa every 3 months Epps for myeloma for second opinion Rtc in 3 months ORDERS: Order # Description [id number] Serum Protein Electrophoresis + Serum Immunofixation Electrophoresis + Beta-2 Microglobulin + Quant Immunoglobulins + Free kappa and lambda light chains plus ratio, quantitative + Urine Immunification Electrophoresis + Serum Viscocity [id number] MD Follow Up 2 Week [id number] MD Follow Up 2 Week RETURN TO CLINIC: I reviewed the diagnosis, prognosis, and recommended treatment/procedure options with the patient (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 We also discussed the option of no treatment and the possibility of clinical trial participation, if applicable. All questions were addressed, and they demonstrated understanding. They provided informed consent to proceed with the proposed plan of care. BILLING AND COMPLIANCE: I reviewed external records from providers outside my specialty as summarized above. I spent a total of 50 minutes on this patient?s care on the day of their visit excluding time spent related to any billed procedures. This time includes time spent with the patient as well as time spent documenting in the medical record, reviewing patients records and tests, obtaining history, placing orders, communicating with other healthcare professionals, counseling the patient, family or caregiver, and/or care coordination for the diagnoses above. Electronically Signed by: Rebel Hatch MD T: 1:17 PM CC: Ricki?Jillian,? PCP: Lex Atkins Referring: Lex Atkins This document was completed utilizing speech recognition software. Grammatical errors, random word insertions, pronoun errors, and incomplete sentences are an occasional consequence of this system due to software limitations, ambient noise, and hardware issues. Any formal questions or concerns about the content, text or information contained within the body of this dictation should be directly addressed to the provider for clarification.
== END 2025-06-01 23:59 | disposition home or self-care (01) ==
LOC: SCTC 11:04
PROVIDERS: PCP Family Medicine; Referring Provider Family Medicine; Visit Provider Internal Medicine Hematology & Oncology
DX: C25.9 Malignant neoplasm of pancreas, unspecified (principal); C90.00 Multiple myeloma not having achieved remission; G62.0 Drug-induced polyneuropathy; T45.1X5D Adverse effect of antineoplastic and immunosuppressive drugs, subsequent encounter
CPT/HCPCS: 99212; G0463

== ENCOUNTER → 2025-06-04 | Outpatient (CLI) | payer MEDICARE, MEDICAID, SELFPAY ==
[2025-06-04 09:23] LABS: Misc Send Out* See Sep Rpt
[2025-06-04 10:28] LABS: Basophils # (Auto) 0.0 Thou/mm3 (0.0-0.2); Basophils % (Auto) 1 % (0-2.5); Eosinophils # (Auto) 0.2 Thou/mm3 (0.0-0.5); Eosinophils % (Auto) 5 % (0-10); Hematocrit 33.3 % (41.0-53.0); Hemoglobin 10.9 g/dL (13.5-16.0); Immature Granulocytes Auto 0.01 Thou/mm3 (0.00-0.00); Lymphocytes # (Auto) 0.7 Thou/mm3 (1.0-4.8); Lymphocytes % (Auto) 18 % (10-50); Mean Corpuscular HGB Conc 32.7 g/dl (31.0-37.0); Mean Corpuscular Hemoglobin 32.1 pg (25.0-35.0); Mean Corpuscular Volume 98 fL (80-100); Monocytes # (Auto) 0.2 Thou/mm3 (0.0-0.8); Monocytes % (Auto) 6 % (0-12); Neutrophils # (Auto) 2.6 Thou/mm3 (1.8-7.7); Neutrophils % (Auto) 70 % (37-80); Nucleated Red Blood Cell # 0.00 Thou/mm3 (0.00-0.00); Nucleated Red Blood Cell % 0 /100 WBC (0); Platelet Count 212 Thou/mm3 (140-440); RDW Standard Deviation 53.9 fL (35.1-43.9); Red Blood Count 3.40 Miln/mm3 (4.50-5.90); White Blood Count 3.7 Thou/mm3 (3.8-10.6)
[2025-06-04 10:38] LABS: Alanine Aminotransferase 17 U/L (10-49); Albumin, Serum 4.4 gm/dL (3.4-4.8); Albumin/Globulin Ratio 2.8 (1.2-2.2); Alkaline Phosphatase 75 U/L (46-116); Anion Gap 9 (7-16); Aspartate Amino Transferase 18 U/L (0-34); BUN/Creatinine Ratio 15 Ratio (12-20); Bilirubin,Total 0.4 mg/dL (0.3-1.2); Blood Urea Nitrogen 15 mg/dL (9-23); Calcium 9.5 mg/dL (8.3-10.6); Calcium (Corrected) 9.5 mg/dL (8.5-10.1); Carbon Dioxide 29.5 mMol/L (20.0-31.0); Chloride 104 mMol/L (98-107); Creatinine (Component) 1.0 mg/dL (0.6-1.3); Globulin 1.6 gm/dL (2.3-3.5); Glucose 106 mg/dL (74-106); Osmolality,Calculated 283 (275-295); Potassium 3.6 mMol/L (3.4-5.1); Sodium 142 mMol/L (136-145); Total Protein 6.0 gm/dL (5.7-8.2); eGFR > 60 See Note
[2025-06-07 01:42] LABS: Albumin, Random Urine 100 %; Alpha 1 Globulin, Random Urine 0 %; Alpha 2 Globulin, Random Urine 0 %; Beta Globulin, Random Urine 0 %; Gamma Globulin, Random Urine 0 %; Protein,Total,Random Urine 11 mg/dL (5-25); Protein/Creatinine Ratio 137 mg/g creat (25-148)
[2025-06-07 06:47] LABS: Creatinine, Random Urine 80 mg/dL (20-320); Protein/Creatinine Ratio mg/mg 0.137 (0.025-0.148)
[2025-06-09 23:36] LABS: Abnormal protein band 1 0.2 g/dL (NONE DETECTED); Albumin 3.6 g/dL (3.8-4.8); Alpha-1-Globulin 0.4 g/dL (0.2-0.3); Alpha-2-Globulin 0.9 g/dL (0.5-0.9); Beta-1-Globulin 0.3 g/dL (0.4-0.6); Beta-2-globulin 0.3 g/dL (0.2-0.5); Gamma Globulin 0.7 g/dL (0.8-1.7); Immunoglobulin A 107 mg/dL (70-320); Immunoglobulin G 812 mg/dL (600-1540); Kappa Light Chain, Free 24.7 mg/L (3.3-19.4); Lambda Light Chain, Free 25.0 mg/L (5.7-26.3)
[2025-06-11 06:36] LABS: Beta 2 Microglobulin 2.31 mg/L (< OR = 2.51); Immunoglobulin M 20 mg/dL (50-300); Kappa/Lambda, Free Ratio 0.99 (0.26-1.65); Protein, total, serum 6.3 g/dL (6.1-8.1)
== END | disposition home or self-care (01) ==
LOC: SCTO 09:00
PROVIDERS: PCP Family Medicine; Referring Provider Internal Medicine Hematology & Oncology; Visit Provider Internal Medicine Hematology & Oncology
DX: C25.9 Malignant neoplasm of pancreas, unspecified (principal); R77.9 Abnormality of plasma protein, unspecified; C90.00 Multiple myeloma not having achieved remission
CPT/HCPCS: 36415; 80053; 82232; 82570; 82784; 83521; 84155; 84156; 84165; 84166; 85025; 86334

== ENCOUNTER 2025-06-14 09:46 | Outpatient (RCR) | payer MEDICARE, MEDICAID, SELFPAY ==
--- NOTE | 2025-06-14 10:38 | CTCFLWUP_ITS ---
Patient: BRISEYDA WALSH : 1950 Page 2 of 2 FOLLOW UP NOTE DATE OF SERVICE: 06/14/2025 NAME: BRISEYDA WALSH ACCOUNT: [id number] : 1950 AGE: 74 INTERVAL HISTORY Patient is on maintenance Revlimid. Patient responded very well to VRD. Patient also was seen at [place] and recommendation was to decrease his maintenance Revlimid and continue on acyclovir and aspirin. Patient is doing well. Patient does have neuropathy and have pain in the left leg. Plan is to get ultrasound of the left leg echocardiogram and increase gabapentin dose to 300 mg 3 times daily. ONCOLOGY HISTORY: DIAGNOSIS: Malignant neoplasm of pancreas, unspecified [ICD10] C25.9; Abnormality of plasma protein, unspecified [ICD10] R77.9; Multiple myeloma not having achieved remission [ICD10] C90.00 DATE OF DIAGNOSIS: 10/04/2024 STAGE/TNM: 80 percent myeloma cells. TREATMENT HISTORY: Care?Plan Start?Date Cycle Day Intent VRd?low?dex?he 11/06/2024 1 21 Palliative zometa?q?30?days,?q?90?days?for?bone?mets 03/06/2025 1 90 Palliative HISTORY OF PRESENT ILLNESS: Patient with myeloma for follow up. Had radiation and has been on vcd low dose. Unable to tolerate velcade and steroids /. 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 Tobacco?Use?Years:?25 Tobacco?Use:?FORMER?SMOKER ETOH?Use:?DENIES Drug?Note:?DENIES MEDICATIONS: 1. acetaminophen-codeine - 300-30 mg 1 tab Q6 2. Aspir-Low - 81 mg 1 tab Daily 3. atorvastatin - 40 mg 1 tab Daily 4. Compazine - 5 mg 5 mg Daily 5. doxazosin - 8 mg 1 tab Daily 6. gabapentin - 100 mg 2 Capsule 2 capsule every 8 hrs for neuropathy 7. lenalidomide - 10 mg 1 Capsule take 1 tab daily for 1-21 days and 7 days off ever 8. lisinopril - 2.5 mg 1 tab Daily 9. omeprazole magnesium - 20 mg 1 tab Daily 10. ondansetron - 8 mg 8 mg Daily 11. REVLIMID - 25 mg 1 Capsule Daily 12. Senokot-S - 8.6-50 mg 2 tab twice a day Medications Last Reconciled by Nelida Duvall MD on 06/14/2025 ALLERGIES: No Known Drug Allergies REVIEW OF SYSTEMS: A complete 14-point review of systems was performed and is negative except as noted in interval history. PHYSICAL EXAMINATION: VITAL SIGNS: Temperature?97.6, B/P?119/66, Oxygen?Saturation?98% Weight?150?lbs (Change?since?06/07/25:?-2?lbs) PAIN: 0 - No pain ECOG Performance Status: 1 - Symptomatic; ambulatory; restricted in strenuous activity GENERAL APPEARANCE: Appears well, in no apparent distress, appropriately interactive. HEENT: Normocephalic, no temporal wasting, normal conjunctiva, no scleral icterus, normal hearing, lips without lesions, neck normal range of motion. CARDIOVASCULAR: Not assessed. PULMONARY: Normal respiratory effort, no respiratory distress or use of accessory muscles, speaking in full sentences, no tachypnea. EXTREMITIES: No pedal edema or cyanosis. SKIN: Normal skin appearance. NEUROLOGIC: Alert and oriented x4. PSHYCHIATRIC: Appropriate affect, mood normal, behavior normal, intact thought and speech. LABORATORY DATA: I have personally reviewed and interpreted each of the patient?s relevant lab tests, abnormal findings are below: Date 05/14/25 06/04/25 ??WHITE?BLOOD?COUNT?(Thou/mm3) 5.0 3.7?L ??RED?BLOOD?COUNT?(Miln/mm3) 3.20?L 3.40?L ??HEMOGLOBIN?(gm/dl) 10.3?L 10.9?L ??HEMATOCRIT?(%) 30.1?L 33.3?L ??PLATELET?COUNT?(Thou/mm3) 149 212 ??NEUTROPHILS?%,?AUTO?(%) 70 70 ??LYMPH?%,?AUTO?(%) 12 18 ??NEUTROPHILS,?AUTO?(Thou/mm3) 3.5 2.6 ??GLUCOSE,RANDOM?(mg/dL) 110?H 106 ??BLOOD?UREA?NITROGEN?(mg/dL) 16 15 ??CREATININE?(mg/dL) 0.90 1.00 ??SODIUM?(mmol/L) 142 142 ??POTASSIUM?(mmol/L) 3.2?L 3.6 ??CHLORIDE?(mmol/L) 104 104 ??CrCl?(CandG)?(ml/min) 65.85 60.48 ??AST/SGOT?(Unit/L) 18 18 ??ALT/SGPT?(Unit/L) 13 17 ??ALKALINE?PHOSPHATASE?(Unit/L) 71 75 ??BILIRUBIN,?TOTAL?(mg/dL) 0.6 0.4 ??PROTEIN?TOTAL?(gm/dl) 6.0 6.0 ??ALBUMIN,?SERUM?(gm/dl) 4.1 4.4 ??GLOBULIN?(gm/dl) 1.9?L 1.6?L ??ALBUMIN/GLOBULIN?RATIO 2.2 2.8?H ??CALCIUM,?SERUM?(mg/dL) 9.0 9.5 ??CALCIUM?SERUM?(CORRECTED)?(mg/dL) 9.0 9.5 ASSESSMENT/PLAN: Multiple myeloma On vcd Stopped velcade and dexamethasone and cont revalmid Revlimid at decreased dose of 10 mg daily day 1 to day 21 every 28 days Calcium and vit d3 Cont Zometa every 3 months Continue acyclovir continue baby aspirin Follow-up after ultrasound echocardiogram in 3 months ORDERS: Order # Description [id number] Comprehensive Metabolic Panel - 12 + CBC with Auto Diff [id number] Serum Protein Electrophoresis + Serum Immunofixation Electrophoresis + Beta-2 Microglobulin + Free kappa and lambda light chains plus ratio, quantitative + Quant Immunoglobulins [id number] Follow Up 3 Months RETURN TO CLINIC: I reviewed the diagnosis, prognosis, and recommended treatment/procedure options with the patient (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 We also discussed the option of no treatment and the possibility of clinical trial participation, if applicable. All questions were addressed, and they demonstrated understanding. They provided informed consent to proceed with the proposed plan of care. BILLING AND COMPLIANCE: I reviewed external records from providers outside my specialty as summarized above. I spent a total of 50 minutes on this patient?s care on the day of their visit excluding time spent related to any billed procedures. This time includes time spent with the patient as well as time spent documenting in the medical record, reviewing patients records and tests, obtaining history, placing orders, communicating with other healthcare professionals, counseling the patient, family or caregiver, and/or care coordination for the diagnoses above. Electronically Signed by: Rebel Hatch MD T: 10:35 AM CC: YARELIS Charles PCP: Lex Atkins Referring: Rebel Hatch This document was completed utilizing speech recognition software. Grammatical errors, random word insertions, pronoun errors, and incomplete sentences are an occasional consequence of this system due to software limitations, ambient noise, and hardware issues. Any formal questions or concerns about the content, text or information contained within the body of this dictation should be directly addressed to the provider for clarification.
== END 2025-07-01 23:59 | disposition home or self-care (01) ==
LOC: SCTC 09:46
PROVIDERS: PCP Family Medicine; Referring Provider Internal Medicine Hematology & Oncology; Visit Provider Internal Medicine Hematology & Oncology
DX: C90.00 Multiple myeloma not having achieved remission (principal); G62.9 Polyneuropathy, unspecified; M79.605 Pain in left leg
CPT/HCPCS: 96365; 99212; J3489; J7040; G0463

== ENCOUNTER → 2025-07-08 | Outpatient (CLI) | payer MEDICARE, MEDICAID, SELFPAY ==
--- NOTE | 2025-07-08 07:30 | ECHO_ITS ---
Patient Info Name: Lata Rowley Age: 74 years : 1950 Gender: Male Ht: 165 cm Wt: 68 kg BSA: 1.78 m2 BP: 93 / 49 mmHg HR: 79 bpm Exam Date: 07/08/2025 7:26 AM Admit Date: 07/08/2025 Site: 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 Inside: Ivis Heller Ordering Physician: Rebel Hatch Referring Physician: Rebel Hatch Study Info Indications Malignant neoplasm of pancreas, unspecified - Primary Location: SDIM Left Ventricular Outflow Tract Name Value Normal LVOT 2D LVOT Diameter 1.8 cm LVOT Doppler LVOT Peak Velocity 107 cm/s LVOT Mean Gradient 2 mmHg LVOT VTI 24 cm LVOT VTI/AV VTI Ratio 0.8 LVOT Stroke Volume 61 ml Pulmonic Valve Name Value Normal PV Doppler PV Peak Velocity 111 cm/s PV Regurgitation Doppler AR Peak End Diastolic Velocity 94 cm/s Mitral Valve Name Value Normal MV Doppler MV Decel [place] 453 cm/s2 MV PHT 49 ms MV Area (PHT) 4.5 cm2 4.0-5.0 MV Diastolic Function MV E Peak Velocity 77 cm/s MV A Peak Velocity 98 cm/s MV E/A 0.8 MV Annular TDI MV Septal e' Velocity 6.4 cm/s MV E/e' (Septal) 11.9 MV Lateral e' Velocity 10.3 cm/s MV E/e' (Lateral) 7.4 MV e' Average 8.36 cm/s MV E/e' (Average) 9.7 Tricuspid Valve Name Value Normal TV Regurgitation Doppler TR Peak Velocity 267 cm/s Estimated PAP/RSVP RA Pressure 3 mmHg <=5 PA Systolic Pressure 32 mmHg <36 RV Systolic Pressure 32 mmHg <36 TV Annular TDI TV Lateral Yuliana s' Velocity 14.6 cm/s >=9.5 Aorta Name Value Normal Ascending Aorta Ao Root Diameter (2D) 2.5 cm Ao Root Diam Index (2D) 1.4 cm/m2 Aortic Valve Name Value Normal AV 2D/MM AV Cusp Sep (MM) 1.7 cm AV Doppler AV Peak Velocity 152 cm/s AV Mean Gradient 4 mmHg AV VTI 30 cm AV Area (Cont Eq VTI) 2.1 cm2 >=3.0 AV Area (Cont Eq Von) 1.8 cm2 AV DI (Von) 0.70 AV Regurgitation 2D LVOT Area 2.5 cm2 Ventricles Name Value Normal LV Dimensions 2D/MM IVS Diastolic Thickness (2D) 0.8 cm 0.6-1.0 LVID Diastole (2D) 4.4 cm 4.2-5.8 LVIW Diastolic Thickness (2D) 0.8 cm 0.6-1.0 LVID Systole (2D) 3.1 cm 2.5-4.0 LVOT Diameter 1.8 cm LV Mass (2D Cubed) 109.44 g 88.00-224.00 LV Mass Index (2D Cubed) 62 g/m2 49-115 Relative Wall Thickness (2D) 0.36 <=0.42 IVS/LVIW Diastolic Thickness (2D) 1.00 0.00-1.50 LV Fractional Shortening/Ejection Fraction 2D/MM LV Fractional Shortening (2D) 30 % 25-43 LV EF (2D Teichholz) 57 % RV Dimensions 2D/MM TV Lateral Yuliana s' Velocity 14.6 cm/s >=9.5 Atria Name Value Normal LA Dimensions LA Volume (4C A-L) 41 ml LA Volume (BP A-L) 43 ml Left Ventricle Left ventricular chamber dimension is normal. Left ventricular systolic function is normal with visually estimated ejection fraction of 60-65%. There is concentric remodeling noted in the left ventricle. Left ventricular segmental wall motion is normal. There is normal diastolic function in the left ventricle. Right Ventricle Right ventricular chamber dimension is normal. Right ventricular systolic function is normal. Left Atrium Left atrial chamber dimension is mildly enlarged. Right Atrium Right atrial chamber dimension is normal. Aortic Valve The aortic valve is trileaflet. There is mild aortic valve sclerosis. There is no aortic valve stenosis with a peak velocity of 152 cm/s, mean gradient of 4 mmHg, and aortic valve area of 2.1 cm2. There is no aortic valve regurgitation. Pulmonic Valve The pulmonic valve is normal. There is no pulmonic valve stenosis. There is trace pulmonic regurgitation. Mitral Valve The mitral valve has a calcified annulus. There is no mitral valve stenosis. There is mild mitral valve regurgitation. Tricuspid Valve The tricuspid valve leaflets are normal. There is no tricuspid valve stenosis. There is mild to moderate tricuspid valve regurgitation. No pulmonary hypertension, estimated pulmonary arterial systolic pressure is 32 mmHg and systemic blood pressure of 93 mmHg in systole. Pericardium/Pleural The pericardium appears normal. There is trivial pericardial effusion with no tamponade. No pleural effusion visualized. Inferior Vena Cava Normal inferior vena cava with >50% collapse upon inspiration consistent with normal right atrial pressure, 3 mmHg. Aorta The aortic measurements are indexed to age and body surface area. The aortic root at the sinus of Valsalva is not well visualized. The prox ascending aorta is not well visualized. Summary 1. Left ventricle size is normal and systolic function is normal. Estimated ejection fraction is 60-65%. There is normal diastolic function. There is concentric remodeling noted. 2. Right ventricle chamber size is normal and systolic function is normal. Estimated RVSP is 32 mmHg. 3. There is mild aortic valve sclerosis with no stenosis and no regurgitation. 4. There is no mitral valve stenosis and mild regurgitation. Mild mitral valve posterior thickening. 5. There is mild to moderate tricuspid valve regurgitation. 6. trace pulmonic valve regurgitation. 7. The left atrium is mildly enlarged. The right atrium is normal. 8. Normal IVC with estimated RA pressure 3 mmHg. Report Signatures Finalized by Gt Coronel on 07/08/2025 08:00 PM
== END | disposition home or self-care (01) ==
LOC: SDIM 07-12 08:02
PROVIDERS: PCP Family Medicine; Referring Provider Internal Medicine Hematology & Oncology; Visit Provider Internal Medicine Hematology & Oncology
DX: I35.8 Other nonrheumatic aortic valve disorders (principal); I05.9 Rheumatic mitral valve disease, unspecified; I08.1 Rheumatic disorders of both mitral and tricuspid valves; I51.7 Cardiomegaly; C25.9 Malignant neoplasm of pancreas, unspecified; C90.00 Multiple myeloma not having achieved remission
CPT/HCPCS: 93306

== ENCOUNTER → 2025-07-09 | Outpatient (CLI) | payer MEDICARE, MEDICAID, SELFPAY ==
--- NOTE | 2025-07-09 15:44 | XR_ITS ---
Examination: Duplex scan of the lower extremity, unilateral left Date and time of exam: July 09, 2025 1605 hours INDICATIONS: Left leg swelling and pain beginning 6 days ago Technique: Duplex scan of the extremity veins using B-mode/grayscale imaging and Doppler spectral analysis and color flow Attention is directed to internal echogenicity, compression and augmentation involving these veins, color flow assessment, spectral analysis Findings: Major deep venous structures in the extremity demonstrate normal course and caliber. There is no evidence of deep vein thrombosis. Normal color flow and spectral analysis Impression: Negative for DVT..
[2025-07-09 18:17] LABS: Basophils # (Auto) 0.0 Thou/mm3 (0.0-0.2); Basophils % (Auto) 0 % (0-2.5); Eosinophils # (Auto) 0.2 Thou/mm3 (0.0-0.5); Eosinophils % (Auto) 5 % (0-10); Hematocrit 32.4 % (41.0-53.0); Hemoglobin 10.6 g/dL (13.5-16.0); Immature Granulocytes Auto 0.01 Thou/mm3 (0.00-0.00); Lymphocytes # (Auto) 0.7 Thou/mm3 (1.0-4.8); Lymphocytes % (Auto) 21 % (10-50); Mean Corpuscular HGB Conc 32.7 g/dl (31.0-37.0); Mean Corpuscular Hemoglobin 31.7 pg (25.0-35.0); Mean Corpuscular Volume 97 fL (80-100); Monocytes # (Auto) 0.5 Thou/mm3 (0.0-0.8); Monocytes % (Auto) 15 % (0-12); Neutrophils # (Auto) 1.9 Thou/mm3 (1.8-7.7); Neutrophils % (Auto) 58 % (37-80); Nucleated Red Blood Cell # 0.00 Thou/mm3 (0.00-0.00); Nucleated Red Blood Cell % 0 /100 WBC (0); Platelet Count 136 Thou/mm3 (140-440); RDW Standard Deviation 52.1 fL (35.1-43.9); Red Blood Count 3.34 Miln/mm3 (4.50-5.90); White Blood Count 3.2 Thou/mm3 (3.8-10.6)
[2025-07-09 18:37] LABS: Alanine Aminotransferase 10 U/L (10-49); Albumin, Serum 4.4 gm/dL (3.4-4.8); Albumin/Globulin Ratio 2.0 (1.2-2.2); Alkaline Phosphatase 67 U/L (46-116); Anion Gap 8 (7-16); Aspartate Amino Transferase 14 U/L (0-34); BUN/Creatinine Ratio 12 Ratio (12-20); Bilirubin,Total 0.5 mg/dL (0.3-1.2); Blood Urea Nitrogen 11 mg/dL (9-23); Calcium 8.8 mg/dL (8.3-10.6); Calcium (Corrected) 8.8 mg/dL (8.5-10.1); Carbon Dioxide 26.9 mMol/L (20.0-31.0); Chloride 107 mMol/L (98-107); Creatinine (Component) 0.9 mg/dL (0.6-1.3); Globulin 2.2 gm/dL (2.3-3.5); Glucose 96 mg/dL (74-106); Osmolality,Calculated 282 (275-295); Potassium 3.5 mMol/L (3.4-5.1); Sodium 142 mMol/L (136-145); Total Protein 6.6 gm/dL (5.7-8.2); eGFR > 60 See Note
[2025-07-20 19:48] LABS: Abnormal protein band 1 0.2 g/dL (NONE DETECTED); Albumin 3.9 g/dL (3.8-4.8); Alpha-1-Globulin 0.3 g/dL (0.2-0.3); Alpha-2-Globulin 0.8 g/dL (0.5-0.9); Beta-1-Globulin 0.3 g/dL (0.4-0.6); Beta-2-globulin 0.3 g/dL (0.2-0.5); Gamma Globulin 0.8 g/dL (0.8-1.7); Immunoglobulin A 118 mg/dL (70-320); Immunoglobulin G 911 mg/dL (600-1540); Kappa Light Chain, Free 22.9 mg/L (3.3-19.4); Lambda Light Chain, Free 24.6 mg/L (5.7-26.3)
[2025-07-24 06:53] LABS: Beta 2 Microglobulin 2.18 mg/L (< OR = 2.51); Immunoglobulin M 20 mg/dL (50-300); Kappa/Lambda, Free Ratio 0.93 (0.26-1.65); Protein, total, serum 6.4 g/dL (6.1-8.1)
== END | disposition home or self-care (01) ==
LOC: CDIM 16:00 → SCTO 16:19
PROVIDERS: Referring Provider Internal Medicine Hematology & Oncology; Visit Provider Radiology Diagnostic Radiology
DX: C25.9 Malignant neoplasm of pancreas, unspecified (principal); R77.9 Abnormality of plasma protein, unspecified; C90.00 Multiple myeloma not having achieved remission
CPT/HCPCS: 36415; 80053; 82232; 82784; 83521; 84155; 84165; 85025; 86334; 93971

== ENCOUNTER 2025-07-10 11:08 | Outpatient (RCR) | payer MEDICARE, MEDICAID, SELFPAY ==
--- NOTE | 2025-07-10 12:58 | CTCFLWUP_ITS ---
Patient: BRISEYDA WALSH : 1950 Page 2 of 2 FOLLOW UP NOTE DATE OF SERVICE: 07/10/2025 NAME: BRISEYDA WALSH ACCOUNT: [id number] : 1950 AGE: 74 INTERVAL HISTORY: Visit summary -patient says his pain is not controlled. Patient's gabapentin was increased at this visit. Patient also had bilateral lower extremity edema and DVT ultrasound was negative. Patient started on p.o. Lasix with KCl and advised to follow-up with the primary care. Patient's labs reviewed and kappa chain is in the 20s. Will continue maintenance Revlimid. Patient advised to come back in. Advised to continue taking his baby aspirin and follow-up with primary care. I will see him back in the clinic in 3 months. ONCOLOGY HISTORY:?[facility] Oncology Hx? DIAGNOSIS: Malignant neoplasm of pancreas, unspecified [ICD10] C25.9; Abnormality of plasma protein, unspecified [ICD10] R77.9; Multiple myeloma not having achieved remission [ICD10] C90.00 DATE OF DIAGNOSIS: 10/04/2024 STAGE/TNM: 80 percent myeloma cells. TREATMENT HISTORY: Care?Plan Start?Date Cycle Day Intent VRd?low?dex?he 11/06/2024 1 21 Palliative zometa?q?30?days,?q?90?days?for?bone?mets 03/06/2025 1 90 Palliative HISTORY OF PRESENT ILLNESS: Patient with myeloma for follow up. Had radiation and has been on vcd low dose. Unable to tolerate velcade and steroids /. [place] chains have normalized Patient have minimal tumor burden OTHER MEDICAL HISTORY/CONDITIONS: HTN,?HIGH?CHOLESTEROL,?STROKE?2017 HERNIA?REPAIR?30YRS?AGO FAMILY HISTORY: ?Clone Family Hx? SOCIAL HISTORY: Occupational?History:?RETIRED, LIVES WITH , SON Education?Level:?Completed something less than 8th grade Marital?Status:? Tobacco?Use?Years:?25 Tobacco?Use:?FORMER?SMOKER ETOH?Use:?DENIES Drug?Note:?DENIES MEDICATIONS: 1. acyclovir - 400 mg 1 tab twice a day 2. Aspir-Low - 81 mg 1 tab Daily 3. atorvastatin - 40 mg 1 tab Daily 4. doxazosin - 8 mg 1 tab Daily 5. gabapentin - 300 mg 2 Capsule 2 capsule every 8 hrs as needed for pain 6. Lasix - 20 mg 1 tab Daily 7. lenalidomide - 10 mg 1 Capsule take 1 tab daily for 1-21 days and 7 days off ever 8. lisinopril - 2.5 mg 1 tab Daily 9. omeprazole - 20 mg 1 tab Daily 10. potassium chloride - 10 mEq 1 tab Daily?[place] Meds? Medications Last Reconciled by Nelida Bradshaw MA on 07/10/2025 ALLERGIES: No Known Drug Allergies REVIEW OF SYSTEMS: A complete 14-point review of systems was performed and is negative except as noted in interval history. PHYSICAL EXAMINATION:?CloneBlock PE? VITAL SIGNS: PAIN: 5 - Between moderate and severe pain ECOG Performance Status: 1 - Symptomatic; ambulatory; restricted in strenuous activity GENERAL APPEARANCE: Appears well, in no apparent distress, appropriately interactive. HEENT: Normocephalic, no temporal wasting, normal conjunctiva, no scleral icterus, normal hearing, lips without lesions, neck normal range of motion. CARDIOVASCULAR: Not assessed. PULMONARY: Normal respiratory effort, no respiratory distress or use of accessory muscles, speaking in full sentences, no tachypnea. EXTREMITIES: No pedal edema or cyanosis. SKIN: Normal skin appearance. NEUROLOGIC: Alert and oriented x4. PSHYCHIATRIC: Appropriate affect, mood normal, behavior normal, intact thought and speech. LABORATORY DATA: I have personally reviewed and interpreted each of the patient?s relevant lab tests, abnormal findings are below: Date 06/04/25 07/09/25 ??WHITE?BLOOD?COUNT?(Thou/mm3) 3.7?L 3.2?L ??RED?BLOOD?COUNT?(Miln/mm3) 3.40?L 3.34?L ??HEMOGLOBIN?(gm/dl) 10.9?L 10.6?L ??HEMATOCRIT?(%) 33.3?L 32.4?L ??PLATELET?COUNT?(Thou/mm3) 212 136?L ??NEUTROPHILS?%,?AUTO?(%) 70 58 ??LYMPH?%,?AUTO?(%) 18 21 ??NEUTROPHILS,?AUTO?(Thou/mm3) 2.6 1.9 ??GLUCOSE,RANDOM?(mg/dL) 106 96 ??BLOOD?UREA?NITROGEN?(mg/dL) 15 11 ??CREATININE?(mg/dL) 1.00 0.90 ??SODIUM?(mmol/L) 142 142 ??POTASSIUM?(mmol/L) 3.6 3.5 ??CHLORIDE?(mmol/L) 104 107 ??CrCl?(CandG)?(ml/min) 60.48 67.20 ??AST/SGOT?(Unit/L) 18 14 ??ALT/SGPT?(Unit/L) 17 10 ??ALKALINE?PHOSPHATASE?(Unit/L) 75 67 ??BILIRUBIN,?TOTAL?(mg/dL) 0.4 0.5 ??PROTEIN?TOTAL?(gm/dl) 6.0 6.6 ??ALBUMIN,?SERUM?(gm/dl) 4.4 4.4 ??GLOBULIN?(gm/dl) 1.6?L 2.2?L ??ALBUMIN/GLOBULIN?RATIO 2.8?H 2.0 ??CALCIUM,?SERUM?(mg/dL) 9.5 8.8 ??CALCIUM?SERUM?(CORRECTED)?(mg/dL) 9.5 8.8 ASSESSMENT/PLAN:?Robert Hatch Assessment/Plan? Multiple myeloma Patient completed VCT and on maintenance Revlimid Revlimid at decreased dose of 10 mg daily day 1 to day 21 every 28 days Calcium and vit d3 Cont Zometa every 3 months Continue acyclovir continue baby aspirin Ultrasound and echocardiogram reviewed Patient had bilateral lower extremity edema Ordered Lasix and KCl and told patient no refills will be given Patient has to follow-up with his primary care for his chronic medical issues RTC in 3 months ORDERS: Order # Description [id number] Follow Up 3 Months RETURN TO CLINIC: I reviewed the diagnosis, prognosis, and recommended treatment/procedure options with the patient (and/or their legal retail sales representative), including the potential benefits, risks, side effects and alternative therapies. We also discussed the option of no treatment and the possibility of clinical trial participation, if applicable. All questions were addressed, and they demonstrated understanding. They provided informed consent to proceed with the proposed plan of care. BILLING AND COMPLIANCE: I reviewed external records from providers outside my specialty as summarized above. I spent a total of 50 minutes on this patient?s care on the day of their visit excluding time spent related to any billed procedures. This time includes time spent with the patient as well as time spent documenting in the medical record, reviewing patients records and tests, obtaining history, placing orders, communicating with other healthcare professionals, counseling the patient, family or caregiver, and/or care coordination for the diagnoses above. Electronically Signed by: Rebel Hatch MD T: 12:55 PM CC: YARELIS Charles PCP: Lex Atkins Referring: Lex Atkins This document was completed utilizing speech recognition software. Grammatical errors, random word insertions, pronoun errors, and incomplete sentences are an occasional consequence of this system due to software limitations, ambient noise, and hardware issues. Any formal questions or concerns about the content, text or information contained within the body of this dictation should be directly addressed to the provider for clarification.
== END 2025-08-01 23:59 | disposition home or self-care (01) ==
LOC: SCTC 11:08
PROVIDERS: PCP Family Medicine; Referring Provider Family Medicine; Visit Provider Internal Medicine Hematology & Oncology
DX: C90.00 Multiple myeloma not having achieved remission (principal); R60.0 Localized edema
CPT/HCPCS: 99212; G0463